=== PATIENT | female | born 1950 | race Caucasian/White ===

== ENCOUNTER 2017-02-11 22:59 | Emergency (ER) | payer OTHER ==
[~2017-02-11] VITALS: Ht 154.9 cm; Wt 90.7 kg
--- NOTE | 2017-02-12 | Emergency Room Report ---
History of Present Illness General Chief Complaint: Wound Recheck/Suture Removal Source: Patient Present Illness HPI 67YOF walk-in with "The RN mechanical maintenance supervisor Jarred on 4th floor told me to go to the ER to get my legs checked before I can see my son again." Patient states son is [place] 4th floor [place] [facility] [place] Patient endorses wounds to back of thighs for 1.5 years and "chronic venous stasis ulcers" of bilateral lower legs. Was admitted at [facility] recently per patient and had IV and PO Abx. Not on Abx currently No history of DM Denies fever/chills Allergies: Coded Allergies: No Known Allergies (Unverified , 02/11/17) Patient History Past Medical History: other - Chronic venous stasis ulcers Past Surgical History: none Pertinent Family History: none Social History: Denies: smoking, alcohol use, drug use Last Menstrual Period: N/A Now: No Immunizations: UTD Reviewed Nursing Documentation: PMH: Agreed, PSxH: Agreed Nursing Documentation-PMH Hx Hypertension: Yes Review of Systems All Other Systems: negative except mentioned in HPI Physical Exam Vital Signs Date Time Temp Pulse Resp B/P (MAP) Pulse Ox O2 Delivery O2 Flow Rate FiO2 02/11/17 23:13 98.2 69 16 146/69 99 Room Air Sp02 EP Interpretation: reviewed, normal General Appearance: normal inspection, well appearing, no apparent distress, alert, GCS 15, non-toxic, obese, other - Wheelchair bound, unkempt, dirty Head: normocephalic, atraumatic Eyes: bilateral eye PERRL, bilateral eye EOMI ENT: normal ENT inspection, hearing grossly normal, normal voice Neck: normal inspection, full range of motion, supple, no bony tend Respiratory: normal inspection, lungs clear, normal breath sounds, no respiratory distress, no retraction, no wheezing Cardiovascular #1: regular rate, rhythm, no edema Gastrointestinal: normal inspection, normal bowel sounds, non tender, soft, no guarding, no hernia Genitourinary: no CVA tenderness Musculoskeletal: normal inspection, back normal, normal range of motion, Aneta' s Sign negative Neurologic: normal inspection, alert, oriented x3, responsive, leather carver III-XII nml as tested, motor strength/tone normal, speech normal Psychiatric: normal inspection, judgement/insight normal, mood/affect normal Skin: other - Bilateral posterior thighs: large areas of abrasions. No cellulitis. No palpable warmth. No pus drainage. Bilateral lower extremities wrapped with GAURI wraps and kerlex - unwrapped to reveal 3 areas of skin breakdown - 2 on left anteiror and medial lower left leg and 1 area of skin breakdown on right lower leg. Again, no sign of infection. No blisters. No pus. No warmth Medical Decision Making Diagnostic Impression: Primary Impression: Encounter for wound re-check Additional Impressions: Skin breakdown Abrasions of multiple sites Chronic venous stasis dermatitis of both lower extremities ER Course Wounds unwrapped, cleaned, redressed VSS> Afebrile. No sign of infection No decubitus ulcers Encouraged more mobility - patient states she stands up out of chair with support - to prevent worsening skin breakdown DC home Last Vital Signs Date Time Temp Pulse Resp B/P (MAP) Pulse Ox O2 Delivery O2 Flow Rate FiO2 02/11/17 23:13 98.2 69 16 146/69 99 Room Air Referrals: NON PHYSICIAN (PCP) JARED PETE M.D. Feb 12, 2017 00:00
[2017-02-12 00:02] VITALS: BP 146/69
[2017-02-12 00:35] VITALS: BP 146/69
== END 2017-02-12 00:30 | disposition home or self-care (01) ==
LOC: EMR 23:32
DX: I83.029 Varicose veins of left lower extremity with ulcer of unspecified site (principal); I83.019 Varicose veins of right lower extremity with ulcer of unspecified site; I87.2 Venous insufficiency (chronic) (peripheral); S70.312A Abrasion, left thigh, initial encounter; S70.311A Abrasion, right thigh, initial encounter; X58.XXXA Exposure to other specified factors, initial encounter; Y92.89 Other specified places as the place of occurrence of the external cause; I10 Essential (primary) hypertension
CPT/HCPCS: 99281

== ENCOUNTER 2017-02-12 23:24 | Emergency (ER) | payer OTHER ==
[~2017-02-12] VITALS: Ht 152.4 cm; Wt 90.7 kg
--- NOTE | 2017-02-13 00:17 | Emergency Room Report ---
History of Present Illness General Chief Complaint: Wound Recheck/Suture Removal Source: Patient, Family Member Present Illness HPI Is a 67-year-old female who is wheelchair-bound. She has a history of venous stasis ulcer. She was here yesterday for wound check in her legs. She has some bleeding ulcer that was cleaned and wrapped. Her son is admitted here for seizure. She came down to the waiting room and was sitting there for several hours charging her phone. She then checked in saying that she has some bleeding in her thighs. No nausea no vomiting. Denies any other complaint. Onset today. Allergies: Coded Allergies: No Known Allergies (Unverified , 02/11/17) Patient History Past Medical History: see triage record, old chart reviewed Past Surgical History: other Pertinent Family History: none Social History: Denies: smoking Now: No Immunizations: other Reviewed Nursing Documentation: PMH: Agreed, PSxH: Agreed Nursing Documentation-PMH Hx Hypertension: Yes Review of Systems Eye: Denies: eye pain, blurred vision ENT: Denies: ear pain, nose congestion, throat swelling Respiratory: Denies: cough, shortness of breath Cardiovascular: Denies: chest pain, palpitations Gastrointestinal: Denies: abdominal pain, diarrhea, nausea, vomiting Musculoskeletal: Denies: back pain, joint pain Skin: Denies: rash Neurological: Denies: headache, numbness Endocrine: Denies: increased thirst, increased urine Hematologic/Lymphatic: Denies: easy bruising All Other Systems: negative except mentioned in HPI Physical Exam Vital Signs Date Time Temp Pulse Resp B/P (MAP) Pulse Ox O2 Delivery O2 Flow Rate FiO2 02/13/17 00:03 97.0 73 16 133/56 96 Room Air vitals normal Sp02 EP Interpretation: reviewed, normal General Appearance: well appearing, no apparent distress, alert, obese Head: normocephalic, atraumatic Eyes: bilateral eye PERRL, bilateral eye EOMI ENT: hearing grossly normal, normal pharynx Neck: full range of motion, supple, no meningismus Respiratory: chest non-tender, lungs clear, normal breath sounds Cardiovascular #1: regular rate, rhythm, no murmur Gastrointestinal: normal bowel sounds, non tender, no mass, no organomegaly, no bruit, non-distended Musculoskeletal: back normal, other - Bilateral mid thighs with pressure ulcers. No active bleeding. No abscess. Psychiatric: mood/affect normal Skin: warm/dry Medical Decision Making Diagnostic Impression: Primary Impression: Pressure ulcer of upper thigh Qualified Codes: L89.202 - Pressure ulcer of unspecified hip, stage 2 ER Course Patient with pressure ulcers of her thighs. This is from friction a sitting on her we'll chair constantly. She can't transfer [id number] and bear weight. Advised her to increase mobility. No evidence of infection. Wound was dressed and patient will be discharged home. Last Vital Signs Date Time Temp Pulse Resp B/P (MAP) Pulse Ox O2 Delivery O2 Flow Rate FiO2 02/13/17 00:03 97.0 73 16 133/56 96 Room Air Status: improved Disposition: HOME, SELF-CARE Condition: Stable Referrals: [facility]ERR[facility] (PCP) Additional Instructions: Followup with your DrRusty in 7 days. Tried to get out of the wheelchair more frequently. Keep wound clean. Return if worse. JORDAN JARA M.D. Feb 13, 2017 00:17
[2017-02-13 00:30] VITALS: BP 133/56
[2017-02-13 00:49] VITALS: BP 133/56
== END 2017-02-13 00:49 | disposition home or self-care (01) ==
LOC: EMR 23:49
DX: L89.892 Pressure ulcer of other site, stage 2 (principal); I87.8 Other specified disorders of veins
CPT/HCPCS: 99282

== ENCOUNTER 2017-02-16 12:07 | Inpatient (IN) | payer OTHER ==
[~2017-02-16] VITALS: Ht 162.6 cm; Wt 64.9 kg
[2017-02-16 12:30] VITALS: BP 155/69
[2017-02-16] MEDS ORDERED: Vancomycin 1 GM in NS 275 ML IV ONE (15:00)
[2017-02-16] MEDS ORDERED: Norco 5mg/325mg tab ORAL ONE (15:00)
[2017-02-16 16:11] LABS: BASOPHILS % (AUTO) 1.5 % (0.0-2.0); EOSINOPHILS % (AUTO) 6.2 % (0.0-3.0); LYMPHOCYTES % (AUTO) 21.2 % (20.0-45.0); MEAN CORPUSCULAR HEMOGLOBIN 26.9 PG (27.0-31.0); MEAN CORPUSCULAR HGB CONC 30.3 G/DL (32.0-36.0); MEAN CORPUSCULAR VOLUME 89 FL (80-99); MONOCYTES % (AUTO) 6.1 % (1.0-10.0); PLATELET COUNT 591 K/UL (150-450); RED BLOOD COUNT 4.04 M/UL (4.20-5.40); RED CELL DISTRIBUTION WIDTH 18.6 % (11.6-14.8); WHITE BLOOD COUNT 9.5 K/UL (4.8-10.8)
[2017-02-16 16:40] LABS: ALANINE AMINOTRANSFERASE 12 U/L (12-78); ALBUMIN/GLOBULIN RATIO 0.8 (1.0-2.7); ANION GAP 11 mmol/L (5-15); ASPARTATE AMINO TRANSFERASE 23 U/L (15-37); CALCIUM 9.9 MG/DL (8.5-10.1); CARBON DIOXIDE 25 MMOL/L (21-32); CHLORIDE 99 MMOL/L (98-107); CREATININE 1.5 MG/DL (0.55-1.30); GLOMERULAR FILTRATION RATE 34.9 mL/min (>60); POTASSIUM 4.5 MMOL/L (3.5-5.1); SODIUM 135 MMOL/L (136-145); TOTAL PROTEIN 8.7 G/DL (6.4-8.2)
[2017-02-16] MEDS ORDERED: Vancomycin 1gm inj IVPB ONE (16:41)
--- NOTE | 2017-02-16 16:41 | Emergency Room Report ---
History of Present Illness General Chief Complaint: General Complaint Source: Patient, EMS Present Illness HPI This patient is well-known to [facility]. She has a history of chronic venous stasis ulcers of her posterior thighs and lower extremities. She is non-ambulatory and is always in a wheelchair which is why she has developed ulcers on her posterior thighs. She has been seen at [facility]. She's also been seen here twice in the past 2 weeks for the same symptoms. The wounds are oozing and have a palpable liver. She is also in ongoing pain. She states that she was seen at [facility] and was admitted there for some time. She states that she is staying in hotel room is because she and her lost their apartment. She has been unable to arrange home health wound care secondary to her living situation. She states her symptoms are intolerable. She has no other complaints. Allergies: Coded Allergies: No Known Allergies (Unverified , 02/11/17) Patient History Past Medical History: other - Hypothyroid, non-ambulatory, venous stasis ulcers. Social History: Denies: smoking, alcohol use, drug use Reviewed Nursing Documentation: PMH: Agreed, PSxH: Agreed Nursing Documentation-PMH Hx Hypertension: Yes Review of Systems All Other Systems: negative except mentioned in HPI Physical Exam Vital Signs Date Time Temp Pulse Resp B/P (MAP) Pulse Ox O2 Delivery O2 Flow Rate FiO2 02/16/17 12:00 98.1 80 16 155/69 98 Room Air Sp02 EP Interpretation: reviewed, normal General Appearance: no apparent distress, alert, GCS 15, non-toxic Head: normocephalic, atraumatic Eyes: bilateral eye normal inspection, bilateral eye PERRL ENT: hearing grossly normal, normal pharynx, no angioedema, normal voice Neck: full range of motion, supple/symm/no masses Respiratory: chest non-tender, lungs clear, normal breath sounds, speaking full sentences Cardiovascular #1: regular rate, rhythm, no edema Gastrointestinal: normal bowel sounds, non tender, soft, non-distended, no guarding, no rebound Rectal: deferred Musculoskeletal: back normal, other - Large decubitus ulcers bilateral posterior thighs with surrounding erythema. BLE venous stasis w/ ulcerations. Neurologic: alert, oriented x3, responsive, motor strength/tone normal, sensory intact, speech normal Psychiatric: judgement/insight normal, memory normal, mood/affect normal, no suicidal/homicidal ideation Skin: well hydrated, other - See MSK exam Medical Decision Making Diagnostic Impression: Primary Impression: Cellulitis Additional Impressions: Decubitus ulcers Venous stasis ulcer ER Course This patient has ongoing decubitus ulcer aren't her bilateral posterior thighs. There is a foul odor and a large amount of purulent discharge to the area. There is surrounding erythema. This is concerning for cellulitis. Patient was given IV vancomycin. The patient has major social challenges. She is living in a hotel and is unable to get the wound care that she needs. She is not getting appropriate care and is gravely disabled. She'll be admitted for further assessment of her wound and treatment of her cellulitis. She will likely need to be placed into a [facility] facility. Laboratory Tests Test 02/16/17 15:40 White Blood Count 9.5 K/UL (4.8-10.8) Red Blood Count 4.04 M/UL (4.20-5.40) L Hemoglobin 10.9 G/DL (12.0-16.0) L Hematocrit 35.8 % (37.0-47.0) L Mean Corpuscular Volume 89 FL (80-99) Mean Corpuscular Hemoglobin 26.9 PG (27.0-31.0) L Mean Corpuscular Hemoglobin Concent 30.3 G/DL (32.0-36.0) L Red Cell Distribution Width 18.6 % (11.6-14.8) H Platelet Count 591 K/UL (150-450) H Mean Platelet Volume 5.0 FL (6.5-10.1) L Neutrophils (%) (Auto) 65.0 % (45.0-75.0) Lymphocytes (%) (Auto) 21.2 % (20.0-45.0) Monocytes (%) (Auto) 6.1 % (1.0-10.0) Eosinophils (%) (Auto) 6.2 % (0.0-3.0) H Basophils (%) (Auto) 1.5 % (0.0-2.0) Sodium Level Pending Potassium Level Pending Chloride Level Pending Carbon Dioxide Level Pending Blood Urea Nitrogen Pending Creatinine Pending Estimate Glomerular Filtration Rate Pending Glucose Level Pending Lactic Acid Level Pending Calcium Level Pending Total Bilirubin Pending Aspartate Amino Transferase (AST) Pending Alanine Aminotransferase (ALT) Pending Alkaline Phosphatase Pending Total Creatine Kinase Pending Total Protein Pending Albumin Pending Globulin Pending See EMR for labs Last Vital Signs Date Time Temp Pulse Resp B/P (MAP) Pulse Ox O2 Delivery O2 Flow Rate FiO2 02/16/17 12:30 98.1 16 155/69 98 Room Air 02/16/17 12:00 80 Disposition: ADMITTED INPATIENT Condition: Stable Scripts Trimethoprim/Sulfamethoxazole (Bactrim Ds Tablet) 1 Each Tablet 1 EA ORAL DAILY for 5 Days, TAB Prov: MY,ISMA 02/22/17 Ciprofloxacin* (CIPROFLOXACIN*) 250 Mg Tablet 250 MG ORAL EVERY 12 HOURS for 5 Days, TAB Prov: ISMA PEPE 02/22/17 Amlodipine Besylate (Norvasc) 5 Mg Tablet 5 MG ORAL BID for 30 Days, TAB Prov: ISMA PEPE 02/22/17 Referrals: [facility],REFERRING (PCP) TINA LAGUNA D.O. Feb 16, 2017 16:41
[2017-02-16] MEDS ORDERED: Miralax 17gm pkt ORAL PRN (16:45)
[2017-02-16] MEDS ORDERED: Nitroglycerin Subl 0.4mg tab SL PRN (16:45)
[2017-02-16] MEDS ORDERED: Albuterol/Ipratropium 3ml neb HHN PRN (16:45)
[2017-02-16 16:55] LABS: APPEARANCE,URINE CLEAR; KETONES,URINE NEGATIVE (NEGATIVE); LEUKOCYTE ESTERASE ,URINE 3+ (NEGATIVE); NITRITE,URINE NEGATIVE (NEGATIVE); PH,URINE 7 (4.5-8.0); PROTEIN,URINE NEGATIVE (NEGATIVE); UROBILINOGEN,URINE NORMAL MG/DL (0.0-1.0)
[2017-02-16 17:33] LABS: AMORPHOUS SEDIMENT,UR FEW /LPF; BACTERIA,URINE MANY /HPF; RBC,URINE 15-20 /HPF (0 - 2); SQUAMOUS EPITHELIAL CELL,UR MODERATE /LPF (NONE/OCC)
[2017-02-16] MEDS ORDERED: SYNTHROID25 MCG ORAL (17:42)
[2017-02-16] MEDS ORDERED: NEURONTIN100 MG ORAL (17:42)
[2017-02-16 18:07] VITALS: BP 158/63
[2017-02-16 19:30] VITALS: BP 164/69
[2017-02-16] MEDS: Cefepime HCl 2 GM in NS 110 ML IV SCH (21:10)
[2017-02-16] MEDS: Heparin 5000 units/ml inj SUBQ SCH (21:12)
--- NOTE | 2017-02-16 22:47 | Consultation ---
Consult Note Consult Note ID CONSULT: Von# [id number] Assessment/Plan ASSESSMENT: 67 y/o female with: // Possible UTI - UCx pending // Chronic nonhealing bilateral posterior thigh ulcers ( >3yrs ) // Chronic nonhealing BLE venous stasis ulcers // Afebrile without leukocytosis // Renal insufficiency ?acute vs chronic // Thrombocytosis // Obesity // Homelessness // Wheelchair bound // NKDA // Full Code PLAN: - continue empiric IV vancomycin, cefepime d# 1 - check wound cultures - f/u blood, urine cultures - f/u doppler - monitor CBC, temperatures - monitor BMP - wound care - may need placement Thanks! Will follow ALFREDO CORONADO Feb 16, 2017 22:47
--- NOTE | 2017-02-16 22:52 | History and Physical ---
History of Present Illness General Date patient seen: Feb 17, 2017 Reason for Hospitalization: General Complaint Present Illness HPI 67 year old female with hx of chronic venous stasis ulcers of her posterior thighs and lower extremities. She states that she is staying in hotel room is because she and her lost their apartment. She has been unable to arrange home health wound care secondary to her living situation. She states her symptoms are intolerable. She is admitted for nonhealing wound and cellulitis. Allergies: Coded Allergies: No Known Allergies (Unverified , 02/11/17) Medication History Scheduled Gabapentin* (Neurontin*), Unknown Dose ORAL THREE TIMES A DAY, (Reported) Levothyroxine Sodium* (Synthroid*), Unknown Dose ORAL DAILY, (Reported) Patient History Healthcare decision maker Resuscitation status Full Code Advanced Directive on File Past Medical/Surgical History Past Medical/Surgical History: (1) Decubitus ulcers (2) Venous stasis ulcer Review of Systems All Other Systems: negative except mentioned in HPI Physical Exam General Appearance: WD/WN Lines, tubes and drains: peripheral, central line HEENT: normocephalic, atraumatic Respiratory/Chest: chest wall non-tender, lungs clear Breasts: no masses Abdomen: non tender Skin Exam: palled, rash, other - chronic ulcer in posterior tigh and venous stsasis ulcers Neurologic: variety saw operator II-XII grossly normal, no motor/sensory deficits Last 24 Hour Vital Signs Date Time Temp Pulse Resp B/P (MAP) Pulse Ox O2 Delivery O2 Flow Rate FiO2 02/16/17 18:35 98.1 60 11 158/63 99 Room Air 02/16/17 18:07 98.1 60 11 158/63 99 Room Air 02/16/17 12:30 98.1 16 155/69 98 Room Air 02/16/17 12:00 98.1 80 16 155/69 98 Room Air Intake and Output 02/16/17 02/17/17 19:00 07:00 Intake Total 0 ml Balance 0 ml Intake Oral 0 ml # Voids 1 Laboratory Tests Test 02/16/17 15:40 02/16/17 16:24 White Blood Count 9.5 K/UL (4.8-10.8) Red Blood Count 4.04 M/UL (4.20-5.40) L Hemoglobin 10.9 G/DL (12.0-16.0) L Hematocrit 35.8 % (37.0-47.0) L Mean Corpuscular Volume 89 FL (80-99) Mean Corpuscular Hemoglobin 26.9 PG (27.0-31.0) L Mean Corpuscular Hemoglobin Concent 30.3 G/DL (32.0-36.0) L Red Cell Distribution Width 18.6 % (11.6-14.8) H Platelet Count 591 K/UL (150-450) H Mean Platelet Volume 5.0 FL (6.5-10.1) L Neutrophils (%) (Auto) 65.0 % (45.0-75.0) Lymphocytes (%) (Auto) 21.2 % (20.0-45.0) Monocytes (%) (Auto) 6.1 % (1.0-10.0) Eosinophils (%) (Auto) 6.2 % (0.0-3.0) H Basophils (%) (Auto) 1.5 % (0.0-2.0) Sodium Level 135 MMOL/L (136-145) L Potassium Level 4.5 MMOL/L (3.5-5.1) Chloride Level 99 MMOL/L (98-107) Carbon Dioxide Level 25 MMOL/L (21-32) Anion Gap 11 mmol/L (5-15) Blood Urea Nitrogen 22 mg/dL (7-18) H Creatinine 1.5 MG/DL (0.55-1.30) H Estimat Glomerular Filtration Rate 34.9 mL/min (>60) Glucose Level 98 MG/DL (74-106) Lactic Acid Level 0.90 mmol/L (0.66-2.22) Calcium Level 9.9 MG/DL (8.5-10.1) Total Bilirubin 0.4 MG/DL (0.2-1.0) Aspartate Amino Transf (AST/SGOT) 23 U/L (15-37) Alanine Aminotransferase (ALT/SGPT) 12 U/L (12-78) Alkaline Phosphatase 112 U/L (46-116) Total Creatine Kinase 232 U/L (26-308) Total Protein 8.7 G/DL (6.4-8.2) H Albumin 3.9 G/DL (3.4-5.0) Globulin 4.8 g/dL Albumin/Globulin Ratio 0.8 (1.0-2.7) L Urine Color Pale yellow Urine Appearance Clear Urine pH 7 (4.5-8.0) Urine Specific Curtis 1.005 (1.005-1.035) Urine Protein Negative (NEGATIVE) Urine Glucose (UA) Negative (NEGATIVE) Urine Ketones Negative (NEGATIVE) Urine Occult Blood 4+ (NEGATIVE) H Urine Nitrite Negative (NEGATIVE) Urine Bilirubin Negative (NEGATIVE) Urine Urobilinogen Normal MG/DL (0.0-1.0) Urine Leukocyte Esterase 3+ (NEGATIVE) H Urine RBC 15-20 /HPF (0 - 2) H Urine WBC 10-15 /HPF (0 - 2) H Urine Squamous Epithelial Cells Moderate /LPF (NONE/OCC) H Urine Amorphous Sediment Few /LPF (NONE) H Urine Bacteria Many /HPF (NONE) H Height (Feet): 5 Height (Inches): 4.00 Weight (Pounds): 143 Medications Current Medications Medications (Trade) Dose Ordered Sig/Luz Route PRN Reason Start Time Stop Time Status Last Admin Dose Admin Acetaminophen (Tylenol) 650 mg Q4H PRN ORAL fever 02/16/17 16:45 03/18/17 16:44 Albuterol/ Ipratropium (DuoNeb 0.5-3(2.5)mg/3ml) 3 ml Q4H PRN HHN Shortness of Breath 02/16/17 16:45 02/21/17 16:44 Cefepime HCl 2 gm/ Sodium Chloride 110 ml @ 220 mls/hr DAILY@2000 IV 02/16/17 20:00 02/23/17 19:59 02/16/17 21:10 Dextrose (Dextrose 50%) STAT PRN IV Hypoglycemia 02/16/17 16:45 03/18/17 16:44 Heparin Sodium (Porcine) (Heparin 5000 units/ml) 5,000 units EVERY 12 HOURS SUBQ 02/16/17 21:00 03/18/17 20:59 02/16/17 21:12 Morphine Sulfate (Morphine Sulfate) 2 mg Q4H PRN IVP Moderate Pain (Pain Scale 4-6) 02/16/17 16:45 02/23/17 16:44 Nitroglycerin (Ntg) 0.4 mg Every 5 Minutes PRN SL Prn Chest Pain 02/16/17 16:45 03/18/17 16:44 Ondansetron HCl (Zofran) 4 mg Q6H PRN IVP Nausea & Vomiting 02/16/17 16:45 03/18/17 16:44 Polyethylene Glycol (Miralax) 17 gm DAILYPRN PRN ORAL Constipation 02/16/17 16:45 03/18/17 16:44 Temazepam (Restoril) 15 mg HSPRN PRN ORAL Insomnia 02/16/17 16:45 02/23/17 16:44 Vancomycin HCl (Vanco rx to dose) 1 ea DAILY PRN MISC PER RX PROTOCOL 02/16/17 18:00 03/18/17 17:59 Vancomycin/Sodium Chloride 250 ml @ 166.667 mls/hr Q24H IVPB 02/17/17 17:00 02/22/17 16:59 Assessment/Plan Problem List: (1) Cellulitis ICD Codes: L03.90 - Cellulitis, unspecified SNOMED: 506752113 (2) Decubitus ulcers ICD Codes: L89.90 - Pressure ulcer of unspecified site, unspecified stage SNOMED: 172893446 (3) Venous stasis ulcer ICD Codes: I83.009 - Varicose veins of unspecified lower extremity with ulcer of unspecified site; L97.909 - Non-pressure chronic ulcer of unspecified part of unspecified lower leg with unspecified severity SNOMED: 831809961, [id number], 16269004, [id number] Assessment/Plan wound care iv ab x check [email or web address]. ISMA PEPE Feb 16, 2017 22:52
[2017-02-17] VITALS: BP 162/73
[2017-02-17] MEDS ORDERED: Vancomycin 1 GM in D5W 275 ML IV SCH (00:30)
[2017-02-17 04:00] VITALS: BP 160/76
--- NOTE | 2017-02-17 07:00 | Consultation ---
DATE OF CONSULTATION: 02/16/2017 INFECTIOUS DISEASE CONSULTATION CONSULTING PHYSICIAN: Jared Garcia M.D. REQUESTING PHYSICIAN: Sergey Kilgore M.D. REASON FOR CONSULTATION: Chronic nonhealing ulcer. HISTORY OF PRESENT ILLNESS: This is a 67-year-old homeless, wheelchair-bound female with a history of chronic nonhealing bilateral lower extremity venous stasis ulcers and chronic nonhealing posterior thigh ulcers, admitted on 02/16/2017 with worsening. Posterior thigh ulcers have been present for more than three years after initial trauma. The patient is afebrile without leukocytosis and has evidence of acute renal insufficiency and urinalysis suggesting probable UTI. Blood and urine cultures are pending and the patient has been started on empiric IV vancomycin and cefepime. Infectious Disease now consulted to assist in management. PAST MEDICAL HISTORY: 1. Chronic nonhealing bilateral venous stasis ulcers. 2. Chronic nonhealing bilateral posterior thigh ulcers after initial trauma. 3. Hypothyroidism. MEDICATIONS: 1. Vancomycin. 2. Cefepime. ALLERGIES: No known drug allergies. SOCIAL HISTORY: The patient is homeless and wheelchair bound. FAMILY HISTORY: Reviewed and noncontributory. REVIEW OF SYSTEMS: As per history of present illness. Ten systems reviewed, all pertinent positives and negatives noted. PHYSICAL EXAMINATION: VITAL SIGNS: Maximum temperature 98.1 degrees, blood pressure 158/63, heart rate 60, respiratory rate 11, and saturating 99% on room air. GENERAL: No apparent distress, nontoxic appearing. HEENT: Poor dentition. CARDIOVASCULAR: Regular rate and rhythm. No murmurs. PULMONARY: Clear to auscultation bilaterally. ABDOMEN: Bowel sounds present. Soft, nondistended, and nontender. EXTREMITIES: Bilateral lower extremity edema. SKIN: Bilateral posterior thigh and bilateral ankle ulcers documented elsewhere. NEUROLOGICAL: Alert and oriented x3. Nonfocal. LABORATORY DATA: White blood cell count 9.5, hemoglobin 12.9, and platelets 591,000. Sodium 135, potassium 4.5, chloride 99, bicarbonate 25, BUN 22, and creatinine 1.5. Liver function tests within normal limits. Lactic acid 0.9. Urinalysis with pyuria and bacteriuria. MICROBIOLOGY: 1. 02/16/2017 blood culture pending. 2. 02/16/2017 urine culture pending. IMAGIN02/16/2017 bilateral lower extremity Doppler ultrasound pending. ASSESSMENT: 1. Possible urinary tract infection. Urine culture is pending. 2. Chronic nonhealing bilateral posterior thigh ulcers. 3. Chronic nonhealing bilateral lower extremity venous stasis ulcers. 4. Afebrile without leukocytosis. 5. Renal insufficiency, question acute versus chronic. 6. Thrombocytosis. 7. Obesity. 8. Homelessness. 9. Wheelchair bound. 10. No known drug allergies. 11. Full Code. PLAN: 1. Continue empiric IV vancomycin and cefepime day #1. 2. Check wound cultures. 3. Follow up blood and urine cultures. 4. Follow up Doppler ultrasound. 5. Monitor CBC and temperatures. 6. Monitor BMP. 7. Wound care. 8. May need placement. Thank you. We will follow. Jared Garcia M.D. DR: Ruth JOB#: [id number] CC: Sergey Kilgore M.D.; Fax#: [phone] Fabio Ryan M.D; FAX#: [phone]
[2017-02-17 07:53] LABS: PROTHROMBIN TIME 10.2 SEC (9.30-11.50)
[2017-02-17 07:54] LABS: MEAN CORPUSCULAR HEMOGLOBIN 27.8 PG (27.0-31.0); MEAN CORPUSCULAR HGB CONC 31.2 G/DL (32.0-36.0); MEAN CORPUSCULAR VOLUME 89 FL (80-99); MEAN PLATELET VOLUME 4.9 FL (6.5-10.1); PLATELET COUNT 487 K/UL (150-450); RED BLOOD COUNT 3.41 M/UL (4.20-5.40); RED CELL DISTRIBUTION WIDTH 18.9 % (11.6-14.8); WHITE BLOOD COUNT 7.5 K/UL (4.8-10.8)
[2017-02-17 07:58] LABS: ALANINE AMINOTRANSFERASE 12 U/L (12-78); ALBUMIN/GLOBULIN RATIO 0.7 (1.0-2.7); ANION GAP 9 mmol/L (5-15); ASPARTATE AMINO TRANSFERASE 20 U/L (15-37); CALCIUM 9.3 MG/DL (8.5-10.1); CARBON DIOXIDE 25 MMOL/L (21-32); CHLORIDE 104 MMOL/L (98-107); CREATININE 1.4 MG/DL (0.55-1.30); GLOMERULAR FILTRATION RATE 37.8 mL/min (>60); POTASSIUM 4.1 MMOL/L (3.5-5.1); SODIUM 138 MMOL/L (136-145); TOTAL PROTEIN 7.4 G/DL (6.4-8.2)
[2017-02-17 08:19] LABS: LACTATE DEHYDROGENASE 198 U/L (81-234)
[2017-02-17 08:43] VITALS: BP 153/57
[2017-02-17 08:48] LABS: IRON 21 ug/dL (50-175); TOTAL IRON BINDING CAPACITY 276 ug/dL (250-450)
[2017-02-17 09:02] LABS: FOLIC ACID 4.6 NG/ML (3.1-17.5)
[2017-02-17 09:38] LABS: ANISOCYTOSIS 1+; BAND NEUTROPHILS % (MANUAL) 0 % (0-8); BASOPHILS % (MANUAL) 0 % (0-2); EOSINOPHILS % (MANUAL) 2 % (0-3); HYPOCHROMASIA 1+; LYMPHOCYTES % (MANUAL) 17 % (20-45); NEUTROPHILS % (MANUAL) 79 % (45-75); PLATELET ESTIMATE ADEQUATE; PLATELET MORPHOLOGY NORMAL; TOTAL CELLS COUNTED 100
[2017-02-17] MEDS: Heparin 5000 units/ml inj SUBQ SCH ×2 (09:41→20:28)
[2017-02-17 09:50] LABS: ERYTHROCYTE SEDIMENTATION RATE 109 MM/HR (0-30); PATH BLOOD SMEAR/OMC SENT TO PATHOLOGIST
[2017-02-17 10:23] LABS: RETICULOCYTE COUNT 1.3 % (0.0-2.0)
[2017-02-17] MEDS: Morphine Sulfate 2mg/ml Inj IVP PRN ×2 (10:48→16:23)
[2017-02-17 12:00] VITALS: BP 146/67
[2017-02-17 16:00] VITALS: BP 143/55
[2017-02-17] MEDS: Vancomycin 750mg/NS 250ml IVPB SCH (16:31)
[2017-02-17] MEDS: Cefepime HCl 2 GM in NS 110 ML IV SCH (20:24)
--- NOTE | 2017-02-17 21:03 | Infectious Diseases Prog Note ---
Assessment/Plan Assessment/Plan ASSESSMENT: 67 y/o female with: // Possible UTI - UCx pending // Chronic nonhealing bilateral posterior thigh ulcers ( >3yrs ) - WCx pending // Chronic nonhealing BLE venous stasis ulcers - WCx pending // Afebrile without leukocytosis // Renal insufficiency ?acute vs chronic // Thrombocytosis // Obesity // Homelessness // Wheelchair bound // NKDA // Full Code PLAN: - continue empiric IV vancomycin, cefepime d# 2 - f/u cultures - f/u doppler - monitor CBC, temperatures - monitor BMP - wound care - may need placement Subjective Allergies: Coded Allergies: No Known Allergies (Unverified , 02/11/17) Subjective remains afebrile no new complaint Objective Vital Signs Last 24 Hour Vital Signs Date Time Temp Pulse Resp B/P (MAP) Pulse Ox O2 Delivery O2 Flow Rate FiO2 02/17/17 16:00 97.2 67 18 143/55 92 Room Air 02/17/17 12:00 97.5 69 18 146/67 97 Room Air 02/17/17 10:05 99 Room Air 21 02/17/17 08:43 97.7 63 19 153/57 97 Room Air 02/17/17 04:00 97.9 68 18 160/76 96 Room Air 02/17/17 00:00 97.7 67 18 162/73 97 Room Air Height (Feet): 5 Height (Inches): 4.00 Weight (Pounds): 143 General Appearance: no acute distress Respiratory/Chest: no respiratory distress Cardiovascular: normal rate, regular rhythm Abdomen: normal bowel sounds, soft, non tender, non distended Skin: ulcers Microbiology Date/Time Source Procedure Growth Status 02/16/17 16:24 Urine,Clean Catch Urine Culture - Preliminary Resulted Laboratory Tests Test 02/17/17 05:00 White Blood Count 7.5 K/UL (4.8-10.8) Red Blood Count 3.41 M/UL (4.20-5.40) L Hemoglobin 9.5 G/DL (12.0-16.0) L Hematocrit 30.4 % (37.0-47.0) L Mean Corpuscular Volume 89 FL (80-99) Mean Corpuscular Hemoglobin 27.8 PG (27.0-31.0) Mean Corpuscular Hemoglobin Concent 31.2 G/DL (32.0-36.0) L Red Cell Distribution Width 18.9 % (11.6-14.8) H Platelet Count 487 K/UL (150-450) H Mean Platelet Volume 4.9 FL (6.5-10.1) L Neutrophils (%) (Auto) % (45.0-75.0) Lymphocytes (%) (Auto) % (20.0-45.0) Monocytes (%) (Auto) % (1.0-10.0) Eosinophils (%) (Auto) % (0.0-3.0) Basophils (%) (Auto) % (0.0-2.0) Differential Total Cells Counted 100 Neutrophils % (Manual) 79 % (45-75) H Lymphocytes % (Manual) 17 % (20-45) L Monocytes % (Manual) 2 % (1-10) Eosinophils % (Manual) 2 % (0-3) Basophils % (Manual) 0 % (0-2) Band Neutrophils 0 % (0-8) Platelet Estimate Adequate Platelet Morphology Normal Hypochromasia 1+ Anisocytosis 1+ Erythrocyte Sedimentation Rate 109 MM/HR (0-30) H Reticulocyte Count 1.3 % (0.0-2.0) Prothrombin Time 10.2 SEC (9.30-11.50) Prothromb Time International Ratio 1.0 (0.9-1.1) Activated Partial Thromboplast Time 29 SEC (23-33) Sodium Level 138 MMOL/L (136-145) Potassium Level 4.1 MMOL/L (3.5-5.1) Chloride Level 104 MMOL/L (98-107) Carbon Dioxide Level 25 MMOL/L (21-32) Anion Gap 9 mmol/L (5-15) Blood Urea Nitrogen 19 mg/dL (7-18) H Creatinine 1.4 MG/DL (0.55-1.30) H Estimat Glomerular Filtration Rate 37.8 mL/min (>60) Glucose Level 112 MG/DL (74-106) H Calcium Level 9.3 MG/DL (8.5-10.1) Iron Level 21 ug/dL (50-175) L Total Iron Binding Capacity 276 ug/dL (250-450) Percent Iron Saturation 8 % (15-50) L Unsaturated Iron Binding 255 ug/dL (112-346) Total Bilirubin 0.3 MG/DL (0.2-1.0) Aspartate Amino Transf (AST/SGOT) 20 U/L (15-37) Alanine Aminotransferase (ALT/SGPT) 12 U/L (12-78) Alkaline Phosphatase 85 U/L (46-116) Lactate Dehydrogenase 198 U/L (81-234) Total Protein 7.4 G/DL (6.4-8.2) Albumin 3.0 G/DL (3.4-5.0) L Globulin 4.4 g/dL Albumin/Globulin Ratio 0.7 (1.0-2.7) L Vitamin B12 Level 335 PG/ML (193-986) Folate 4.6 NG/ML (3.1-17.5) Current Medications Medications (Trade) Dose Ordered Sig/Luz Route PRN Reason Start Time Stop Time Status Last Admin Dose Admin Acetaminophen (Tylenol) 650 mg Q4H PRN ORAL fever 02/16/17 16:45 03/18/17 16:44 Albuterol/ Ipratropium (DuoNeb 0.5-3(2.5)mg/3ml) 3 ml Q4H PRN HHN Shortness of Breath 02/16/17 16:45 02/21/17 16:44 Cefepime HCl 2 gm/ Sodium Chloride 110 ml @ 220 mls/hr DAILY@1999 IV 02/16/17 20:00 02/23/17 19:59 02/17/17 20:24 Dextrose (Dextrose 50%) STAT PRN IV Hypoglycemia 02/16/17 16:45 03/18/17 16:44 Heparin Sodium (Porcine) (Heparin 5000 units/ml) 5,000 units EVERY 12 HOURS SUBQ 02/16/17 21:00 03/18/17 20:59 02/17/17 20:28 Morphine Sulfate (Morphine Sulfate) 2 mg Q4H PRN IVP Moderate Pain (Pain Scale 4-6) 02/16/17 16:45 02/23/17 16:44 02/17/17 16:23 Nitroglycerin (Ntg) 0.4 mg Every 5 Minutes PRN SL Prn Chest Pain 02/16/17 16:45 03/18/17 16:44 Ondansetron HCl (Zofran) 4 mg Q6H PRN IVP Nausea & Vomiting 02/16/17 16:45 03/18/17 16:44 Polyethylene Glycol (Miralax) 17 gm DAILYPRN PRN ORAL Constipation 02/16/17 16:45 03/18/17 16:44 Temazepam (Restoril) 15 mg HSPRN PRN ORAL Insomnia 02/16/17 16:45 02/23/17 16:44 Vancomycin HCl (Vanco rx to dose) 1 ea DAILY PRN MISC PER RX PROTOCOL 02/16/17 18:00 03/18/17 17:59 Vancomycin/Sodium Chloride 250 ml @ 166.667 mls/hr Q24H IVPB 02/17/17 17:00 02/22/17 16:59 02/17/17 16:31 ALFREDO CORONADO Feb 17, 2017 21:03
--- NOTE | 2017-02-17 22:03 | Pulmonology Progress Note ---
Assessment/Plan Problems: (1) Cellulitis (2) Decubitus ulcers (3) Venous stasis ulcer (4) ATN (acute tubular necrosis) Assessment/Plan continue the same iv bx wound care watch renal parameters Subjective ROS Limited/Unobtainable: No Constitutional: Reports: no symptoms HEENT: Repors: no symptoms Respiratory: Reports: no symptoms Allergies: Coded Allergies: No Known Allergies (Unverified , 02/11/17) Objective Last 24 Hour Vital Signs Date Time Temp Pulse Resp B/P (MAP) Pulse Ox O2 Delivery O2 Flow Rate FiO2 02/17/17 19:55 92 21 02/17/17 19:55 67 18 Room Air 21 02/17/17 16:00 97.2 67 18 143/55 92 Room Air 02/17/17 12:00 97.5 69 18 146/67 97 Room Air 02/17/17 10:05 99 Room Air 21 02/17/17 08:43 97.7 63 19 153/57 97 Room Air 02/17/17 04:00 97.9 68 18 160/76 96 Room Air 02/17/17 00:00 97.7 67 18 162/73 97 Room Air Intake and Output 02/17/17 02/18/17 19:00 07:00 Intake Total 480 ml Balance 480 ml Intake Oral 480 ml # Voids 3 General Appearance: WD/WN HEENT: normocephalic, atraumatic Respiratory/Chest: chest wall non-tender, lungs clear Breasts: no masses Cardiovascular: normal peripheral pulses Abdomen: normal bowel sounds, soft, non tender Genitourinary: normal external genitalia Extremities: no cyanosis Skin: no lesions, ulcers Microbiology Date/Time Source Procedure Growth Status 02/16/17 16:24 Urine,Clean Catch Urine Culture - Preliminary Resulted Laboratory Tests 02/17/17 05:00: White Blood Count 7.5, Red Blood Count 3.41L, Hemoglobin 9.5L, Hematocrit 30.4L , Mean Corpuscular Volume 89, Mean Corpuscular Hemoglobin 27.8, Mean Corpuscular Hemoglobin Concent 31.2L, Red Cell Distribution Width 18.9H, Platelet Count 487H, Mean Platelet Volume 4.9L, Neutrophils (%) (Auto) , Lymphocytes (%) (Auto) , Monocytes (%) (Auto) , Eosinophils (%) (Auto) , Basophils (%) (Auto) , Differential Total Cells Counted 100, Neutrophils % ( Manual) 79H, Lymphocytes % (Manual) 17L, Monocytes % (Manual) 2, Eosinophils % ( Manual) 2, Basophils % (Manual) 0, Band Neutrophils 0, Platelet Estimate Adequate, Platelet Morphology Normal, Hypochromasia 1+, Anisocytosis 1+, Erythrocyte Sedimentation Rate 109H, Reticulocyte Count 1.3, Prothrombin Time 10.2, Prothromb Time International Ratio 1.0, Activated Partial Thromboplast Time 29, Sodium Level 138, Potassium Level 4.1, Chloride Level 104, Carbon Dioxide Level 25, Anion Gap 9, Blood Urea Nitrogen 19H, Creatinine 1.4H, Estimat Glomerular Filtration Rate 37.8, Glucose Level 112H, Calcium Level 9.3, Iron Level 21L, Total Iron Binding Capacity 276, Percent Iron Saturation 8L, Unsaturated Iron Binding 255, Total Bilirubin 0.3, Aspartate Amino Transf (AST/ SGOT) 20, Alanine Aminotransferase (ALT/SGPT) 12, Alkaline Phosphatase 85, Lactate Dehydrogenase 198, Total Protein 7.4, Albumin 3.0L, Globulin 4.4, Albumin/Globulin Ratio 0.7L, Vitamin B12 Level 335, Folate 4.6 Current Medications Medications (Trade) Dose Ordered Sig/Luz Route PRN Reason Start Time Stop Time Status Last Admin Dose Admin Acetaminophen (Tylenol) 650 mg Q4H PRN ORAL fever 02/16/17 16:45 03/18/17 16:44 Albuterol/ Ipratropium (DuoNeb 0.5-3(2.5)mg/3ml) 3 ml Q4H PRN HHN Shortness of Breath 02/16/17 16:45 02/21/17 16:44 Cefepime HCl 2 gm/ Sodium Chloride 110 ml @ 220 mls/hr DAILY@1999 IV 02/16/17 20:00 02/23/17 19:59 02/17/17 20:24 Dextrose (Dextrose 50%) STAT PRN IV Hypoglycemia 02/16/17 16:45 03/18/17 16:44 Heparin Sodium (Porcine) (Heparin 5000 units/ml) 5,000 units EVERY 12 HOURS SUBQ 02/16/17 21:00 03/18/17 20:59 02/17/17 20:28 Morphine Sulfate (Morphine Sulfate) 2 mg Q4H PRN IVP Moderate Pain (Pain Scale 4-6) 02/16/17 16:45 02/23/17 16:44 02/17/17 16:23 Nitroglycerin (Ntg) 0.4 mg Every 5 Minutes PRN SL Prn Chest Pain 02/16/17 16:45 03/18/17 16:44 Ondansetron HCl (Zofran) 4 mg Q6H PRN IVP Nausea & Vomiting 02/16/17 16:45 03/18/17 16:44 Polyethylene Glycol (Miralax) 17 gm DAILYPRN PRN ORAL Constipation 02/16/17 16:45 03/18/17 16:44 Temazepam (Restoril) 15 mg HSPRN PRN ORAL Insomnia 02/16/17 16:45 02/23/17 16:44 Vancomycin HCl (Vanco rx to dose) 1 ea DAILY PRN MISC PER RX PROTOCOL 02/16/17 18:00 03/18/17 17:59 Vancomycin/Sodium Chloride 250 ml @ 166.667 mls/hr Q24H IVPB 02/17/17 17:00 02/22/17 16:59 02/17/17 16:31 ISMA PEPE Feb 17, 2017 22:03
[2017-02-17 23:39] VITALS: BP 146/67
[2017-02-18 04:05] VITALS: BP 140/55
[2017-02-18 08:00] VITALS: BP 156/84
[2017-02-18 08:02] LABS: ANION GAP 8 mmol/L (5-15); CALCIUM 9.2 MG/DL (8.5-10.1); CARBON DIOXIDE 27 MMOL/L (21-32); CHLORIDE 103 MMOL/L (98-107); CREATININE 1.7 MG/DL (0.55-1.30); FERRITIN 56 NG/ML (8-388); GLOMERULAR FILTRATION RATE 30.2 mL/min (>60); POTASSIUM 4.5 MMOL/L (3.5-5.1); SODIUM 138 MMOL/L (136-145)
[2017-02-18] MEDS: Heparin 5000 units/ml inj SUBQ SCH ×2 (08:28→21:41)
--- NOTE | 2017-02-18 09:20 | Pulmonology Progress Note ---
Assessment/Plan Assessment/Plan ASSESSMENT UTI Bilateral posterior thigh chronic nonhealing ulcers Venous stasis ulcers, bilateral, chronic, nonhealing ARF on CKD Obesity homeless anemia w/chair bound PLAN OF CARE MS floor Abx fup with cx urine cx + GNB 2 dif species, blood cx preliminary negative , wound cx + Staph aureus ID follows Venous Duplex BLE wound care nurse eval wound care as per wound nurse recommendations Renal US monitor renal parameters, lytes, avoid nephrotoxics nephro eval check random vanco level Pain management DVT prophylaxis bowel regimen SS eval for placement PT/OT eval Anemia w/up noted, monitor counts, transfuse prn case discussed and evaluated by supervising physician Subjective Allergies: Coded Allergies: No Known Allergies (Unverified , 02/11/17) Subjective afebrile, no leukocytosis on abx seen and evaluated by ID specialist and wound care nurse creat worse-1.7 Objective Last 24 Hour Vital Signs Date Time Temp Pulse Resp B/P (MAP) Pulse Ox O2 Delivery O2 Flow Rate FiO2 02/18/17 08:00 97.0 59 18 156/84 94 Room Air 02/18/17 04:05 97.2 55 20 140/55 91 Room Air 02/17/17 23:39 96.6 67 20 146/67 98 Room Air 02/17/17 19:55 92 21 02/17/17 19:55 67 18 Room Air 21 02/17/17 16:00 97.2 67 18 143/55 92 Room Air 02/17/17 12:00 97.5 69 18 146/67 97 Room Air 02/17/17 10:05 99 Room Air 21 General Appearance: no acute distress, other - awake, alert, female w /chair bound HEENT: normocephalic, atraumatic, anicteric, mucous membranes moist, PERRL Respiratory/Chest: chest wall non-tender, normal breath sounds Cardiovascular: normal rate, regular rhythm, no JVD Abdomen: normal bowel sounds, soft, non tender - obese Extremities: no edema Skin: other - chronic venous stasis ulcers and psoterior thigh ulcers Neurologic/Psychiatric: abnormal gait - w/c bound , alert, responsive Musculoskeletal: atrophy - BLE Microbiology Date/Time Source Procedure Growth Status 02/16/17 15:45 Blood Blood Culture - Preliminary NO GROWTH AFTER 24 HOURS Resulted 02/16/17 15:40 Blood Blood Culture - Preliminary NO GROWTH AFTER 24 HOURS Resulted 02/16/17 16:24 Urine,Clean Catch Urine Culture - Preliminary Gram Negative Bacillus 1 Gram Negative Bacillus 2 Resulted Laboratory Tests 02/18/17 05:55: Sodium Level 138, Potassium Level 4.5, Chloride Level 103, Carbon Dioxide Level 27, Anion Gap 8, Blood Urea Nitrogen 22H, Creatinine 1.7H, Estimat Glomerular Filtration Rate 30.2, Glucose Level 84, Calcium Level 9.2, Ferritin 56 Current Medications Medications (Trade) Dose Ordered Sig/Luz Route PRN Reason Start Time Stop Time Status Last Admin Dose Admin Acetaminophen (Tylenol) 650 mg Q4H PRN ORAL fever 02/16/17 16:45 03/18/17 16:44 Albuterol/ Ipratropium (DuoNeb 0.5-3(2.5)mg/3ml) 3 ml Q4H PRN HHN Shortness of Breath 02/16/17 16:45 02/21/17 16:44 Cefepime HCl 2 gm/ Sodium Chloride 110 ml @ 220 mls/hr DAILY@2000 IV 02/16/17 20:00 02/23/17 19:59 02/17/17 20:24 Dextrose (Dextrose 50%) STAT PRN IV Hypoglycemia 02/16/17 16:45 03/18/17 16:44 Heparin Sodium (Porcine) (Heparin 5000 units/ml) 5,000 units EVERY 12 HOURS SUBQ 02/16/17 21:00 03/18/17 20:59 02/18/17 08:28 Morphine Sulfate (Morphine Sulfate) 2 mg Q4H PRN IVP Moderate Pain (Pain Scale 4-6) 02/16/17 16:45 02/23/17 16:44 02/17/17 16:23 Nitroglycerin (Ntg) 0.4 mg Every 5 Minutes PRN SL Prn Chest Pain 02/16/17 16:45 03/18/17 16:44 Ondansetron HCl (Zofran) 4 mg Q6H PRN IVP Nausea & Vomiting 02/16/17 16:45 03/18/17 16:44 Polyethylene Glycol (Miralax) 17 gm DAILYPRN PRN ORAL Constipation 02/16/17 16:45 03/18/17 16:44 Temazepam (Restoril) 15 mg HSPRN PRN ORAL Insomnia 02/16/17 16:45 02/23/17 16:44 Vancomycin HCl (Vanco rx to dose) 1 ea DAILY PRN MISC PER RX PROTOCOL 02/16/17 18:00 03/18/17 17:59 Vancomycin/Sodium Chloride 250 ml @ 166.667 mls/hr Q24H IVPB 02/17/17 17:00 02/22/17 16:59 02/17/17 16:31 Michael (Camila Johnson NP Feb 18, 2017 09:20
[2017-02-18 09:48] LABS: OTHERS PATHOLOGIST COMMENT
[2017-02-18 12:00] VITALS: BP 159/73
--- NOTE | 2017-02-18 12:41 | Infectious Diseases Prog Note ---
Assessment/Plan Assessment/Plan ASSESSMENT: 67 y/o female with: // Possible UTI - UCx :GNR x 2 // Chronic nonhealing bilateral posterior thigh ulcers ( >3yrs ) - WCx :Staph A ( Ethel. :P ) // Chronic nonhealing BLE venous stasis ulcers - WCx pending // Afebrile without leukocytosis // Renal insufficiency ?acute vs chronic // Thrombocytosis // Obesity // Homelessness // Wheelchair bound // NKDA // Full Code PLAN: - continue empiric IV vancomycin, cefepime d# 3 - f/u cultures - f/u doppler - monitor CBC, temperatures - monitor BMP - wound care - may need placement Subjective Constitutional: Denies: no symptoms, fever, chills, fatigue, anorexia, drenching sweats, other Allergies: Coded Allergies: No Known Allergies (Unverified , 02/11/17) Objective Vital Signs Last 24 Hour Vital Signs Date Time Temp Pulse Resp B/P (MAP) Pulse Ox O2 Delivery O2 Flow Rate FiO2 02/18/17 10:32 68 18 Room Air 21 02/18/17 08:00 97.0 59 18 156/84 94 Room Air 02/18/17 04:05 97.2 55 20 140/55 91 Room Air 02/17/17 23:39 96.6 67 20 146/67 98 Room Air 02/17/17 19:55 92 21 02/17/17 19:55 67 18 Room Air 21 02/17/17 16:00 97.2 67 18 143/55 92 Room Air Height (Feet): 5 Height (Inches): 4.00 Weight (Pounds): 143 HEENT: anicteric Respiratory/Chest: no respiratory distress Cardiovascular: regular rhythm Abdomen: non distended Microbiology Date/Time Source Procedure Growth Status 02/16/17 15:45 Blood Blood Culture - Preliminary NO GROWTH AFTER 24 HOURS Resulted 02/16/17 15:40 Blood Blood Culture - Preliminary NO GROWTH AFTER 24 HOURS Resulted 02/16/17 16:24 Urine,Clean Catch Urine Culture - Preliminary Gram Negative Bacillus 1 Gram Negative Bacillus 2 Resulted 02/17/17 10:08 Thigh Right Gram Stain Pending Resulted 02/17/17 10:08 Wound Culture - Preliminary Staphylococcus Aureus Resulted 02/17/17 10:08 Thigh Left Gram Stain Pending Resulted 02/17/17 10:08 Wound Culture - Preliminary Staphylococcus Aureus Resulted 02/17/17 10:08 Ankle Right Gram Stain Pending Resulted 02/17/17 10:08 Ankle Right Wound Culture - Preliminary Resulted Laboratory Tests Test 02/18/17 05:55 Sodium Level 138 MMOL/L (136-145) Potassium Level 4.5 MMOL/L (3.5-5.1) Chloride Level 103 MMOL/L (98-107) Carbon Dioxide Level 27 MMOL/L (21-32) Anion Gap 8 mmol/L (5-15) Blood Urea Nitrogen 22 mg/dL (7-18) H Creatinine 1.7 MG/DL (0.55-1.30) H Estimat Glomerular Filtration Rate 30.2 mL/min (>60) Glucose Level 84 MG/DL (74-106) Calcium Level 9.2 MG/DL (8.5-10.1) Ferritin 56 NG/ML (8-388) Current Medications Medications (Trade) Dose Ordered Sig/Luz Route PRN Reason Start Time Stop Time Status Last Admin Dose Admin Acetaminophen (Tylenol) 650 mg Q4H PRN ORAL fever 02/16/17 16:45 03/18/17 16:44 Albuterol/ Ipratropium (DuoNeb 0.5-3(2.5)mg/3ml) 3 ml Q4H PRN HHN Shortness of Breath 02/16/17 16:45 02/21/17 16:44 Cefepime HCl 2 gm/ Sodium Chloride 110 ml @ 220 mls/hr DAILY@1999 IV 02/16/17 20:00 02/23/17 19:59 02/17/17 20:24 Dextrose (Dextrose 50%) STAT PRN IV Hypoglycemia 02/16/17 16:45 03/18/17 16:44 Heparin Sodium (Porcine) (Heparin 5000 units/ml) 5,000 units EVERY 12 HOURS SUBQ 02/16/17 21:00 03/18/17 20:59 02/18/17 08:28 Morphine Sulfate (Morphine Sulfate) 2 mg Q4H PRN IVP Moderate Pain (Pain Scale 4-6) 02/16/17 16:45 02/23/17 16:44 02/17/17 16:23 Nitroglycerin (Ntg) 0.4 mg Every 5 Minutes PRN SL Prn Chest Pain 02/16/17 16:45 03/18/17 16:44 Ondansetron HCl (Zofran) 4 mg Q6H PRN IVP Nausea & Vomiting 02/16/17 16:45 03/18/17 16:44 Polyethylene Glycol (Miralax) 17 gm DAILYPRN PRN ORAL Constipation 02/16/17 16:45 03/18/17 16:44 Temazepam (Restoril) 15 mg HSPRN PRN ORAL Insomnia 02/16/17 16:45 02/23/17 16:44 Vancomycin HCl (Vanco rx to dose) 1 ea DAILY PRN MISC PER RX PROTOCOL 02/16/17 18:00 03/18/17 17:59 Vancomycin/Sodium Chloride 250 ml @ 166.667 mls/hr Q24H IVPB 02/17/17 17:00 02/22/17 16:59 02/17/17 16:31 PELON FELIX M.D. Feb 18, 2017 12:41
--- NOTE | 2017-02-18 12:48 | Wound Care Consultation ---
Wound Assessment Wound Assessment #1: Wound Present on Admission: Yes New Wound: No Status Change of Wound: No Wound Location Body Site Modif: left, upper, posterior Wound Location Body Site: thigh Wound Type: lesion-etiology unknown - scattered Karolina Test: Does not Karolina Wound Thickness: Full Thickness Wound Length: 10.0 Wound Width: 10.0 Wound Depth: 0.3 Percent of Wound [place]/Red: 50 Percent of Wound Bed Yellow/Wh: 50 Wound Drainage Description: Serosanguineous Wound Drainage Amount: Moderate Wound Drainage Odor: None/Absent Tissue Surrounding Wound: Erythemic Wound General Appearance: Reddened, Draining Wound Assessment #2: Wound Number: 2 Wound Present on Admission: Yes New Wound: No Status Change of Wound: No Wound Location Body Site Modif: right, upper, posterior Wound Location Body Site: thigh Wound Type: lesion-etiology unknown Karolina Test: Does not Karolina Wound Thickness: Full Thickness Wound Length: 7.0 Wound Width: 6.0 Wound Depth: 0.3 Percent of Wound [place]/Red: 100 Wound Drainage Description: Serosanguineous Wound Drainage Amount: Moderate Wound Drainage Odor: None/Absent Tissue Surrounding Wound: Erythemic Wound General Appearance: Reddened, Draining Wound Assessment #3: Wound Number: 3 Wound Present on Admission: Yes New Wound: No Status Change of Wound: No Wound Location Body Site Modif: left, right, lower Wound Location Body Site: leg Wound Type: vascular issue w/vascular changes Karolina Test: Does not Karolina Wound Thickness: Full Thickness Percent of Wound [place]/Red: 80 Percent of Wound Bed Yellow/Wh: 20 Wound Drainage Description: Serosanguineous Wound Drainage Amount: Moderate Wound Drainage Odor: None/Absent Tissue Surrounding Wound: Erythemic Wound General Appearance: Reddened, Draining Wound Assessment #4: Wound Number: 4 Wound Present on Admission: Yes New Wound: No Status Change of Wound: No Wound Location Body Site Modif: mid Wound Location Body Site: other - sacrococcgeal that extended to left and right buttock Wound Type: pressure ulcer Karolina Test: Does not Karolina Pressure Ulcer Stage: Unstageable Wound Thickness: Full Thickness Wound Length: 10.0 Wound Width: 3.0 Wound Depth: utd Percent of Wound Bed Yellow/Wh: 100 Wound Drainage Description: Serosanguineous Wound Drainage Amount: Moderate Wound Drainage Odor: None/Absent Tissue Surrounding Wound: Macerated Wound General Appearance: Draining, Necrotic Wound Comment #1 Left upper posterior thigh scattered full thickness open wound, etiology unknown #2 Right upper posterior thigh open full thickness open wound, etiology unknown #3 Left and right lower legs with scattered full thickness open venous stasis ulcer #4 Sacrococcygeal unstageable pressure ulcer Recommendation -Left upper posterior thigh scattered full thickness open wound, etiology unknown and Right upper posterior thigh full thickness open wound, etiology unknown Cleanse with saline pat dry apply Xeroform gauze cover with bordered gauze daily and PRN soiled/dislodged -Sacrococcygeal unstageable pressure ulcer Cleanse with saline, pat dry, apply Triad cream on surrounding area, apply Therahoney gel on wound bed cover with bordered gauze daily and PRN soiled/ dislodged -Left and right lower legs with scattered full thickness open venous stasis ulcer, Cleanse with saline, pat dry, apply Xeroform gauze, cover with 4x4 secure with Kerlix and tape daily and PRN soiled/dislodged -Keep clean and dry -Optimize nutrition -Turn and reposition -Low air loss mattress -Offload both heels -Heel protector on both heels -Assess and f/u accordingly for any changes YAMILETH CHARLTON RN Feb 18, 2017 12:48
[2017-02-18 16:00] VITALS: BP 147/71
--- NOTE | 2017-02-18 16:25 | Diagnostic Imaging Report ---
Indication: Abnormal renal function tests Technique: Grayscale and duplex images of the kidneys, retroperitoneum, and bladder were obtained. Comparison:None Findings: Right kidney measures 10.9 cm in length. Left kidney measures 1.7 cm in length. Both kidneys demonstrate normal echogenicity. No hydronephrosis. No focal abnormality. Normal inferior vena cava. Bladder is normal. There is incidental finding of a gallstone within the gallbladder Impression: negative for hydronephrosis or other significant renal pathology Incidental finding of cholelithiasis.
--- NOTE | 2017-02-18 16:42 | Consultation ---
Consult Note Consult Note asked to eval for rising CR 1.4 to 1.7 Assessment/Plan UTI Bilateral posterior thigh chronic nonhealing ulcers Venous stasis ulcers, bilateral, chronic, nonhealing ARF on CKD Obesity homeless anemia w/chair bound Plan; Monitor renal parameters- Add Norvasc for better BP control. Avoid nephrotoxics EFRA BRODY Feb 18, 2017 16:42
[2017-02-18] MEDS: Vancomycin 750mg/NS 250ml IVPB SCH (17:24)
[2017-02-18 20:35] VITALS: BP 159/74
[2017-02-18] MEDS: Cefepime HCl 2 GM in NS 110 ML IV SCH (21:34)
[2017-02-18] MEDS ORDERED: NS 500ML IV ONE (21:47)
[2017-02-18] MEDS ORDERED: Tubing IV Secondary IV ONE (21:47)
[2017-02-19 04:07] VITALS: BP 144/72
[2017-02-19 07:56] LABS: BASOPHILS % (AUTO) 1.4 % (0.0-2.0); EOSINOPHILS % (AUTO) 9.8 % (0.0-3.0); LYMPHOCYTES % (AUTO) 28.5 % (20.0-45.0); MEAN CORPUSCULAR HEMOGLOBIN 27.6 PG (27.0-31.0); MEAN CORPUSCULAR HGB CONC 31.2 G/DL (32.0-36.0); MEAN CORPUSCULAR VOLUME 89 FL (80-99); MONOCYTES % (AUTO) 5.7 % (1.0-10.0); NEUTROPHILS % (AUTO) 54.6 % (45.0-75.0); PLATELET COUNT 496 K/UL (150-450); RED CELL DISTRIBUTION WIDTH 18.4 % (11.6-14.8); WHITE BLOOD COUNT 6.9 K/UL (4.8-10.8)
[2017-02-19 08:00] VITALS: BP 167/59
[2017-02-19 08:23] LABS: ANION GAP 7 mmol/L (5-15); CALCIUM 9.5 MG/DL (8.5-10.1); CARBON DIOXIDE 27 MMOL/L (21-32); CHLORIDE 102 MMOL/L (98-107); CREATININE 1.5 MG/DL (0.55-1.30); FERRITIN 49 NG/ML (8-388); GLOMERULAR FILTRATION RATE 34.9 mL/min (>60); POTASSIUM 4.4 MMOL/L (3.5-5.1); SODIUM 136 MMOL/L (136-145)
[2017-02-19] MEDS: Heparin 5000 units/ml inj SUBQ SCH ×2 (08:24→22:26)
--- NOTE | 2017-02-19 08:31 | Pulmonology Progress Note ---
Assessment/Plan Assessment/Plan ASSESSMENT UTI Bilateral posterior thigh chronic nonhealing ulcers Venous stasis ulcers, bilateral, chronic, nonhealing ARF on CKD HTN urgency Obesity homeless anemia w/chair bound PLAN OF CARE [facility] floor Abx fup with cx urine cx + GNB 2 dif species, blood cx preliminary negative , wound cx + MRSA ID follows Venous Duplex BLE wound care nurse eval wound care as per wound nurse recommendations Renal US no hydro, normal echogenicity bilaterally monitor renal parameters, lytes, avoid nephrotoxics nephro eval appreciated started by nephro on low dose CCB, BP still elevated, will increase dose and add Clonidine prn random vanco level ok Pain management DVT prophylaxis bowel regimen SS eval for placement PT/OT eval Anemia w/up noted, monitor counts, transfuse prn case discussed and evaluated by supervising physician Subjective Allergies: Coded Allergies: No Known Allergies (Unverified , 02/11/17) Subjective afebrile, no leukocytosis on abx seen and evaluated by ID specialist and wound care nurse creat worse-1.7 BP elevated Objective Last 24 Hour Vital Signs Date Time Temp Pulse Resp B/P (MAP) Pulse Ox O2 Delivery O2 Flow Rate FiO2 02/19/17 08:25 59 167/59 02/19/17 04:07 97.8 74 19 144/72 Room Air 02/18/17 20:35 98.6 62 19 159/74 98 Room Air 02/18/17 20:19 Nasal Cannula 2.0 28 02/18/17 20:17 60 18 Nasal Cannula 2.0 28 02/18/17 17:24 61 147/71 02/18/17 16:00 98.1 61 19 147/71 98 Room Air 02/18/17 12:00 97.3 72 19 159/73 97 Room Air 02/18/17 10:32 68 18 Room Air 21 Objective General Appearance: no acute distress, awake, alert, female w/chair bound HEENT: normocephalic, atraumatic, anicteric, mucous membranes moist, PERRL Respiratory/Chest: chest wall non-tender, normal breath sounds Cardiovascular: normal rate, regular rhythm, no JVD Abdomen: normal bowel sounds, soft, non tender - obese Extremities: no edema Skin: other - chronic venous stasis ulcers and posterior thigh ulcers Neurologic/Psychiatric: w/c bound , alert, responsive Musculoskeletal: atrophy BLE Microbiology Date/Time Source Procedure Growth Status 02/16/17 15:45 Blood Blood Culture - Preliminary NO GROWTH AFTER 48 HOURS Resulted 02/16/17 15:40 Blood Blood Culture - Preliminary NO GROWTH AFTER 48 HOURS Resulted 02/16/17 18:16 Nasal Nares MRSA Culture - Final NO METHICILLIN RESISTANT STAPH AUREUS... Complete 02/16/17 16:24 Urine,Clean Catch Urine Culture - Final Proteus Mirabilis Escherichia Coli Complete 02/17/17 10:08 Thigh Right Gram Stain - Final Resulted 02/17/17 10:08 Wound Culture - Preliminary Staphylococcus Aureus Resulted 02/17/17 10:08 Thigh Left Gram Stain - Final Resulted 02/17/17 10:08 Wound Culture - Preliminary Staphylococcus Aureus Resulted 02/17/17 10:08 Ankle Right Gram Stain - Final Resulted 02/17/17 10:08 Ankle Right Wound Culture - Preliminary Resulted 02/16/17 18:16 Rectum VRE Culture - Final NO VANCOMYCIN RESISTANT ENTEROCOCCUS ... Complete Laboratory Tests 02/18/17 15:00: Random Vancomycin Level 8.9 02/19/17 06:15: White Blood Count 6.9, Red Blood Count 3.50L, Hemoglobin 9.7L, Hematocrit 31.0L , Mean Corpuscular Volume 89, Mean Corpuscular Hemoglobin 27.6, Mean Corpuscular Hemoglobin Concent 31.2L, Red Cell Distribution Width 18.4H, Platelet Count 496H, Mean Platelet Volume 5.0L, Neutrophils (%) (Auto) 54.6, Lymphocytes (%) (Auto) 28.5, Monocytes (%) (Auto) 5.7, Eosinophils (%) (Auto) 9.8H, Basophils (%) (Auto) 1.4, Sodium Level 136, Potassium Level 4.4, Chloride Level 102, Carbon Dioxide Level 27, Anion Gap 7, Blood Urea Nitrogen 24H, Creatinine 1.5H, Estimat Glomerular Filtration Rate 34.9, Glucose Level 91, Hemoglobin A1c [Pending], Calcium Level 9.5, Phosphorus Level [Pending], Magnesium Level [Pending], Ferritin 49, Total Bilirubin [Pending], Direct Bilirubin [Pending], Aspartate Amino Transf (AST/SGOT) [Pending], Alanine Aminotransferase (ALT/SGPT) [Pending], Alkaline Phosphatase [Pending], C- Reactive Protein, Quantitative [Pending], Pro-B-Type Natriuretic Peptide [ Pending], Total Protein [Pending], Albumin [Pending] Current Medications Medications (Trade) Dose Ordered Sig/Luz Route PRN Reason Start Time Stop Time Status Last Admin Dose Admin Acetaminophen (Tylenol) 650 mg Q4H PRN ORAL fever 02/16/17 16:45 03/18/17 16:44 Albuterol/ Ipratropium (DuoNeb 0.5-3(2.5)mg/3ml) 3 ml Q4H PRN HHN Shortness of Breath 02/16/17 16:45 02/21/17 16:44 Amlodipine Besylate (Norvasc) 2.5 mg DAILY ORAL 02/18/17 17:30 03/20/17 17:29 02/19/17 08:25 Cefepime HCl 2 gm/ Sodium Chloride 110 ml @ 220 mls/hr DAILY@2000 IV 02/16/17 20:00 02/23/17 19:59 02/18/17 21:34 Dextrose (Dextrose 50%) STAT PRN IV Hypoglycemia 02/16/17 16:45 03/18/17 16:44 Heparin Sodium (Porcine) (Heparin 5000 units/ml) 5,000 units EVERY 12 HOURS SUBQ 02/16/17 21:00 03/18/17 20:59 02/19/17 08:24 Morphine Sulfate (Morphine Sulfate) 2 mg Q4H PRN IVP Moderate Pain (Pain Scale 4-6) 02/16/17 16:45 02/23/17 16:44 02/17/17 16:23 Nitroglycerin (Ntg) 0.4 mg Every 5 Minutes PRN SL Prn Chest Pain 02/16/17 16:45 03/18/17 16:44 Ondansetron HCl (Zofran) 4 mg Q6H PRN IVP Nausea & Vomiting 02/16/17 16:45 03/18/17 16:44 Polyethylene Glycol (Miralax) 17 gm DAILYPRN PRN ORAL Constipation 02/16/17 16:45 03/18/17 16:44 Temazepam (Restoril) 15 mg HSPRN PRN ORAL Insomnia 02/16/17 16:45 02/23/17 16:44 Vancomycin HCl (Vanco rx to dose) 1 ea DAILY PRN MISC PER RX PROTOCOL 02/16/17 18:00 03/18/17 17:59 Vancomycin/Sodium Chloride 250 ml @ 166.667 mls/hr Q24H IVPB 02/17/17 17:00 02/22/17 16:59 02/18/17 17:24 Camila Rodriguez NP ([facility]anchtein) Feb 19, 2017 08:31
[2017-02-19 09:44] LABS: ALANINE AMINOTRANSFERASE 10 U/L (12-78); ASPARTATE AMINO TRANSFERASE 16 U/L (15-37); CRP QUANT 2.4 mg/dL (0.00-0.90); PHOSPHORUS 3.3 MG/DL (2.5-4.9); TOTAL PROTEIN 7.5 G/DL (6.4-8.2)
[2017-02-19] MEDS ORDERED: Albuterol/Ipratropium 3ml neb HHN PRN (11:00)
[2017-02-19 11:09] LABS: BILIRUBIN,DIRECT < 0.1 MG/DL (0.0-0.3)
[2017-02-19 12:42] VITALS: BP 143/56
--- NOTE | 2017-02-19 13:34 | Infectious Diseases Prog Note ---
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 Acute renal failure, CKD Anemia Wheelchair bound P: Continue Vancomycin Change Cefepime to Cipro Subjective ROS Limited/Unobtainable: No Constitutional: Reports: no symptoms Respiratory: Reports: no symptoms Gastrointestinal/Abdominal: Reports: no symptoms Musculoskeletal: Reports: pain, other - in posterior legs Allergies: Coded Allergies: No Known Allergies (Unverified , 02/11/17) Objective Vital Signs Last 24 Hour Vital Signs Date Time Temp Pulse Resp B/P (MAP) Pulse Ox O2 Delivery O2 Flow Rate FiO2 02/19/17 12:42 97.5 60 16 143/56 98 Room Air 02/19/17 08:34 60 20 Room Air 21 02/19/17 08:34 Room Air 21 02/19/17 08:25 59 167/59 02/19/17 08:00 97.7 59 18 167/59 99 Room Air 02/19/17 04:07 97.8 74 19 144/72 Room Air 02/18/17 20:35 98.6 62 19 159/74 98 Room Air 02/18/17 20:19 Nasal Cannula 2.0 28 02/18/17 20:17 60 18 Nasal Cannula 2.0 28 02/18/17 17:24 61 147/71 02/18/17 16:00 98.1 61 19 147/71 98 Room Air Height (Feet): 5 Height (Inches): 4.00 Weight (Pounds): 143 General Appearance: no acute distress HEENT: mucous membranes moist Respiratory/Chest: lungs clear Cardiovascular: normal rate Abdomen: soft, non tender Extremities: no edema Skin: ulcers, other - iin posterior legs Neurologic/Psychiatric: alert, oriented x 3, responsive Microbiology Date/Time Source Procedure Growth Status 02/16/17 15:45 Blood Blood Culture - Preliminary NO GROWTH AFTER 48 HOURS Resulted 02/16/17 15:40 Blood Blood Culture - Preliminary NO GROWTH AFTER 48 HOURS Resulted 02/16/17 18:16 Nasal Nares MRSA Culture - Final NO METHICILLIN RESISTANT STAPH AUREUS... Complete 02/16/17 16:24 Urine,Clean Catch Urine Culture - Final Proteus Mirabilis Escherichia Coli Complete 02/17/17 10:08 Thigh Right Gram Stain - Final Resulted 02/17/17 10:08 Wound Culture - Preliminary Staphylococcus Aureus - Mrsa Diphtheroids Resulted 02/17/17 10:08 Thigh Left Gram Stain - Final Resulted 02/17/17 10:08 Wound Culture - Preliminary Staphylococcus Aureus - Mrsa Diphtheroids Resulted 02/17/17 10:08 Ankle Right Gram Stain - Final Resulted 02/17/17 10:08 Wound Culture - Preliminary Gram Negative Bacillus 1 Staphylococcus Aureus Resulted 02/16/17 18:16 Rectum VRE Culture - Final NO VANCOMYCIN RESISTANT ENTEROCOCCUS ... Complete Laboratory Tests Test 02/18/17 15:00 02/19/17 06:15 Random Vancomycin Level 8.9 ug/mL White Blood Count 6.9 K/UL (4.8-10.8) Red Blood Count 3.50 M/UL (4.20-5.40) L Hemoglobin 9.7 G/DL (12.0-16.0) L Hematocrit 31.0 % (37.0-47.0) L Mean Corpuscular Volume 89 FL (80-99) Mean Corpuscular Hemoglobin 27.6 PG (27.0-31.0) Mean Corpuscular Hemoglobin Concent 31.2 G/DL (32.0-36.0) L Red Cell Distribution Width 18.4 % (11.6-14.8) H Platelet Count 496 K/UL (150-450) H Mean Platelet Volume 5.0 FL (6.5-10.1) L Neutrophils (%) (Auto) 54.6 % (45.0-75.0) Lymphocytes (%) (Auto) 28.5 % (20.0-45.0) Monocytes (%) (Auto) 5.7 % (1.0-10.0) Eosinophils (%) (Auto) 9.8 % (0.0-3.0) H Basophils (%) (Auto) 1.4 % (0.0-2.0) Sodium Level 136 MMOL/L (136-145) Potassium Level 4.4 MMOL/L (3.5-5.1) Chloride Level 102 MMOL/L (98-107) Carbon Dioxide Level 27 MMOL/L (21-32) Anion Gap 7 mmol/L (5-15) Blood Urea Nitrogen 24 mg/dL (7-18) H Creatinine 1.5 MG/DL (0.55-1.30) H Estimat Glomerular Filtration Rate 34.9 mL/min (>60) Glucose Level 91 MG/DL (74-106) Hemoglobin A1c 7.0 % (4.3-6.0) H Calcium Level 9.5 MG/DL (8.5-10.1) Phosphorus Level 3.3 MG/DL (2.5-4.9) Magnesium Level 2.0 MG/DL (1.8-2.4) Ferritin 49 NG/ML (8-388) Total Bilirubin 0.2 MG/DL (0.2-1.0) Direct Bilirubin < 0.1 MG/DL (0.0-0.3) Aspartate Amino Transf (AST/SGOT) 16 U/L (15-37) Alanine Aminotransferase (ALT/SGPT) 10 U/L (12-78) L Alkaline Phosphatase 81 U/L (46-116) C-Reactive Protein, Quantitative 2.4 mg/dL (0.00-0.90) H Pro-B-Type Natriuretic Peptide 604 pg/mL (0-125) H Total Protein 7.5 G/DL (6.4-8.2) Albumin 2.9 G/DL (3.4-5.0) L Current Medications Medications (Trade) Dose Ordered Sig/Luz Route PRN Reason Start Time Stop Time Status Last Admin Dose Admin Acetaminophen (Tylenol) 650 mg Q4H PRN ORAL fever 02/16/17 16:45 03/18/17 16:44 Albuterol/ Ipratropium (DuoNeb 0.5-3(2.5)mg/3ml) 3 ml Q4H PRN HHN Shortness of Breath 02/19/17 11:00 02/24/17 10:59 Amlodipine Besylate (Norvasc) 5 mg DAILY ORAL 02/20/17 09:00 03/22/17 08:59 Cefepime HCl 2 gm/ Sodium Chloride 110 ml @ 220 mls/hr DAILY@1999 IV 02/16/17 20:00 02/23/17 19:59 02/18/17 21:34 Clonidine HCl (Catapres) 0.1 mg Q6H PRN ORAL sbp above 160 02/19/17 10:45 03/21/17 10:44 Dextrose (Dextrose 50%) STAT PRN IV Hypoglycemia 02/16/17 16:45 03/18/17 16:44 Heparin Sodium (Porcine) (Heparin 5000 units/ml) 5,000 units EVERY 12 HOURS SUBQ 02/16/17 21:00 03/18/17 20:59 02/19/17 08:24 Morphine Sulfate (Morphine Sulfate) 2 mg Q4H PRN IVP Moderate Pain (Pain Scale 4-6) 02/16/17 16:45 02/23/17 16:44 02/17/17 16:23 Nitroglycerin (Ntg) 0.4 mg Every 5 Minutes PRN SL Prn Chest Pain 02/16/17 16:45 03/18/17 16:44 Ondansetron HCl (Zofran) 4 mg Q6H PRN IVP Nausea & Vomiting 02/16/17 16:45 03/18/17 16:44 Polyethylene Glycol (Miralax) 17 gm DAILYPRN PRN ORAL Constipation 02/16/17 16:45 03/18/17 16:44 Temazepam (Restoril) 15 mg HSPRN PRN ORAL Insomnia 02/16/17 16:45 02/23/17 16:44 Vancomycin HCl (Vanco rx to dose) 1 ea DAILY PRN MISC PER RX PROTOCOL 02/16/17 18:00 03/18/17 17:59 Vancomycin/Sodium Chloride 250 ml @ 166.667 mls/hr Q24H IVPB 02/17/17 17:00 02/22/17 16:59 02/18/17 17:24 RANI WHATLEY Feb 19, 2017 13:34
--- NOTE | 2017-02-19 13:59 | General Progress Note ---
Assessment/Plan Status: stable - from renal stand Status Narrative Cr down 1.5 Assessment/Plan UTI Bilateral posterior thigh chronic nonhealing ulcers Venous stasis ulcers, bilateral, chronic, nonhealing ARF on CKD Obesity homeless anemia w/chair bound Plan; Monitor renal parameters- Add Norvasc for better BP control. adjust dose Avoid nephrotoxics Iron and B12 and gastric support Subjective ROS Limited/Unobtainable: No Constitutional: Reports: malaise Allergies: Coded Allergies: No Known Allergies (Unverified , 02/11/17) Objective Last 24 Hour Vital Signs Date Time Temp Pulse Resp B/P (MAP) Pulse Ox O2 Delivery O2 Flow Rate FiO2 02/19/17 12:42 97.5 60 16 143/56 98 Room Air 02/19/17 08:34 60 20 Room Air 21 02/19/17 08:34 Room Air 21 02/19/17 08:25 59 167/59 02/19/17 08:00 97.7 59 18 167/59 99 Room Air 02/19/17 04:07 97.8 74 19 144/72 Room Air 02/18/17 20:35 98.6 62 19 159/74 98 Room Air 02/18/17 20:19 Nasal Cannula 2.0 28 02/18/17 20:17 60 18 Nasal Cannula 2.0 28 02/18/17 17:24 61 147/71 02/18/17 16:00 98.1 61 19 147/71 98 Room Air Laboratory Tests 02/18/17 15:00: Random Vancomycin Level 8.9 02/19/17 06:15: White Blood Count 6.9, Red Blood Count 3.50L, Hemoglobin 9.7L, Hematocrit 31.0L , Mean Corpuscular Volume 89, Mean Corpuscular Hemoglobin 27.6, Mean Corpuscular Hemoglobin Concent 31.2L, Red Cell Distribution Width 18.4H, Platelet Count 496H, Mean Platelet Volume 5.0L, Neutrophils (%) (Auto) 54.6, Lymphocytes (%) (Auto) 28.5, Monocytes (%) (Auto) 5.7, Eosinophils (%) (Auto) 9.8H, Basophils (%) (Auto) 1.4, Sodium Level 136, Potassium Level 4.4, Chloride Level 102, Carbon Dioxide Level 27, Anion Gap 7, Blood Urea Nitrogen 24H, Creatinine 1.5H, Estimat Glomerular Filtration Rate 34.9, Glucose Level 91, Hemoglobin A1c 7.0H, Calcium Level 9.5, Phosphorus Level 3.3, Magnesium Level 2.0, Ferritin 49, Total Bilirubin 0.2, Direct Bilirubin < 0.1, Aspartate Amino Transf (AST/SGOT) 16, Alanine Aminotransferase (ALT/SGPT) 10L, Alkaline Phosphatase 81, C-Reactive Protein, Quantitative 2.4H, Pro-B-Type Natriuretic Peptide 604H, Total Protein 7.5, Albumin 2.9L Height (Feet): 5 Height (Inches): 4.00 Weight (Pounds): 143 General Appearance: no apparent distress Objective PE not changed EFRA BRODY Feb 19, 2017 13:59
[2017-02-19] MEDS: Vitamin D 50,000 units cap ORAL SCH (15:48)
[2017-02-19] MEDS: Vitamin B12 1000mcg/ml Inj SUBQ SCH (15:48)
[2017-02-19 16:00] VITALS: BP 139/60
[2017-02-19] MEDS ORDERED: Iron Sucrose 200 MG in NS 110 ML IV ONE (16:00)
[2017-02-19] MEDS: Vancomycin 750mg/NS 250ml IVPB SCH (17:00)
[2017-02-19] MEDS: Vancomycin 1250mg/D5W 250ml 250 ML IVPB SCH (18:36)
[2017-02-19 20:00] VITALS: BP 143/68
[2017-02-20] VITALS: BP 114/61
[2017-02-20 04:00] VITALS: BP 145/62
[2017-02-20 08:12] VITALS: BP 154/71
[2017-02-20 08:20] LABS: BASOPHILS % (AUTO) 1.7 % (0.0-2.0); EOSINOPHILS % (AUTO) 9.1 % (0.0-3.0); LYMPHOCYTES % (AUTO) 26.9 % (20.0-45.0); MEAN CORPUSCULAR HGB CONC 30.7 G/DL (32.0-36.0); MEAN CORPUSCULAR VOLUME 88 FL (80-99); MEAN PLATELET VOLUME 4.9 FL (6.5-10.1); MONOCYTES % (AUTO) 5.1 % (1.0-10.0); NEUTROPHILS % (AUTO) 57.3 % (45.0-75.0); PLATELET COUNT 569 K/UL (150-450); RED BLOOD COUNT 4.01 M/UL (4.20-5.40); RED CELL DISTRIBUTION WIDTH 18.7 % (11.6-14.8); WHITE BLOOD COUNT 6.5 K/UL (4.8-10.8)
--- NOTE | 2017-02-20 08:46 | Pulmonology Progress Note ---
Assessment/Plan Assessment/Plan ASSESSMENT UTI Bilateral posterior thigh chronic nonhealing ulcers Venous stasis ulcers, bilateral, chronic, nonhealing ARF on CKD HTN urgency Obesity homeless anemia w/chair bound PLAN OF CARE [facility] floor Abx fup with cx urine cx + GNB 2 dif species, blood cx preliminary negative , wound cx + MRSA ID follows Venous Duplex BLE wound care nurse eval wound care as per wound nurse recommendations Renal US no hydro, normal echogenicity bilaterally monitor renal parameters, lytes, avoid nephrotoxics creat trending down nephro eval appreciated started by nephro on low dose CCB, BP still elevated, will increase dose and add Clonidine prn random vanco level ok Pain management DVT prophylaxis bowel regimen SS eval for placement PT/OT eval Anemia w/up noted, monitor counts, transfuse prn dc plan, will need ID recommendation re further treatment, will benefit from SNF for wound care and IV abx if insurance allowed case discussed and evaluated by supervising physician Subjective Allergies: Coded Allergies: No Known Allergies (Unverified , 02/11/17) Subjective afebrile, no leukocytosis on abx seen and evaluated by ID specialist and wound care nurse BP better chemistry pending Objective Last 24 Hour Vital Signs Date Time Temp Pulse Resp B/P (MAP) Pulse Ox O2 Delivery O2 Flow Rate FiO2 02/20/17 08:12 97.2 58 18 154/71 94 Room Air 02/20/17 08:09 67 16 Room Air 02/20/17 08:09 Room Air 02/20/17 04:00 97.1 61 18 145/62 96 Room Air 02/20/17 00:00 97.3 61 18 114/61 96 Room Air 02/19/17 20:00 97.5 65 18 143/68 96 Room Air 02/19/17 18:35 60 139/60 02/19/17 16:00 97.2 60 18 139/60 99 Room Air 02/19/17 12:42 97.5 60 16 143/56 98 Room Air Objective General Appearance: no acute distress, awake, alert, female w/chair bound HEENT: normocephalic, atraumatic, anicteric, mucous membranes moist, PERRL Respiratory/Chest: chest wall non-tender, normal breath sounds Cardiovascular: normal rate, regular rhythm, no JVD Abdomen: normal bowel sounds, soft, non tender - obese Extremities: no edema Skin: other - chronic venous stasis ulcers and posterior thigh ulcers Neurologic/Psychiatric: w/c bound , alert, responsive Musculoskeletal: atrophy BLE Microbiology Date/Time Source Procedure Growth Status 02/17/17 10:08 Thigh Right Gram Stain - Final Resulted 02/17/17 10:08 Wound Culture - Preliminary Staphylococcus Aureus - Mrsa Diphtheroids Resulted 02/17/17 10:08 Thigh Left Gram Stain - Final Resulted 02/17/17 10:08 Wound Culture - Preliminary Staphylococcus Aureus - Mrsa Diphtheroids Resulted 02/17/17 10:08 Ankle Right Gram Stain - Final Resulted 02/17/17 10:08 Wound Culture - Preliminary Gram Negative Bacillus 1 Staphylococcus Aureus Resulted Laboratory Tests 02/19/17 16:15: Vancomycin Level Trough 5.1 02/20/17 07:45: White Blood Count 6.5, Red Blood Count 4.01L, Hemoglobin 10.8L, Hematocrit 35.4L , Mean Corpuscular Volume 88, Mean Corpuscular Hemoglobin 27.0, Mean Corpuscular Hemoglobin Concent 30.7L, Red Cell Distribution Width 18.7H, Platelet Count 569H, Mean Platelet Volume 4.9L, Neutrophils (%) (Auto) 57.3, Lymphocytes (%) (Auto) 26.9, Monocytes (%) (Auto) 5.1, Eosinophils (%) (Auto) 9.1H, Basophils (%) (Auto) 1.7, Sodium Level [Pending], Potassium Level [Pending ], Chloride Level [Pending], Carbon Dioxide Level [Pending], Blood Urea Nitrogen [Pending], Creatinine [Pending], Estimat Glomerular Filtration Rate [ Pending], Glucose Level [Pending], Calcium Level [Pending] Current Medications Medications (Trade) Dose Ordered Sig/Luz Route PRN Reason Start Time Stop Time Status Last Admin Dose Admin Acetaminophen (Tylenol) 650 mg Q4H PRN ORAL fever 02/16/17 16:45 03/18/17 16:44 Albuterol/ Ipratropium (DuoNeb 0.5-3(2.5)mg/3ml) 3 ml Q4H PRN HHN Shortness of Breath 02/19/17 11:00 02/24/17 10:59 Amlodipine Besylate (Norvasc) 5 mg BID ORAL 02/19/17 18:00 03/22/17 08:59 02/19/17 18:35 Ciprofloxacin (Cipro 250mg tab) 250 mg EVERY 12 HOURS ORAL 02/19/17 21:00 02/26/17 20:59 02/19/17 22:21 Clonidine HCl (Catapres) 0.1 mg Q6H PRN ORAL sbp above 160 02/19/17 10:45 03/21/17 10:44 Cyanocobalamin (Vitamin B12) 1,000 mcg DAILY SUBQ 02/19/17 16:00 02/21/17 09:01 02/19/17 15:48 Dextrose (Dextrose 50%) STAT PRN IV Hypoglycemia 02/16/17 16:45 03/18/17 16:44 Ergocalciferol (Drisdol) 50,000 intlu QWEEK ORAL 02/19/17 15:00 03/21/17 14:59 02/19/17 15:48 Folic Acid (Folate) 2 mg DAILY ORAL 02/19/17 15:00 03/21/17 14:59 02/19/17 15:47 Heparin Sodium (Porcine) (Heparin 5000 units/ml) 5,000 units EVERY 12 HOURS SUBQ 02/16/17 21:00 03/18/17 20:59 02/19/17 22:26 Lansoprazole (Prevacid) 30 mg DAILY ORAL 02/19/17 15:00 03/21/17 14:59 02/20/17 07:47 Morphine Sulfate (Morphine Sulfate) 2 mg Q4H PRN IVP Moderate Pain (Pain Scale 4-6) 02/16/17 16:45 02/23/17 16:44 02/17/17 16:23 Nitroglycerin (Ntg) 0.4 mg Every 5 Minutes PRN SL Prn Chest Pain 02/16/17 16:45 03/18/17 16:44 Ondansetron HCl (Zofran) 4 mg Q6H PRN IVP Nausea & Vomiting 02/16/17 16:45 03/18/17 16:44 Polyethylene Glycol (Miralax) 17 gm DAILYPRN PRN ORAL Constipation 02/16/17 16:45 03/18/17 16:44 Temazepam (Restoril) 15 mg HSPRN PRN ORAL Insomnia 02/16/17 16:45 02/23/17 16:44 Vancomycin HCl (Vanco rx to dose) 1 ea DAILY PRN MISC PER RX PROTOCOL 02/16/17 18:00 03/18/17 17:59 Vancomycin HCl/ Dextrose 250 ml @ 166.667 mls/hr Q24H IVPB 02/19/17 18:00 02/24/17 17:59 02/19/17 18:36 Michael (Teresa)Camila NP Feb 20, 2017 08:46
[2017-02-20] MEDS: Vitamin B12 1000mcg/ml Inj SUBQ SCH (09:03)
[2017-02-20] MEDS: Heparin 5000 units/ml inj SUBQ SCH ×2 (09:04→21:00)
[2017-02-20 09:13] LABS: ANION GAP 10 mmol/L (5-15); CALCIUM 10.1 MG/DL (8.5-10.1); CARBON DIOXIDE 28 MMOL/L (21-32); CHLORIDE 100 MMOL/L (98-107); CREATININE 1.4 MG/DL (0.55-1.30); GLOMERULAR FILTRATION RATE 37.8 mL/min (>60); POTASSIUM 4.4 MMOL/L (3.5-5.1); SODIUM 138 MMOL/L (136-145)
--- NOTE | 2017-02-20 10:55 | Infectious Diseases Prog Note ---
Assessment/Plan Assessment/Plan A; UTI Cellulitis of legs/ purulent with MRSA MRSA carrier Acute renal failure, CKD Anemia Wheelchair bound P: Continue Vancomycin & Cipro Subjective ROS Limited/Unobtainable: Yes Allergies: Coded Allergies: No Known Allergies (Unverified , 02/11/17) Objective Vital Signs Last 24 Hour Vital Signs Date Time Temp Pulse Resp B/P (MAP) Pulse Ox O2 Delivery O2 Flow Rate FiO2 02/20/17 09:03 58 154/71 02/20/17 08:12 97.2 58 18 154/71 94 Room Air 02/20/17 08:09 67 16 Room Air 21 02/20/17 08:09 Room Air 21 02/20/17 04:00 97.1 61 18 145/62 96 Room Air 02/20/17 00:00 97.3 61 18 114/61 96 Room Air 02/19/17 20:00 97.5 65 18 143/68 96 Room Air 02/19/17 18:35 60 139/60 02/19/17 16:00 97.2 60 18 139/60 99 Room Air 02/19/17 12:42 97.5 60 16 143/56 98 Room Air Height (Feet): 5 Height (Inches): 4.00 Weight (Pounds): 143 General Appearance: no acute distress HEENT: mucous membranes moist Respiratory/Chest: lungs clear Cardiovascular: normal rate Abdomen: soft, non tender Extremities: no edema Skin: ulcers, other - erythema in posterior legs Neurologic/Psychiatric: other - sleeping Laboratory Tests Test 02/19/17 16:15 02/20/17 07:45 Vancomycin Level Trough 5.1 ug/mL (5.0-12.0) White Blood Count 6.5 K/UL (4.8-10.8) Red Blood Count 4.01 M/UL (4.20-5.40) L Hemoglobin 10.8 G/DL (12.0-16.0) L Hematocrit 35.4 % (37.0-47.0) L Mean Corpuscular Volume 88 FL (80-99) Mean Corpuscular Hemoglobin 27.0 PG (27.0-31.0) Mean Corpuscular Hemoglobin Concent 30.7 G/DL (32.0-36.0) L Red Cell Distribution Width 18.7 % (11.6-14.8) H Platelet Count 569 K/UL (150-450) H Mean Platelet Volume 4.9 FL (6.5-10.1) L Neutrophils (%) (Auto) 57.3 % (45.0-75.0) Lymphocytes (%) (Auto) 26.9 % (20.0-45.0) Monocytes (%) (Auto) 5.1 % (1.0-10.0) Eosinophils (%) (Auto) 9.1 % (0.0-3.0) H Basophils (%) (Auto) 1.7 % (0.0-2.0) Sodium Level 138 MMOL/L (136-145) Potassium Level 4.4 MMOL/L (3.5-5.1) Chloride Level 100 MMOL/L (98-107) Carbon Dioxide Level 28 MMOL/L (21-32) Anion Gap 10 mmol/L (5-15) Blood Urea Nitrogen 22 mg/dL (7-18) H Creatinine 1.4 MG/DL (0.55-1.30) H Estimat Glomerular Filtration Rate 37.8 mL/min (>60) Glucose Level 103 MG/DL (74-106) Calcium Level 10.1 MG/DL (8.5-10.1) Current Medications Medications (Trade) Dose Ordered Sig/Luz Route PRN Reason Start Time Stop Time Status Last Admin Dose Admin Acetaminophen (Tylenol) 650 mg Q4H PRN ORAL fever 02/16/17 16:45 03/18/17 16:44 Albuterol/ Ipratropium (DuoNeb 0.5-3(2.5)mg/3ml) 3 ml Q4H PRN HHN Shortness of Breath 02/19/17 11:00 02/24/17 10:59 Amlodipine Besylate (Norvasc) 5 mg BID ORAL 02/19/17 18:00 03/22/17 08:59 02/20/17 09:03 Ciprofloxacin (Cipro 250mg tab) 250 mg EVERY 12 HOURS ORAL 02/19/17 21:00 02/26/17 20:59 02/20/17 09:03 Clonidine HCl (Catapres) 0.1 mg Q6H PRN ORAL sbp above 160 02/19/17 10:45 03/21/17 10:44 Cyanocobalamin (Vitamin B12) 1,000 mcg DAILY SUBQ 10/21/17 16:00 02/21/17 09:01 02/20/17 09:03 Dextrose (Dextrose 50%) STAT PRN IV Hypoglycemia 02/16/17 16:45 03/18/17 16:44 Ergocalciferol (Drisdol) 50,000 intlu QWEEK ORAL 02/19/17 15:00 03/21/17 14:59 02/19/17 15:48 Folic Acid (Folate) 2 mg DAILY ORAL 02/19/17 15:00 03/21/17 14:59 02/20/17 09:03 Heparin Sodium (Porcine) (Heparin 5000 units/ml) 5,000 units EVERY 12 HOURS SUBQ 02/16/17 21:00 03/18/17 20:59 02/20/17 09:04 Lansoprazole (Prevacid) 30 mg DAILY ORAL 02/19/17 15:00 03/21/17 14:59 02/20/17 07:47 Morphine Sulfate (Morphine Sulfate) 2 mg Q4H PRN IVP Moderate Pain (Pain Scale 4-6) 02/16/17 16:45 02/23/17 16:44 02/17/17 16:23 Nitroglycerin (Ntg) 0.4 mg Every 5 Minutes PRN SL Prn Chest Pain 02/16/17 16:45 03/18/17 16:44 Ondansetron HCl (Zofran) 4 mg Q6H PRN IVP Nausea & Vomiting 02/16/17 16:45 03/18/17 16:44 Polyethylene Glycol (Miralax) 17 gm DAILYPRN PRN ORAL Constipation 02/16/17 16:45 03/18/17 16:44 Temazepam (Restoril) 15 mg HSPRN PRN ORAL Insomnia 02/16/17 16:45 02/23/17 16:44 Vancomycin HCl (Vanco rx to dose) 1 ea DAILY PRN MISC PER RX PROTOCOL 02/16/17 18:00 03/18/17 17:59 Vancomycin HCl/ Dextrose 250 ml @ 166.667 mls/hr Q24H IVPB 02/19/17 18:00 02/24/17 17:59 02/19/17 18:36 RANI WHATLEY Feb 20, 2017 10:55
--- NOTE | 2017-02-20 11:22 | General Progress Note ---
Assessment/Plan Status: unchanged Status Narrative Cr lower Assessment/Plan UTI Bilateral posterior thigh chronic nonhealing ulcers Venous stasis ulcers, bilateral, chronic, nonhealing ARF on CKD Obesity homeless anemia w/chair bound Plan; Monitor renal parameters- Add Norvasc for better BP control. adjust dose Avoid nephrotoxics Iron and B12 and gastric support Subjective ROS Limited/Unobtainable: No Constitutional: Reports: malaise Allergies: Coded Allergies: No Known Allergies (Unverified , 02/11/17) Objective Last 24 Hour Vital Signs Date Time Temp Pulse Resp B/P (MAP) Pulse Ox O2 Delivery O2 Flow Rate FiO2 02/20/17 09:03 58 154/71 02/20/17 08:12 97.2 58 18 154/71 94 Room Air 02/20/17 08:09 67 16 Room Air 02/20/17 08:09 Room Air 02/20/17 04:00 97.1 61 18 145/62 96 Room Air 02/20/17 00:00 97.3 61 18 114/61 96 Room Air 02/19/17 20:00 97.5 65 18 143/68 96 Room Air 02/19/17 18:35 60 139/60 02/19/17 16:00 97.2 60 18 139/60 99 Room Air 02/19/17 12:42 97.5 60 16 143/56 98 Room Air Intake and Output 02/20/17 02/21/17 19:00 07:00 Intake Total 240 ml Balance 240 ml Intake Oral 240 ml Laboratory Tests 02/19/17 16:15: Vancomycin Level Trough 5.1 02/20/17 07:45: White Blood Count 6.5, Red Blood Count 4.01L, Hemoglobin 10.8L, Hematocrit 35.4L , Mean Corpuscular Volume 88, Mean Corpuscular Hemoglobin 27.0, Mean Corpuscular Hemoglobin Concent 30.7L, Red Cell Distribution Width 18.7H, Platelet Count 569H, Mean Platelet Volume 4.9L, Neutrophils (%) (Auto) 57.3, Lymphocytes (%) (Auto) 26.9, Monocytes (%) (Auto) 5.1, Eosinophils (%) (Auto) 9.1H, Basophils (%) (Auto) 1.7, Sodium Level 138, Potassium Level 4.4, Chloride Level 100, Carbon Dioxide Level 28, Anion Gap 10, Blood Urea Nitrogen 22H, Creatinine 1.4H, Estimat Glomerular Filtration Rate 37.8, Glucose Level 103, Calcium Level 10.1 Height (Feet): 5 Height (Inches): 4.00 Weight (Pounds): 143 General Appearance: no apparent distress, lethargic Objective PE not changed EFRA BRODY Feb 20, 2017 11:22
[2017-02-20 12:00] VITALS: BP 147/87
[2017-02-20 16:00] VITALS: BP 141/62
[2017-02-20] MEDS: Vancomycin 1250mg/D5W 250ml 250 ML IVPB SCH (18:10)
[2017-02-20 20:30] VITALS: BP 144/63
[2017-02-21 00:25] VITALS: BP 158/71
[2017-02-21 04:20] VITALS: BP 139/64
[2017-02-21 07:50] LABS: BASOPHILS % (AUTO) 1.5 % (0.0-2.0); EOSINOPHILS % (AUTO) 7.8 % (0.0-3.0); LYMPHOCYTES % (AUTO) 27.8 % (20.0-45.0); MEAN CORPUSCULAR HEMOGLOBIN 27.8 PG (27.0-31.0); MEAN CORPUSCULAR HGB CONC 31.6 G/DL (32.0-36.0); MEAN CORPUSCULAR VOLUME 88 FL (80-99); MEAN PLATELET VOLUME 4.6 FL (6.5-10.1); MONOCYTES % (AUTO) 6.6 % (1.0-10.0); NEUTROPHILS % (AUTO) 56.4 % (45.0-75.0); PLATELET COUNT 552 K/UL (150-450); RED BLOOD COUNT 3.75 M/UL (4.20-5.40); RED CELL DISTRIBUTION WIDTH 19.3 % (11.6-14.8); WHITE BLOOD COUNT 8.7 K/UL (4.8-10.8)
[2017-02-21 08:02] LABS: ANION GAP 7 mmol/L (5-15); CALCIUM 9.7 MG/DL (8.5-10.1); CARBON DIOXIDE 26 MMOL/L (21-32); CHLORIDE 100 MMOL/L (98-107); CREATININE 1.4 MG/DL (0.55-1.30); GLOMERULAR FILTRATION RATE 37.8 mL/min (>60); POTASSIUM 4.5 MMOL/L (3.5-5.1); SODIUM 133 MMOL/L (136-145)
[2017-02-21] MEDS: Heparin 5000 units/ml inj SUBQ SCH ×2 (08:52→21:00)
[2017-02-21] MEDS: Vitamin B12 1000mcg/ml Inj SUBQ SCH (08:52)
--- NOTE | 2017-02-21 10:53 | General Progress Note ---
Assessment/Plan Status: stable Status Narrative Cr 1.4 Assessment/Plan UTI Bilateral posterior thigh chronic nonhealing ulcers Venous stasis ulcers, bilateral, chronic, nonhealing ARF on CKD Obesity homeless anemia w/chair bound Plan; Monitor renal parameters- Add Norvasc for better BP control. adjust dose Avoid nephrotoxics Iron and B12 and gastric support Subjective ROS Limited/Unobtainable: No Constitutional: Reports: malaise Allergies: Coded Allergies: No Known Allergies (Unverified , 02/11/17) Objective Last 24 Hour Vital Signs Date Time Temp Pulse Resp B/P (MAP) Pulse Ox O2 Delivery O2 Flow Rate FiO2 02/21/17 08:52 61 139/64 02/21/17 04:20 97.6 61 18 139/64 96 Room Air 02/21/17 00:25 97.1 69 18 158/71 99 Room Air 02/20/17 20:30 97.0 66 18 144/63 98 Room Air 02/20/17 20:15 Room Air 21 02/20/17 20:15 65 16 Room Air 21 02/20/17 18:09 63 141/62 02/20/17 16:00 97.3 63 18 141/62 98 Room Air 02/20/17 12:00 97.9 64 20 147/87 100 Room Air Intake and Output 02/21/17 02/22/17 19:00 07:00 # Bowel Movements 1 Laboratory Tests 02/21/17 04:50: White Blood Count 8.7, Red Blood Count 3.75L, Hemoglobin 10.4L, Hematocrit 33.1L , Mean Corpuscular Volume 88, Mean Corpuscular Hemoglobin 27.8, Mean Corpuscular Hemoglobin Concent 31.6L, Red Cell Distribution Width 19.3H, Platelet Count 552H, Mean Platelet Volume 4.6L, Neutrophils (%) (Auto) 56.4, Lymphocytes (%) (Auto) 27.8, Monocytes (%) (Auto) 6.6, Eosinophils (%) (Auto) 7.8H, Basophils (%) (Auto) 1.5, Sodium Level 133L, Potassium Level 4.5, Chloride Level 100, Carbon Dioxide Level 26, Anion Gap 7, Blood Urea Nitrogen 23H, Creatinine 1.4H, Estimat Glomerular Filtration Rate 37.8, Glucose Level 89 , Calcium Level 9.7 Height (Feet): 5 Height (Inches): 4.00 Weight (Pounds): 143 General Appearance: no apparent distress Objective PE not changed EFRA BRODY Feb 21, 2017 10:53
[2017-02-21 12:00] VITALS: BP 139/59
--- NOTE | 2017-02-21 12:01 | Infectious Diseases Prog Note ---
Assessment/Plan Assessment/Plan Assessment/Plan ASSESSMENT: 67 y/o female with: // Possible UTI - UCx :P. mirabilis, Ecoli (S Cipro) // Chronic nonhealing bilateral posterior thigh ulcers ( >3yrs ) - WCx :MRSA // Chronic nonhealing BLE venous stasis ulcers - WCx MRSA, PsA (Cipro S) // Afebrile without leukocytosis // Renal insufficiency ?acute vs chronic // Thrombocytosis // Obesity // Homelessness // Wheelchair bound // NKDA // Full Code PLAN: -Switch IV vancomycin #10/09 to PO bactrim DS 1 tab daily for cellulitis -Continue Cipro #3 (abx #10/09) for cellulitis and UTI - f/u cultures - monitor CBC, temperatures - monitor BMP - wound care - may need placement Subjective Allergies: Coded Allergies: No Known Allergies (Unverified , 02/11/17) Subjective afebrile no leukocytosis Objective Vital Signs Last 24 Hour Vital Signs Date Time Temp Pulse Resp B/P (MAP) Pulse Ox O2 Delivery O2 Flow Rate FiO2 02/21/17 08:52 61 139/64 02/21/17 04:20 97.6 61 18 139/64 96 Room Air 02/21/17 00:25 97.1 69 18 158/71 99 Room Air 02/20/17 20:30 97.0 66 18 144/63 98 Room Air 02/20/17 20:15 Room Air 21 02/20/17 20:15 65 16 Room Air 21 02/20/17 18:09 63 141/62 02/20/17 16:00 97.3 63 18 141/62 98 Room Air Height (Feet): 5 Height (Inches): 4.00 Weight (Pounds): 143 Objective General Appearance: no acute distress HEENT: mucous membranes moist Respiratory/Chest: lungs clear Cardiovascular: normal rate Abdomen: soft, non tender Extremities: no edema Skin: ulcers, other - erythema in posterior legs Neurologic/Psychiatric: other - sleeping reviewed Laboratory Tests Test 02/21/17 04:50 White Blood Count 8.7 K/UL (4.8-10.8) Red Blood Count 3.75 M/UL (4.20-5.40) L Hemoglobin 10.4 G/DL (12.0-16.0) L Hematocrit 33.1 % (37.0-47.0) L Mean Corpuscular Volume 88 FL (80-99) Mean Corpuscular Hemoglobin 27.8 PG (27.0-31.0) Mean Corpuscular Hemoglobin Concent 31.6 G/DL (32.0-36.0) L Red Cell Distribution Width 19.3 % (11.6-14.8) H Platelet Count 552 K/UL (150-450) H Mean Platelet Volume 4.6 FL (6.5-10.1) L Neutrophils (%) (Auto) 56.4 % (45.0-75.0) Lymphocytes (%) (Auto) 27.8 % (20.0-45.0) Monocytes (%) (Auto) 6.6 % (1.0-10.0) Eosinophils (%) (Auto) 7.8 % (0.0-3.0) H Basophils (%) (Auto) 1.5 % (0.0-2.0) Sodium Level 133 MMOL/L (136-145) L Potassium Level 4.5 MMOL/L (3.5-5.1) Chloride Level 100 MMOL/L (98-107) Carbon Dioxide Level 26 MMOL/L (21-32) Anion Gap 7 mmol/L (5-15) Blood Urea Nitrogen 23 mg/dL (7-18) H Creatinine 1.4 MG/DL (0.55-1.30) H Estimat Glomerular Filtration Rate 37.8 mL/min (>60) Glucose Level 89 MG/DL (74-106) Calcium Level 9.7 MG/DL (8.5-10.1) Current Medications Medications (Trade) Dose Ordered Sig/Luz Route PRN Reason Start Time Stop Time Status Last Admin Dose Admin Acetaminophen (Tylenol) 650 mg Q4H PRN ORAL fever 02/16/17 16:45 03/18/17 16:44 Albuterol/ Ipratropium (DuoNeb 0.5-3(2.5)mg/3ml) 3 ml Q4H PRN HHN Shortness of Breath 02/19/17 11:00 02/24/17 10:59 Amlodipine Besylate (Norvasc) 5 mg BID ORAL 02/19/17 18:00 03/22/17 08:59 02/21/17 08:52 Ciprofloxacin (Cipro 250mg tab) 250 mg EVERY 12 HOURS ORAL 02/19/17 21:00 02/26/17 20:59 02/21/17 08:51 Clonidine HCl (Catapres) 0.1 mg Q6H PRN ORAL sbp above 160 02/19/17 10:45 03/21/17 10:44 Dextrose (Dextrose 50%) STAT PRN IV Hypoglycemia 02/16/17 16:45 03/18/17 16:44 Ergocalciferol (Drisdol) 50,000 intlu QWEEK ORAL 02/19/17 15:00 03/21/17 14:59 02/19/17 15:48 Folic Acid (Folate) 2 mg DAILY ORAL 02/19/17 15:00 03/21/17 14:59 02/21/17 08:51 Heparin Sodium (Porcine) (Heparin 5000 units/ml) 5,000 units EVERY 12 HOURS SUBQ 02/16/17 21:00 03/18/17 20:59 02/21/17 08:52 Lansoprazole (Prevacid) 30 mg DAILY ORAL 02/19/17 15:00 03/21/17 14:59 02/21/17 08:51 Morphine Sulfate (Morphine Sulfate) 2 mg Q4H PRN IVP Moderate Pain (Pain Scale 4-6) 02/16/17 16:45 02/23/17 16:44 02/17/17 16:23 Nitroglycerin (Ntg) 0.4 mg Every 5 Minutes PRN SL Prn Chest Pain 02/16/17 16:45 03/18/17 16:44 Ondansetron HCl (Zofran) 4 mg Q6H PRN IVP Nausea & Vomiting 02/16/17 16:45 03/18/17 16:44 Polyethylene Glycol (Miralax) 17 gm DAILYPRN PRN ORAL Constipation 02/16/17 16:45 03/18/17 16:44 Temazepam (Restoril) 15 mg HSPRN PRN ORAL Insomnia 02/16/17 16:45 02/23/17 16:44 Vancomycin HCl (Vanco rx to dose) 1 ea DAILY PRN MISC PER RX PROTOCOL 02/16/17 18:00 03/18/17 17:59 Vancomycin HCl/ Dextrose 250 ml @ 166.667 mls/hr Q24H IVPB 02/19/17 18:00 02/24/17 17:59 02/20/17 18:10 Es Tian M.D. Feb 21, 2017 12:01
[2017-02-21 16:06] VITALS: BP 111/60
[2017-02-21] MEDS: Bactrim DS (160mg/800mg) tab ORAL SCH (17:14)
[2017-02-21 19:57] VITALS: BP 133/75
--- NOTE | 2017-02-21 22:50 | Pulmonology Progress Note ---
Assessment/Plan Problems: (1) Cellulitis (2) Decubitus ulcers (3) Venous stasis ulcer (4) ATN (acute tubular necrosis) Assessment/Plan continue the same iv bx wound care watch renal parameters placement Subjective ROS Limited/Unobtainable: No Constitutional: Reports: no symptoms HEENT: Repors: no symptoms Allergies: Coded Allergies: No Known Allergies (Unverified , 02/11/17) Objective Last 24 Hour Vital Signs Date Time Temp Pulse Resp B/P (MAP) Pulse Ox O2 Delivery O2 Flow Rate FiO2 02/21/17 19:57 97.7 71 18 133/75 95 Room Air 02/21/17 19:50 Room Air 21 02/21/17 19:50 71 16 Room Air 21 02/21/17 17:15 63 111/60 02/21/17 16:06 96.8 63 20 111/60 98 Room Air 02/21/17 12:00 97.3 67 18 139/59 96 Room Air 02/21/17 08:52 61 139/64 02/21/17 04:20 97.6 61 18 139/64 96 Room Air 02/21/17 00:25 97.1 69 18 158/71 99 Room Air Intake and Output 02/21/17 02/22/17 19:00 07:00 Intake Total 1320 ml Balance 1320 ml Intake Oral 1320 ml # Voids 7 # Bowel Movements 2 1 General Appearance: WD/WN HEENT: normocephalic, atraumatic Respiratory/Chest: chest wall non-tender, lungs clear Cardiovascular: normal peripheral pulses, regular rhythm Abdomen: soft, non tender, no organomegaly Genitourinary: normal external genitalia Skin: no lesions 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 Laboratory Tests 02/21/17 04:50: White Blood Count 8.7, Red Blood Count 3.75L, Hemoglobin 10.4L, Hematocrit 33.1L , Mean Corpuscular Volume 88, Mean Corpuscular Hemoglobin 27.8, Mean Corpuscular Hemoglobin Concent 31.6L, Red Cell Distribution Width 19.3H, Platelet Count 552H, Mean Platelet Volume 4.6L, Neutrophils (%) (Auto) 56.4, Lymphocytes (%) (Auto) 27.8, Monocytes (%) (Auto) 6.6, Eosinophils (%) (Auto) 7.8H, Basophils (%) (Auto) 1.5, Sodium Level 133L, Potassium Level 4.5, Chloride Level 100, Carbon Dioxide Level 26, Anion Gap 7, Blood Urea Nitrogen 23H, Creatinine 1.4H, Estimat Glomerular Filtration Rate 37.8, Glucose Level 89 , Calcium Level 9.7 Current Medications Medications (Trade) Dose Ordered Sig/Luz Route PRN Reason Start Time Stop Time Status Last Admin Dose Admin Acetaminophen (Tylenol) 650 mg Q4H PRN ORAL fever 02/16/17 16:45 03/18/17 16:44 Albuterol/ Ipratropium (DuoNeb 0.5-3(2.5)mg/3ml) 3 ml Q4H PRN HHN Shortness of Breath 02/19/17 11:00 02/24/17 10:59 Amlodipine Besylate (Norvasc) 5 mg BID ORAL 02/19/17 18:00 03/22/17 08:59 02/21/17 17:15 Ciprofloxacin (Cipro 250mg tab) 250 mg EVERY 12 HOURS ORAL 02/19/17 21:00 02/26/17 20:59 02/21/17 21:24 Clonidine HCl (Catapres) 0.1 mg Q6H PRN ORAL sbp above 160 02/19/17 10:45 03/21/17 10:44 Dextrose (Dextrose 50%) STAT PRN IV Hypoglycemia 02/16/17 16:45 03/18/17 16:44 Ergocalciferol (Drisdol) 50,000 intlu QWEEK ORAL 02/19/17 15:00 03/21/17 14:59 02/19/17 15:48 Folic Acid (Folate) 2 mg DAILY ORAL 02/19/17 15:00 03/21/17 14:59 02/21/17 08:51 Heparin Sodium (Porcine) (Heparin 5000 units/ml) 5,000 units EVERY 12 HOURS SUBQ 02/16/17 21:00 03/18/17 20:59 02/21/17 08:52 Lansoprazole (Prevacid) 30 mg DAILY ORAL 02/19/17 15:00 03/21/17 14:59 02/21/17 08:51 Morphine Sulfate (Morphine Sulfate) 2 mg Q4H PRN IVP Moderate Pain (Pain Scale 4-6) 02/16/17 16:45 10/25/17 16:44 02/17/17 16:23 Nitroglycerin (Ntg) 0.4 mg Every 5 Minutes PRN SL Prn Chest Pain 02/16/17 16:45 03/18/17 16:44 Ondansetron HCl (Zofran) 4 mg Q6H PRN IVP Nausea & Vomiting 02/16/17 16:45 03/18/17 16:44 Polyethylene Glycol (Miralax) 17 gm DAILYPRN PRN ORAL Constipation 02/16/17 16:45 03/18/17 16:44 Temazepam (Restoril) 15 mg HSPRN PRN ORAL Insomnia 02/16/17 16:45 02/23/17 16:44 Trimethoprim/ Sulfamethoxazole (Bactrim-DS) 1 ea DAILY ORAL 02/21/17 15:00 02/28/17 14:59 02/21/17 17:14 ISMA PEPE Feb 21, 2017 22:50
[2017-02-22 00:06] VITALS: BP 118/90
[2017-02-22 04:00] VITALS: BP 120/70
[2017-02-22 08:00] VITALS: BP 135/77
[2017-02-22] MEDS: Bactrim DS (160mg/800mg) tab ORAL SCH (09:30)
[2017-02-22] MEDS: Heparin 5000 units/ml inj SUBQ SCH ×2 (09:31→22:46)
--- NOTE | 2017-02-22 10:53 | Infectious Diseases Prog Note ---
Assessment/Plan Assessment/Plan Assessment/Plan ASSESSMENT: 67 y/o female with: // Possible UTI - UCx :P. mirabilis, Ecoli (S Cipro) // Chronic nonhealing bilateral posterior thigh ulcers ( >3yrs ) - WCx :MRSA, with surrounding cellultis // Chronic nonhealing BLE venous stasis ulcers - WCx MRSA, PsA (Cipro S) // Afebrile without leukocytosis // Renal insufficiency ?acute vs chronic // Thrombocytosis // Obesity // Homelessness // Wheelchair bound // NKDA // Full Code PLAN: -Continue PO bactrim DS 1 tab daily abx d#7/ for cellulitis -Continue Cipro #4 (abx #7) for cellulitis and UTI -s/p 6d IV Vancomycin 02/21 -s/p 3d IV Cefepime 02/19 - f/u cultures - monitor CBC, temperatures - monitor BMP - wound care Discussed with RN. Subjective Allergies: Coded Allergies: No Known Allergies (Unverified , 02/11/17) Subjective afebrile no leukocytosis Objective Vital Signs Last 24 Hour Vital Signs Date Time Temp Pulse Resp B/P (MAP) Pulse Ox O2 Delivery O2 Flow Rate FiO2 02/22/17 09:30 58 135/77 02/22/17 08:00 97.4 58 18 135/77 93 Room Air 02/22/17 07:47 75 16 Room Air 02/22/17 04:00 98.0 71 20 120/70 96 Room Air 02/22/17 00:06 97.9 67 20 118/90 94 Room Air 02/21/17 19:57 97.7 71 18 133/75 95 Room Air 02/21/17 19:50 Room Air 21 02/21/17 19:50 71 16 Room Air 21 02/21/17 17:15 63 111/60 02/21/17 16:06 96.8 63 20 111/60 98 Room Air 02/21/17 12:00 97.3 67 18 139/59 96 Room Air Height (Feet): 5 Height (Inches): 4.00 Weight (Pounds): 143 Objective General Appearance: no acute distress HEENT: mucous membranes moist Respiratory/Chest: lungs clear Cardiovascular: normal rate Abdomen: soft, non tender Extremities: no edema Skin: ulcers, other - erythema in posterior legs Neurologic/Psychiatric: other - sleeping reviewed reviewed Current Medications Medications (Trade) Dose Ordered Sig/Luz Route PRN Reason Start Time Stop Time Status Last Admin Dose Admin Acetaminophen (Tylenol) 650 mg Q4H PRN ORAL fever 02/16/17 16:45 03/18/17 16:44 Albuterol/ Ipratropium (DuoNeb 0.5-3(2.5)mg/3ml) 3 ml Q4H PRN HHN Shortness of Breath 02/19/17 11:00 02/24/17 10:59 Amlodipine Besylate (Norvasc) 5 mg BID ORAL 02/19/17 18:00 03/22/17 08:59 02/22/17 09:30 Ciprofloxacin (Cipro 250mg tab) 250 mg EVERY 12 HOURS ORAL 02/19/17 21:00 02/26/17 20:59 02/22/17 09:30 Clonidine HCl (Catapres) 0.1 mg Q6H PRN ORAL sbp above 160 02/19/17 10:45 03/21/17 10:44 Dextrose (Dextrose 50%) STAT PRN IV Hypoglycemia 02/16/17 16:45 03/18/17 16:44 Ergocalciferol (Drisdol) 50,000 intlu QWEEK ORAL 02/19/17 15:00 03/21/17 14:59 02/19/17 15:48 Folic Acid (Folate) 2 mg DAILY ORAL 02/19/17 15:00 03/21/17 14:59 02/22/17 09:39 Heparin Sodium (Porcine) (Heparin 5000 units/ml) 5,000 units EVERY 12 HOURS SUBQ 02/16/17 21:00 03/18/17 20:59 02/22/17 09:31 Lansoprazole (Prevacid) 30 mg DAILY ORAL 02/19/17 15:00 03/21/17 14:59 02/22/17 07:56 Morphine Sulfate (Morphine Sulfate) 2 mg Q4H PRN IVP Moderate Pain (Pain Scale 4-6) 02/16/17 16:45 02/23/17 16:44 02/17/17 16:23 Nitroglycerin (Ntg) 0.4 mg Every 5 Minutes PRN SL Prn Chest Pain 02/16/17 16:45 03/18/17 16:44 Ondansetron HCl (Zofran) 4 mg Q6H PRN IVP Nausea & Vomiting 02/16/17 16:45 03/18/17 16:44 Polyethylene Glycol (Miralax) 17 gm DAILYPRN PRN ORAL Constipation 02/16/17 16:45 03/18/17 16:44 Temazepam (Restoril) 15 mg HSPRN PRN ORAL Insomnia 02/16/17 16:45 02/23/17 16:44 Trimethoprim/ Sulfamethoxazole (Bactrim-DS) 1 ea DAILY ORAL 02/21/17 15:00 02/28/17 14:59 02/22/17 09:30 Es Tian M.D. Feb 22, 2017 10:53
[2017-02-22 12:00] VITALS: BP 134/59
--- NOTE | 2017-02-22 12:26 | General Progress Note ---
Assessment/Plan Status: stable Assessment/Plan UTI Bilateral posterior thigh chronic nonhealing ulcers Venous stasis ulcers, bilateral, chronic, nonhealing ARF on CKD Obesity homeless anemia w/chair bound Plan; Monitor renal parameters- Add Norvasc for better BP control. adjust dose Avoid nephrotoxics Iron and B12 and gastric support DC planning? Subjective ROS Limited/Unobtainable: No Constitutional: Reports: malaise Allergies: Coded Allergies: No Known Allergies (Unverified , 02/11/17) Objective Last 24 Hour Vital Signs Date Time Temp Pulse Resp B/P (MAP) Pulse Ox O2 Delivery O2 Flow Rate FiO2 02/22/17 09:30 58 135/77 02/22/17 08:00 97.4 58 18 135/77 93 Room Air 02/22/17 07:47 75 16 Room Air 21 02/22/17 04:00 98.0 71 20 120/70 96 Room Air 02/22/17 00:06 97.9 67 20 118/90 94 Room Air 02/21/17 19:57 97.7 71 18 133/75 95 Room Air 02/21/17 19:50 Room Air 21 02/21/17 19:50 71 16 Room Air 21 02/21/17 17:15 63 111/60 02/21/17 16:06 96.8 63 20 111/60 98 Room Air Height (Feet): 5 Height (Inches): 4.00 Weight (Pounds): 143 General Appearance: no apparent distress Objective PE not changed EFRA BRODY Feb 22, 2017 12:26
[2017-02-22] MEDS: Norco 5mg/325mg tab ORAL PRN (15:43)
[2017-02-22 16:00] VITALS: BP 115/59
[2017-02-22] MEDS ORDERED: CIPROFLOXACIN250 MG ORAL (16:54)
[2017-02-22] MEDS ORDERED: BACTRIM-DS1 EA ORAL (16:54)
[2017-02-22] MEDS ORDERED: NORVASC5 MG ORAL (16:54)
[2017-02-22 21:15] VITALS: BP 97/37
[2017-02-23] VITALS (7 sets, daily range): BP systolic 114–148; BP diastolic 45–68
[2017-02-23] MEDS: Bactrim DS (160mg/800mg) tab ORAL SCH (08:39)
[2017-02-23] MEDS: Heparin 5000 units/ml inj SUBQ SCH ×2 (08:40→21:25)
--- NOTE | 2017-02-23 11:34 | General Progress Note ---
Assessment/Plan Status: stable Assessment/Plan UTI Bilateral posterior thigh chronic nonhealing ulcers Venous stasis ulcers, bilateral, chronic, nonhealing ARF on CKD Obesity homeless anemia w/chair bound Plan; Monitor renal parameters- Add Norvasc for better BP control. adjust dose Avoid nephrotoxics Iron and B12 and gastric support DC planning? Subjective ROS Limited/Unobtainable: No Constitutional: Reports: malaise Allergies: Coded Allergies: No Known Allergies (Unverified , 02/11/17) Objective Last 24 Hour Vital Signs Date Time Temp Pulse Resp B/P (MAP) Pulse Ox O2 Delivery O2 Flow Rate FiO2 02/23/17 08:41 61 115/52 02/23/17 08:00 97.5 61 18 115/52 95 Room Air 02/23/17 07:12 65 18 Room Air 21 02/23/17 04:00 97.9 62 18 148/68 97 Room Air 02/23/17 00:10 97.7 62 20 114/49 92 Room Air 02/22/17 21:15 97.9 65 20 97/37 93 Room Air 02/22/17 21:08 68 18 Room Air 21 02/22/17 17:38 68 115/59 02/22/17 16:42 96.6 02/22/17 16:00 97.2 68 17 115/59 95 Room Air 02/22/17 12:00 96.6 61 18 134/59 96 Room Air Height (Feet): 5 Height (Inches): 4.00 Weight (Pounds): 143 General Appearance: no apparent distress Objective PE not changed EFRA BRODY Feb 23, 2017 11:34
--- NOTE | 2017-02-23 12:29 | Infectious Diseases Prog Note ---
Assessment/Plan Assessment/Plan Assessment/Plan ASSESSMENT: 67 y/o female with: // Possible UTI - UCx :P. mirabilis, Ecoli (S Cipro) // Chronic nonhealing bilateral posterior thigh ulcers ( >3yrs ) - WCx :MRSA, with surrounding cellultis // Chronic nonhealing BLE venous stasis ulcers - WCx MRSA, PsA (Cipro S) // Afebrile without leukocytosis // Renal insufficiency ?acute vs chronic // Thrombocytosis // Obesity // Homelessness // Wheelchair bound // NKDA // Full Code PLAN: -Continue PO bactrim DS 1 tab daily abx d#12/13 for cellulitis -Continue Cipro #5 (abx #12/13) for cellulitis and UTI -s/p 6d IV Vancomycin 02/21 -s/p 3d IV Cefepime 02/19 - f/u cultures - monitor CBC, temperatures - monitor BMP - wound care Discussed with RN. Subjective Allergies: Coded Allergies: No Known Allergies (Unverified , 02/11/17) Subjective afebrile no leukocytosis Objective Vital Signs Last 24 Hour Vital Signs Date Time Temp Pulse Resp B/P (MAP) Pulse Ox O2 Delivery O2 Flow Rate FiO2 02/23/17 08:41 61 115/52 02/23/17 08:00 97.5 61 18 115/52 95 Room Air 02/23/17 07:12 65 18 Room Air 21 02/23/17 04:00 97.9 62 18 148/68 97 Room Air 02/23/17 00:10 97.7 62 20 114/49 92 Room Air 02/22/17 21:15 97.9 65 20 97/37 93 Room Air 02/22/17 21:08 68 18 Room Air 21 02/22/17 17:38 68 115/59 02/22/17 16:42 96.6 02/22/17 16:00 97.2 68 17 115/59 95 Room Air Height (Feet): 5 Height (Inches): 4.00 Weight (Pounds): 143 Objective General Appearance: no acute distress HEENT: mucous membranes moist Respiratory/Chest: lungs clear Cardiovascular: normal rate Abdomen: soft, non tender Extremities: no edema Skin: ulcers, other - erythema in posterior legs, ulcer on posterior thights Neurologic/Psychiatric: AAO3, no focal deficits reviewed reviewed Current Medications Medications (Trade) Dose Ordered Sig/Luz Route PRN Reason Start Time Stop Time Status Last Admin Dose Admin Acetaminophen (Tylenol) 650 mg Q4H PRN ORAL fever 02/16/17 16:45 03/18/17 16:44 Acetaminophen/ Hydrocodone Bitart ([place] 5/325) 1 tab Q4H PRN ORAL Moderate Pain (Pain Scale 4-6) 02/22/17 11:00 03/01/17 10:59 02/22/17 15:43 Albuterol/ Ipratropium (DuoNeb 0.5-3(2.5)mg/3ml) 3 ml Q4H PRN HHN Shortness of Breath 02/19/17 11:00 02/24/17 10:59 Amlodipine Besylate (Norvasc) 5 mg BID ORAL 02/19/17 18:00 03/22/17 08:59 02/22/17 17:38 Ciprofloxacin (Cipro 250mg tab) 250 mg EVERY 12 HOURS ORAL 02/19/17 21:00 02/26/17 20:59 02/23/17 08:39 Clonidine HCl (Catapres) 0.1 mg Q6H PRN ORAL sbp above 160 02/19/17 10:45 03/21/17 10:44 Dextrose (Dextrose 50%) STAT PRN IV Hypoglycemia 02/16/17 16:45 03/18/17 16:44 Ergocalciferol (Drisdol) 50,000 intlu QWEEK ORAL 02/19/17 15:00 03/21/17 14:59 02/19/17 15:48 Folic Acid (Folate) 2 mg DAILY ORAL 02/19/17 15:00 03/21/17 14:59 02/23/17 08:39 Heparin Sodium (Porcine) (Heparin 5000 units/ml) 5,000 units EVERY 12 HOURS SUBQ 02/16/17 21:00 03/18/17 20:59 02/23/17 08:40 Lansoprazole (Prevacid) 30 mg DAILY ORAL 02/19/17 15:00 03/21/17 14:59 02/23/17 08:39 Morphine Sulfate (Morphine Sulfate) 2 mg Q4H PRN IVP Moderate Pain (Pain Scale 4-6) 02/16/17 16:45 02/23/17 16:44 02/17/17 16:23 Nitroglycerin (Ntg) 0.4 mg Every 5 Minutes PRN SL Prn Chest Pain 02/16/17 16:45 03/18/17 16:44 Ondansetron HCl (Zofran) 4 mg Q6H PRN IVP Nausea & Vomiting 02/16/17 16:45 03/18/17 16:44 Polyethylene Glycol (Miralax) 17 gm DAILYPRN PRN ORAL Constipation 02/16/17 16:45 03/18/17 16:44 Temazepam (Restoril) 15 mg HSPRN PRN ORAL Insomnia 02/16/17 16:45 02/23/17 16:44 Trimethoprim/ Sulfamethoxazole (Bactrim-DS) 1 ea DAILY ORAL 02/21/17 15:00 02/28/17 14:59 02/23/17 08:39 Es Tian M.D. Feb 23, 2017 12:29
--- NOTE | 2017-02-23 18:43 | Pulmonology Progress Note ---
Assessment/Plan Problems: (1) Cellulitis (2) Decubitus ulcers (3) Venous stasis ulcer (4) ATN (acute tubular necrosis) Assessment/Plan continue the same iv bx wound care watch renal parameters placement Subjective Interval Events: late note for 02/22 Allergies: Coded Allergies: No Known Allergies (Unverified , 02/11/17) Objective Last 24 Hour Vital Signs Date Time Temp Pulse Resp B/P (MAP) Pulse Ox O2 Delivery O2 Flow Rate FiO2 02/23/17 16:41 97.7 75 18 128/56 91 Room Air 02/23/17 12:00 97.3 67 21 133/66 92 Room Air 02/23/17 08:41 61 115/52 02/23/17 08:00 97.5 61 18 115/52 95 Room Air 02/23/17 07:12 65 18 Room Air 21 02/23/17 04:00 97.9 62 18 148/68 97 Room Air 02/23/17 00:10 97.7 62 20 114/49 92 Room Air 02/22/17 21:15 97.9 65 20 97/37 93 Room Air 02/22/17 21:08 68 18 Room Air 21 General Appearance: WD/WN HEENT: normocephalic, atraumatic Respiratory/Chest: chest wall non-tender, lungs clear Cardiovascular: normal peripheral pulses Abdomen: normal bowel sounds, soft, non tender Genitourinary: normal external genitalia Neurologic/Psychiatric: cover seamer II-XII grossly normal Current Medications Medications (Trade) Dose Ordered Sig/Luz Route PRN Reason Start Time Stop Time Status Last Admin Dose Admin Acetaminophen (Tylenol) 650 mg Q4H PRN ORAL fever 02/16/17 16:45 03/18/17 16:44 Acetaminophen/ Hydrocodone Bitart ([place] 5/325) 1 tab Q4H PRN ORAL Moderate Pain (Pain Scale 4-6) 02/22/17 11:00 03/01/17 10:59 02/22/17 15:43 Albuterol/ Ipratropium (DuoNeb 0.5-3(2.5)mg/3ml) 3 ml Q4H PRN HHN Shortness of Breath 02/19/17 11:00 02/24/17 10:59 Amlodipine Besylate (Norvasc) 5 mg BID ORAL 02/19/17 18:00 03/22/17 08:59 02/22/17 17:38 Ciprofloxacin (Cipro 250mg tab) 250 mg EVERY 12 HOURS ORAL 02/19/17 21:00 02/26/17 20:59 02/23/17 08:39 Clonidine HCl (Catapres) 0.1 mg Q6H PRN ORAL sbp above 160 02/19/17 10:45 03/21/17 10:44 Dextrose (Dextrose 50%) STAT PRN IV Hypoglycemia 02/16/17 16:45 03/18/17 16:44 Ergocalciferol (Drisdol) 50,000 intlu QWEEK ORAL 02/19/17 15:00 03/21/17 14:59 02/19/17 15:48 Folic Acid (Folate) 2 mg DAILY ORAL 02/19/17 15:00 03/21/17 14:59 02/23/17 08:39 Heparin Sodium (Porcine) (Heparin 5000 units/ml) 5,000 units EVERY 12 HOURS SUBQ 02/16/17 21:00 03/18/17 20:59 02/23/17 08:40 Lansoprazole (Prevacid) 30 mg DAILY ORAL 02/19/17 15:00 03/21/17 14:59 02/23/17 08:39 Nitroglycerin (Ntg) 0.4 mg Every 5 Minutes PRN SL Prn Chest Pain 02/16/17 16:45 03/18/17 16:44 Ondansetron HCl (Zofran) 4 mg Q6H PRN IVP Nausea & Vomiting 02/16/17 16:45 03/18/17 16:44 Polyethylene Glycol (Miralax) 17 gm DAILYPRN PRN ORAL Constipation 02/16/17 16:45 03/18/17 16:44 Trimethoprim/ Sulfamethoxazole (Bactrim-DS) 1 ea DAILY ORAL 02/21/17 15:00 02/28/17 14:59 02/23/17 08:39 ISMA PEPE Feb 23, 2017 18:43
--- NOTE | 2017-02-23 18:46 | Pulmonology Progress Note ---
Assessment/Plan Problems: (1) Cellulitis (2) Decubitus ulcers (3) Venous stasis ulcer (4) ATN (acute tubular necrosis) Assessment/Plan no la s today continue the same iv bx wound care watch renal parameters f/u consultants recommendations placement Subjective ROS Limited/Unobtainable: No Constitutional: Reports: no symptoms HEENT: Repors: no symptoms Respiratory: Reports: no symptoms Allergies: Coded Allergies: No Known Allergies (Unverified , 02/11/17) Objective Last 24 Hour Vital Signs Date Time Temp Pulse Resp B/P (MAP) Pulse Ox O2 Delivery O2 Flow Rate FiO2 02/23/17 18:44 75 128/56 02/23/17 16:41 97.7 75 18 128/56 91 Room Air 02/23/17 12:00 97.3 67 21 133/66 92 Room Air 02/23/17 08:41 61 115/52 02/23/17 08:00 97.5 61 18 115/52 95 Room Air 02/23/17 07:12 65 18 Room Air 21 02/23/17 04:00 97.9 62 18 148/68 97 Room Air 02/23/17 00:10 97.7 62 20 114/49 92 Room Air 02/22/17 21:15 97.9 65 20 97/37 93 Room Air 02/22/17 21:08 68 18 Room Air 21 General Appearance: WD/WN, no acute distress HEENT: normocephalic Respiratory/Chest: lungs clear Cardiovascular: normal peripheral pulses Abdomen: soft, non tender Extremities: no clubbing 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 Current Medications Medications (Trade) Dose Ordered Sig/Luz Route PRN Reason Start Time Stop Time Status Last Admin Dose Admin Acetaminophen (Tylenol) 650 mg Q4H PRN ORAL fever 02/16/17 16:45 03/18/17 16:44 Acetaminophen/ Hydrocodone Bitart ([place] 5/325) 1 tab Q4H PRN ORAL Moderate Pain (Pain Scale 4-6) 02/22/17 11:00 03/01/17 10:59 02/22/17 15:43 Albuterol/ Ipratropium (DuoNeb 0.5-3(2.5)mg/3ml) 3 ml Q4H PRN HHN Shortness of Breath 02/19/17 11:00 02/24/17 10:59 Amlodipine Besylate (Norvasc) 5 mg BID ORAL 02/19/17 18:00 03/22/17 08:59 02/23/17 18:44 Ciprofloxacin (Cipro 250mg tab) 250 mg EVERY 12 HOURS ORAL 02/19/17 21:00 02/26/17 20:59 02/23/17 08:39 Clonidine HCl (Catapres) 0.1 mg Q6H PRN ORAL sbp above 160 02/19/17 10:45 03/21/17 10:44 Dextrose (Dextrose 50%) STAT PRN IV Hypoglycemia 02/16/17 16:45 03/18/17 16:44 Ergocalciferol (Drisdol) 50,000 intlu QWEEK ORAL 02/19/17 15:00 03/21/17 14:59 02/19/17 15:48 Folic Acid (Folate) 2 mg DAILY ORAL 02/19/17 15:00 03/21/17 14:59 02/23/17 08:39 Heparin Sodium (Porcine) (Heparin 5000 units/ml) 5,000 units EVERY 12 HOURS SUBQ 02/16/17 21:00 03/18/17 20:59 02/23/17 08:40 Lansoprazole (Prevacid) 30 mg DAILY ORAL 02/19/17 15:00 03/21/17 14:59 02/23/17 08:39 Nitroglycerin (Ntg) 0.4 mg Every 5 Minutes PRN SL Prn Chest Pain 02/16/17 16:45 03/18/17 16:44 Ondansetron HCl (Zofran) 4 mg Q6H PRN IVP Nausea & Vomiting 02/16/17 16:45 03/18/17 16:44 Polyethylene Glycol (Miralax) 17 gm DAILYPRN PRN ORAL Constipation 02/16/17 16:45 03/18/17 16:44 Trimethoprim/ Sulfamethoxazole (Bactrim-DS) 1 ea DAILY ORAL 02/21/17 15:00 02/28/17 14:59 02/23/17 08:39 ISMA PEPE Feb 23, 2017 18:46
[2017-02-24] VITALS: BP 126/54
[2017-02-24 06:46] LABS: BASOPHILS % (AUTO) 1.9 % (0.0-2.0); EOSINOPHILS % (AUTO) 6.5 % (0.0-3.0); LYMPHOCYTES % (AUTO) 27.8 % (20.0-45.0); MEAN CORPUSCULAR HEMOGLOBIN 28.1 PG (27.0-31.0); MEAN CORPUSCULAR HGB CONC 31.3 G/DL (32.0-36.0); MEAN CORPUSCULAR VOLUME 90 FL (80-99); MEAN PLATELET VOLUME 4.8 FL (6.5-10.1); MONOCYTES % (AUTO) 6.3 % (1.0-10.0); NEUTROPHILS % (AUTO) 57.6 % (45.0-75.0); PLATELET COUNT 474 K/UL (150-450); RED BLOOD COUNT 3.93 M/UL (4.20-5.40); RED CELL DISTRIBUTION WIDTH 19.3 % (11.6-14.8); WHITE BLOOD COUNT 9.3 K/UL (4.8-10.8)
[2017-02-24 08:14] VITALS: BP 156/74
[2017-02-24] MEDS: Bactrim DS (160mg/800mg) tab ORAL SCH (08:40)
[2017-02-24] MEDS: Heparin 5000 units/ml inj SUBQ SCH ×2 (08:41→21:35)
[2017-02-24 11:15] LABS: ALANINE AMINOTRANSFERASE 11 U/L (12-78); ALBUMIN/GLOBULIN RATIO 0.8 (1.0-2.7); ANION GAP 9 mmol/L (5-15); ASPARTATE AMINO TRANSFERASE 19 U/L (15-37); CALCIUM 9.3 MG/DL (8.5-10.1); CARBON DIOXIDE 25 MMOL/L (21-32); CHLORIDE 100 MMOL/L (98-107); CREATININE 1.6 MG/DL (0.55-1.30); GLOMERULAR FILTRATION RATE 32.4 mL/min (>60); MAGNESIUM 2.2 MG/DL (1.8-2.4); PHOSPHORUS 3.3 MG/DL (2.5-4.9); POTASSIUM 4.4 MMOL/L (3.5-5.1); SODIUM 134 MMOL/L (136-145); TOTAL PROTEIN 7.7 G/DL (6.4-8.2)
[2017-02-24 11:52] VITALS: BP 154/60
--- NOTE | 2017-02-24 12:17 | Infectious Diseases Prog Note ---
Assessment/Plan Assessment/Plan Assessment/Plan ASSESSMENT: 67 y/o female with: // Possible UTI - UCx :P. 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 Subjective Allergies: Coded Allergies: No Known Allergies (Unverified , 02/11/17) Subjective afebrile no leukocytosis Objective Vital Signs Last 24 Hour Vital Signs Date Time Temp Pulse Resp B/P (MAP) Pulse Ox O2 Delivery O2 Flow Rate FiO2 02/24/17 11:52 97.2 64 18 154/60 93 Room Air 02/24/17 08:40 56 156/74 02/24/17 08:39 56 18 Room Air 21 02/24/17 08:14 97.5 64 19 156/74 97 Room Air 02/24/17 00:00 97.3 63 18 126/54 92 Room Air 02/23/17 21:04 64 20 Room Air 21 02/23/17 20:00 97.2 64 19 118/54 95 Room Air 02/23/17 18:44 75 128/56 02/23/17 16:41 97.7 75 18 128/56 91 Room Air Height (Feet): 5 Height (Inches): 4.00 Weight (Pounds): 143 Objective General Appearance: no acute distress HEENT: mucous membranes moist Respiratory/Chest: lungs clear Cardiovascular: normal rate Abdomen: soft, non tender Extremities: no edema Skin: ulcers, other - erythema in posterior legs, ulcer on posterior thights Neurologic/Psychiatric: AAO3, no focal deficits Laboratory Tests Test 02/24/17 05:10 White Blood Count 9.3 K/UL (4.8-10.8) Red Blood Count 3.93 M/UL (4.20-5.40) L Hemoglobin 11.1 G/DL (12.0-16.0) L Hematocrit 35.3 % (37.0-47.0) L Mean Corpuscular Volume 90 FL (80-99) Mean Corpuscular Hemoglobin 28.1 PG (27.0-31.0) Mean Corpuscular Hemoglobin Concent 31.3 G/DL (32.0-36.0) L Red Cell Distribution Width 19.3 % (11.6-14.8) H Platelet Count 474 K/UL (150-450) H Mean Platelet Volume 4.8 FL (6.5-10.1) L Neutrophils (%) (Auto) 57.6 % (45.0-75.0) Lymphocytes (%) (Auto) 27.8 % (20.0-45.0) Monocytes (%) (Auto) 6.3 % (1.0-10.0) Eosinophils (%) (Auto) 6.5 % (0.0-3.0) H Basophils (%) (Auto) 1.9 % (0.0-2.0) Sodium Level 134 MMOL/L (136-145) L Potassium Level 4.4 MMOL/L (3.5-5.1) Chloride Level 100 MMOL/L (98-107) Carbon Dioxide Level 25 MMOL/L (21-32) Anion Gap 9 mmol/L (5-15) Blood Urea Nitrogen 22 mg/dL (7-18) H Creatinine 1.6 MG/DL (0.55-1.30) H Estimat Glomerular Filtration Rate 32.4 mL/min (>60) Glucose Level 113 MG/DL (74-106) H Calcium Level 9.3 MG/DL (8.5-10.1) Phosphorus Level 3.3 MG/DL (2.5-4.9) Magnesium Level 2.2 MG/DL (1.8-2.4) Total Bilirubin 0.2 MG/DL (0.2-1.0) Aspartate Amino Transf (AST/SGOT) 19 U/L (15-37) Alanine Aminotransferase (ALT/SGPT) 11 U/L (12-78) L Alkaline Phosphatase 93 U/L (46-116) Total Protein 7.7 G/DL (6.4-8.2) Albumin 3.3 G/DL (3.4-5.0) L Globulin 4.4 g/dL Albumin/Globulin Ratio 0.8 (1.0-2.7) L Current Medications Medications (Trade) Dose Ordered Sig/Luz Route PRN Reason Start Time Stop Time Status Last Admin Dose Admin Acetaminophen (Tylenol) 650 mg Q4H PRN ORAL fever 02/16/17 16:45 03/18/17 16:44 Acetaminophen/ Hydrocodone Bitart ([place] 5/325) 1 tab Q4H PRN ORAL Moderate Pain (Pain Scale 4-6) 02/22/17 11:00 03/01/17 10:59 02/22/17 15:43 Amlodipine Besylate (Norvasc) 5 mg BID ORAL 02/19/17 18:00 03/22/17 08:59 02/24/17 08:40 Ciprofloxacin (Cipro 250mg tab) 250 mg EVERY 12 HOURS ORAL 02/19/17 21:00 02/26/17 20:59 02/24/17 08:40 Clonidine HCl (Catapres) 0.1 mg Q6H PRN ORAL sbp above 160 02/19/17 10:45 03/21/17 10:44 Dextrose (Dextrose 50%) STAT PRN IV Hypoglycemia 02/16/17 16:45 03/18/17 16:44 Ergocalciferol (Drisdol) 50,000 intlu QWEEK ORAL 02/19/17 15:00 03/21/17 14:59 02/19/17 15:48 Folic Acid (Folate) 2 mg DAILY ORAL 02/19/17 15:00 03/21/17 14:59 02/24/17 08:40 Heparin Sodium (Porcine) (Heparin 5000 units/ml) 5,000 units EVERY 12 HOURS SUBQ 02/16/17 21:00 03/18/17 20:59 02/24/17 08:41 Lansoprazole (Prevacid) 30 mg DAILY ORAL 02/19/17 15:00 03/21/17 14:59 02/24/17 08:40 Nitroglycerin (Ntg) 0.4 mg Every 5 Minutes PRN SL Prn Chest Pain 02/16/17 16:45 03/18/17 16:44 Ondansetron HCl (Zofran) 4 mg Q6H PRN IVP Nausea & Vomiting 02/16/17 16:45 03/18/17 16:44 Polyethylene Glycol (Miralax) 17 gm DAILYPRN PRN ORAL Constipation 02/16/17 16:45 03/18/17 16:44 Trimethoprim/ Sulfamethoxazole (Bactrim-DS) 1 ea DAILY ORAL 02/21/17 15:00 02/28/17 14:59 02/24/17 08:40 Es Tian M.D. Feb 24, 2017 12:17
--- NOTE | 2017-02-24 12:34 | General Progress Note ---
Assessment/Plan Status Narrative r sabino 1.6- On Bactrim Assessment/Plan UTI Bilateral posterior thigh chronic nonhealing ulcers Venous stasis ulcers, bilateral, chronic, nonhealing ARF on CKD Obesity homeless anemia w/chair bound Plan; one liter saline Monitor renal parameters- Add Norvasc for better BP control. adjust dose Avoid nephrotoxics Iron and B12 and gastric support DC planning? Subjective ROS Limited/Unobtainable: No Constitutional: Reports: malaise Allergies: Coded Allergies: No Known Allergies (Unverified , 02/11/17) Objective Last 24 Hour Vital Signs Date Time Temp Pulse Resp B/P (MAP) Pulse Ox O2 Delivery O2 Flow Rate FiO2 02/24/17 11:52 97.2 64 18 154/60 93 Room Air 02/24/17 08:40 56 156/74 02/24/17 08:39 56 18 Room Air 21 02/24/17 08:14 97.5 64 19 156/74 97 Room Air 02/24/17 00:00 97.3 63 18 126/54 92 Room Air 02/23/17 21:04 64 20 Room Air 21 02/23/17 20:00 97.2 64 19 118/54 95 Room Air 02/23/17 18:44 75 128/56 02/23/17 16:41 97.7 75 18 128/56 91 Room Air Laboratory Tests 02/24/17 05:10: White Blood Count 9.3, Red Blood Count 3.93L, Hemoglobin 11.1L, Hematocrit 35.3L , Mean Corpuscular Volume 90, Mean Corpuscular Hemoglobin 28.1, Mean Corpuscular Hemoglobin Concent 31.3L, Red Cell Distribution Width 19.3H, Platelet Count 474H, Mean Platelet Volume 4.8L, Neutrophils (%) (Auto) 57.6, Lymphocytes (%) (Auto) 27.8, Monocytes (%) (Auto) 6.3, Eosinophils (%) (Auto) 6.5H, Basophils (%) (Auto) 1.9, Sodium Level 134L, Potassium Level 4.4, Chloride Level 100, Carbon Dioxide Level 25, Anion Gap 9, Blood Urea Nitrogen 22H, Creatinine 1.6H, Estimat Glomerular Filtration Rate 32.4, Glucose Level 113H, Calcium Level 9.3, Phosphorus Level 3.3, Magnesium Level 2.2, Total Bilirubin 0.2, Aspartate Amino Transf (AST/SGOT) 19, Alanine Aminotransferase ( ALT/SGPT) 11L, Alkaline Phosphatase 93, Total Protein 7.7, Albumin 3.3L, Globulin 4.4, Albumin/Globulin Ratio 0.8L Height (Feet): 5 Height (Inches): 4.00 Weight (Pounds): 143 General Appearance: no apparent distress Objective PE not changed EFRA BRODY Feb 24, 2017 12:34
[2017-02-24 16:00] VITALS: BP 120/49
[2017-02-24] MEDS: Norco 5mg/325mg tab ORAL PRN (18:12)
--- NOTE | 2017-02-24 19:16 | Pulmonology Progress Note ---
Assessment/Plan Problems: (1) Cellulitis (2) Decubitus ulcers (3) Venous stasis ulcer (4) ATN (acute tubular necrosis) Assessment/Plan continue the same iv bx wound care watch renal parameters f/u consultants recommendations placement Subjective ROS Limited/Unobtainable: No Constitutional: Reports: no symptoms HEENT: Repors: no symptoms Respiratory: Reports: no symptoms Allergies: Coded Allergies: No Known Allergies (Unverified , 02/11/17) Objective Last 24 Hour Vital Signs Date Time Temp Pulse Resp B/P (MAP) Pulse Ox O2 Delivery O2 Flow Rate FiO2 02/24/17 18:00 58 120/49 02/24/17 16:00 97.5 58 17 120/49 Room Air 02/24/17 11:52 97.2 64 18 154/60 93 Room Air 02/24/17 08:40 56 156/74 02/24/17 08:39 56 18 Room Air 21 02/24/17 08:14 97.5 64 19 156/74 97 Room Air 02/24/17 00:00 97.3 63 18 126/54 92 Room Air 02/23/17 21:04 64 20 Room Air 21 02/23/17 20:00 97.2 64 19 118/54 95 Room Air General Appearance: WD/WN HEENT: normocephalic, atraumatic Respiratory/Chest: chest wall non-tender, lungs clear Breasts: no masses Cardiovascular: normal peripheral pulses Abdomen: normal bowel sounds, soft, non tender Genitourinary: normal external genitalia Extremities: no clubbing 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 Laboratory Tests 02/24/17 05:10: White Blood Count 9.3, Red Blood Count 3.93L, Hemoglobin 11.1L, Hematocrit 35.3L , Mean Corpuscular Volume 90, Mean Corpuscular Hemoglobin 28.1, Mean Corpuscular Hemoglobin Concent 31.3L, Red Cell Distribution Width 19.3H, Platelet Count 474H, Mean Platelet Volume 4.8L, Neutrophils (%) (Auto) 57.6, Lymphocytes (%) (Auto) 27.8, Monocytes (%) (Auto) 6.3, Eosinophils (%) (Auto) 6.5H, Basophils (%) (Auto) 1.9, Sodium Level 134L, Potassium Level 4.4, Chloride Level 100, Carbon Dioxide Level 25, Anion Gap 9, Blood Urea Nitrogen 22H, Creatinine 1.6H, Estimat Glomerular Filtration Rate 32.4, Glucose Level 113H, Calcium Level 9.3, Phosphorus Level 3.3, Magnesium Level 2.2, Total Bilirubin 0.2, Aspartate Amino Transf (AST/SGOT) 19, Alanine Aminotransferase ( ALT/SGPT) 11L, Alkaline Phosphatase 93, Total Protein 7.7, Albumin 3.3L, Globulin 4.4, Albumin/Globulin Ratio 0.8L Current Medications Medications (Trade) Dose Ordered Sig/Luz Route PRN Reason Start Time Stop Time Status Last Admin Dose Admin Acetaminophen (Tylenol) 650 mg Q4H PRN ORAL fever 02/16/17 16:45 03/18/17 16:44 Acetaminophen/ Hydrocodone Bitart ([place] 5/325) 1 tab Q4H PRN ORAL Moderate Pain (Pain Scale 4-6) 02/22/17 11:00 03/01/17 10:59 02/24/17 18:12 Amlodipine Besylate (Norvasc) 5 mg BID ORAL 02/19/17 18:00 03/22/17 08:59 02/24/17 08:40 Ciprofloxacin (Cipro 250mg tab) 250 mg EVERY 12 HOURS ORAL 02/19/17 21:00 02/26/17 20:59 02/24/17 08:40 Clonidine HCl (Catapres) 0.1 mg Q6H PRN ORAL sbp above 160 02/19/17 10:45 03/21/17 10:44 Dextrose (Dextrose 50%) STAT PRN IV Hypoglycemia 02/16/17 16:45 03/18/17 16:44 Ergocalciferol (Drisdol) 50,000 intlu QWEEK ORAL 02/19/17 15:00 03/21/17 14:59 02/19/17 15:48 Folic Acid (Folate) 2 mg DAILY ORAL 02/19/17 15:00 03/21/17 14:59 02/24/17 08:40 Heparin Sodium (Porcine) (Heparin 5000 units/ml) 5,000 units EVERY 12 HOURS SUBQ 02/16/17 21:00 03/18/17 20:59 02/24/17 08:41 Lansoprazole (Prevacid) 30 mg DAILY ORAL 02/19/17 15:00 03/21/17 14:59 02/24/17 08:40 Nitroglycerin (Ntg) 0.4 mg Every 5 Minutes PRN SL Prn Chest Pain 02/16/17 16:45 03/18/17 16:44 Ondansetron HCl (Zofran) 4 mg Q6H PRN IVP Nausea & Vomiting 02/16/17 16:45 03/18/17 16:44 Polyethylene Glycol (Miralax) 17 gm DAILYPRN PRN ORAL Constipation 02/16/17 16:45 03/18/17 16:44 Sodium Chloride 1,000 ml @ 100 mls/hr Q10H IV 02/24/17 12:45 02/24/17 22:44 02/24/17 15:09 Trimethoprim/ Sulfamethoxazole (Bactrim-DS) 1 ea DAILY ORAL 02/21/17 15:00 02/28/17 14:59 02/24/17 08:40 ISMA PEPE Feb 24, 2017 19:16
[2017-02-24 20:18] VITALS: BP 148/60
[2017-02-25 00:27] VITALS: BP 135/63
[2017-02-25 04:00] VITALS: BP 137/62
[2017-02-25 07:45] LABS: BASOPHILS % (AUTO) 1.7 % (0.0-2.0); LYMPHOCYTES % (AUTO) 27.3 % (20.0-45.0); MEAN CORPUSCULAR HEMOGLOBIN 28.1 PG (27.0-31.0); MEAN CORPUSCULAR HGB CONC 31.5 G/DL (32.0-36.0); MEAN CORPUSCULAR VOLUME 89 FL (80-99); MEAN PLATELET VOLUME 4.6 FL (6.5-10.1); MONOCYTES % (AUTO) 5.8 % (1.0-10.0); NEUTROPHILS % (AUTO) 57.3 % (45.0-75.0); PLATELET COUNT 491 K/UL (150-450); RED BLOOD COUNT 3.67 M/UL (4.20-5.40); RED CELL DISTRIBUTION WIDTH 19.3 % (11.6-14.8); WHITE BLOOD COUNT 9.1 K/UL (4.8-10.8)
[2017-02-25 08:00] VITALS: BP 145/65
[2017-02-25 08:02] LABS: ALANINE AMINOTRANSFERASE 13 U/L (12-78); ALBUMIN/GLOBULIN RATIO 0.7 (1.0-2.7); ANION GAP 7 mmol/L (5-15); ASPARTATE AMINO TRANSFERASE 22 U/L (15-37); CALCIUM 9.3 MG/DL (8.5-10.1); CARBON DIOXIDE 27 MMOL/L (21-32); CHLORIDE 101 MMOL/L (98-107); CREATININE 1.8 MG/DL (0.55-1.30); GLOMERULAR FILTRATION RATE 28.3 mL/min (>60); MAGNESIUM 2.2 MG/DL (1.8-2.4); PHOSPHORUS 3.7 MG/DL (2.5-4.9); POTASSIUM 4.8 MMOL/L (3.5-5.1); SODIUM 135 MMOL/L (136-145); TOTAL PROTEIN 7.6 G/DL (6.4-8.2); URIC ACID 4.7 MG/DL (2.6-7.2)
--- NOTE | 2017-02-25 09:33 | Pulmonology Progress Note ---
Assessment/Plan Assessment/Plan ASSESSMENT UTI Bilateral posterior thigh chronic nonhealing ulcers Venous stasis ulcers, bilateral, chronic, nonhealing ARF on CKD HTN urgency Obesity homeless anemia w/chair bound PLAN OF CARE MS floor Abx, changed to po ID follows Venous Duplex BLE wound care as per wound nurse recommendations Renal US no hydro, normal echogenicity bilaterally monitor renal parameters, lytes, avoid nephrotoxics creat at the same range nephro follows continue CCB, and Clonidine prn random vanco level was ok Pain management DVT prophylaxis bowel regimen SS eval for placement PT/OT eval Anemia w/up noted, monitor counts, transfuse prn dc plan, will benefit from SNF for wound care if insurance allowed case discussed and evaluated by supervising physician Subjective Allergies: Coded Allergies: No Known Allergies (Unverified , 02/11/17) Subjective afebrile, no leukocytosis on abx awaiting for placement Objective Last 24 Hour Vital Signs Date Time Temp Pulse Resp B/P (MAP) Pulse Ox O2 Delivery O2 Flow Rate FiO2 02/25/17 08:34 57 18 Room Air 21 02/25/17 08:00 97.9 60 18 145/65 98 Room Air 02/25/17 04:00 97.0 68 20 137/62 100 Room Air 02/25/17 00:27 97.5 62 17 135/63 92 Room Air 02/24/17 21:25 69 18 Room Air 21 02/24/17 20:18 97.3 58 19 148/60 94 Room Air 02/24/17 18:00 58 120/49 02/24/17 16:00 97.5 58 17 120/49 Room Air 02/24/17 11:52 97.2 64 18 154/60 93 Room Air Objective General Appearance: no acute distress, awake, alert, female w/chair bound HEENT: normocephalic, atraumatic, anicteric, mucous membranes moist, PERRL Respiratory/Chest: chest wall non-tender, normal breath sounds Cardiovascular: normal rate, regular rhythm, no JVD Abdomen: normal bowel sounds, soft, non tender - obese Extremities: no edema Skin: other - chronic venous stasis ulcers and posterior thigh ulcers Neurologic/Psychiatric: w/c bound , alert, responsive Musculoskeletal: atrophy BLE Laboratory Tests 02/25/17 06:00: White Blood Count 9.1, Red Blood Count 3.67L, Hemoglobin 10.3L, Hematocrit 32.7L , Mean Corpuscular Volume 89, Mean Corpuscular Hemoglobin 28.1, Mean Corpuscular Hemoglobin Concent 31.5L, Red Cell Distribution Width 19.3H, Platelet Count 491H, Mean Platelet Volume 4.6L, Neutrophils (%) (Auto) 57.3, Lymphocytes (%) (Auto) 27.3, Monocytes (%) (Auto) 5.8, Eosinophils (%) (Auto) 8.0H, Basophils (%) (Auto) 1.7, Sodium Level 135L, Potassium Level 4.8, Chloride Level 101, Carbon Dioxide Level 27, Anion Gap 7, Blood Urea Nitrogen 24H, Creatinine 1.8H, Estimat Glomerular Filtration Rate 28.3, Glucose Level 80 , Uric Acid 4.7, Calcium Level 9.3, Phosphorus Level 3.7, Magnesium Level 2.2, Total Bilirubin 0.2, Aspartate Amino Transf (AST/SGOT) 22, Alanine Aminotransferase (ALT/SGPT) 13, Alkaline Phosphatase 92, Total Protein 7.6, Albumin 3.2L, Globulin 4.4, Albumin/Globulin Ratio 0.7L Current Medications Medications (Trade) Dose Ordered Sig/Luz Route PRN Reason Start Time Stop Time Status Last Admin Dose Admin Acetaminophen (Tylenol) 650 mg Q4H PRN ORAL fever 02/16/17 16:45 03/18/17 16:44 Acetaminophen/ Hydrocodone Bitart ([place] 5/325) 1 tab Q4H PRN ORAL Moderate Pain (Pain Scale 4-6) 02/22/17 11:00 03/01/17 10:59 02/24/17 18:12 Amlodipine Besylate (Norvasc) 5 mg BID ORAL 02/19/17 18:00 03/22/17 08:59 02/24/17 08:40 Ciprofloxacin (Cipro 250mg tab) 250 mg EVERY 12 HOURS ORAL 02/19/17 21:00 02/26/17 20:59 02/24/17 21:34 Clonidine HCl (Catapres) 0.1 mg Q6H PRN ORAL sbp above 160 02/19/17 10:45 03/21/17 10:44 Dextrose (Dextrose 50%) STAT PRN IV Hypoglycemia 02/16/17 16:45 03/18/17 16:44 Ergocalciferol (Drisdol) 50,000 intlu QWEEK ORAL 02/19/17 15:00 03/21/17 14:59 02/19/17 15:48 Folic Acid (Folate) 2 mg DAILY ORAL 02/19/17 15:00 03/21/17 14:59 02/24/17 08:40 Heparin Sodium (Porcine) (Heparin 5000 units/ml) 5,000 units EVERY 12 HOURS SUBQ 02/16/17 21:00 03/18/17 20:59 02/24/17 21:35 Lansoprazole (Prevacid) 30 mg DAILY ORAL 02/19/17 15:00 03/21/17 14:59 02/24/17 08:40 Nitroglycerin (Ntg) 0.4 mg Every 5 Minutes PRN SL Prn Chest Pain 02/16/17 16:45 03/18/17 16:44 Ondansetron HCl (Zofran) 4 mg Q6H PRN IVP Nausea & Vomiting 02/16/17 16:45 03/18/17 16:44 Polyethylene Glycol (Miralax) 17 gm DAILYPRN PRN ORAL Constipation 02/16/17 16:45 03/18/17 16:44 Trimethoprim/ Sulfamethoxazole (Bactrim-DS) 1 ea DAILY ORAL 02/21/17 15:00 02/28/17 14:59 02/24/17 08:40 Michael EllisCamila lovelace NP Feb 25, 2017 09:33
[2017-02-25] MEDS: Bactrim DS (160mg/800mg) tab ORAL SCH (09:37)
[2017-02-25] MEDS: Heparin 5000 units/ml inj SUBQ SCH ×2 (09:45→21:00)
--- NOTE | 2017-02-25 09:49 | Infectious Diseases Prog Note ---
Assessment/Plan Assessment/Plan Assessment/Plan ASSESSMENT: 67 y/o female with: // Possible UTI - UCx :P. mirabilis, Ecoli (S Cipro) // Chronic nonhealing bilateral posterior thigh ulcers ( >3yrs ) - WCx :MRSA, with surrounding cellultis // Chronic nonhealing BLE venous stasis ulcers - WCx MRSA, PsA (Cipro S) // Afebrile without leukocytosis // Renal insufficiency ?acute vs chronic- worsening // Thrombocytosis // Obesity // Homelessness // Wheelchair bound // NKDA // Full Code PLAN: -Switch PO bactrim DS abx d#02/12 to Clindamycin 300mg tid (given increase Cr) for cellulitis -Continue Cipro (renally dosed) abx #02/12 for cellulitis and UTI -s/p 6d IV Vancomycin 02/21 -s/p 3d IV Cefepime 02/19 - monitor CBC, temperatures - monitor BMP - wound care Discussed with RN and Dr Kilgore Subjective Allergies: Coded Allergies: No Known Allergies (Unverified , 02/11/17) Subjective afebrile no leukocytosis worsenign Cr Objective Vital Signs Last 24 Hour Vital Signs Date Time Temp Pulse Resp B/P (MAP) Pulse Ox O2 Delivery O2 Flow Rate FiO2 02/25/17 08:34 57 18 Room Air 02/25/17 08:00 97.9 60 18 145/65 98 Room Air 02/25/17 04:00 97.0 68 20 137/62 100 Room Air 02/25/17 00:27 97.5 62 17 135/63 92 Room Air 02/24/17 21:25 69 18 Room Air 21 02/24/17 20:18 97.3 58 19 148/60 94 Room Air 02/24/17 18:00 58 120/49 02/24/17 16:00 97.5 58 17 120/49 Room Air 02/24/17 11:52 97.2 64 18 154/60 93 Room Air Height (Feet): 5 Height (Inches): 4.00 Weight (Pounds): 143 Objective General Appearance: no acute distress HEENT: mucous membranes moist Respiratory/Chest: lungs clear Cardiovascular: normal rate Abdomen: soft, non tender Extremities: no edema Skin: ulcers, other - erythema in posterior legs, ulcer on posterior thights Neurologic/Psychiatric: AAO3, no focal deficits reviewed Laboratory Tests Test 02/25/17 06:00 White Blood Count 9.1 K/UL (4.8-10.8) Red Blood Count 3.67 M/UL (4.20-5.40) L Hemoglobin 10.3 G/DL (12.0-16.0) L Hematocrit 32.7 % (37.0-47.0) L Mean Corpuscular Volume 89 FL (80-99) Mean Corpuscular Hemoglobin 28.1 PG (27.0-31.0) Mean Corpuscular Hemoglobin Concent 31.5 G/DL (32.0-36.0) L Red Cell Distribution Width 19.3 % (11.6-14.8) H Platelet Count 491 K/UL (150-450) H Mean Platelet Volume 4.6 FL (6.5-10.1) L Neutrophils (%) (Auto) 57.3 % (45.0-75.0) Lymphocytes (%) (Auto) 27.3 % (20.0-45.0) Monocytes (%) (Auto) 5.8 % (1.0-10.0) Eosinophils (%) (Auto) 8.0 % (0.0-3.0) H Basophils (%) (Auto) 1.7 % (0.0-2.0) Sodium Level 135 MMOL/L (136-145) L Potassium Level 4.8 MMOL/L (3.5-5.1) Chloride Level 101 MMOL/L (98-107) Carbon Dioxide Level 27 MMOL/L (21-32) Anion Gap 7 mmol/L (5-15) Blood Urea Nitrogen 24 mg/dL (7-18) H Creatinine 1.8 MG/DL (0.55-1.30) H Estimat Glomerular Filtration Rate 28.3 mL/min (>60) Glucose Level 80 MG/DL (74-106) Uric Acid 4.7 MG/DL (2.6-7.2) Calcium Level 9.3 MG/DL (8.5-10.1) Phosphorus Level 3.7 MG/DL (2.5-4.9) Magnesium Level 2.2 MG/DL (1.8-2.4) Total Bilirubin 0.2 MG/DL (0.2-1.0) Aspartate Amino Transf (AST/SGOT) 22 U/L (15-37) Alanine Aminotransferase (ALT/SGPT) 13 U/L (12-78) Alkaline Phosphatase 92 U/L (46-116) Total Protein 7.6 G/DL (6.4-8.2) Albumin 3.2 G/DL (3.4-5.0) L Globulin 4.4 g/dL Albumin/Globulin Ratio 0.7 (1.0-2.7) L Current Medications Medications (Trade) Dose Ordered Sig/Luz Route PRN Reason Start Time Stop Time Status Last Admin Dose Admin Acetaminophen (Tylenol) 650 mg Q4H PRN ORAL fever 02/16/17 16:45 03/18/17 16:44 Acetaminophen/ Hydrocodone Bitart ([place] 5/325) 1 tab Q4H PRN ORAL Moderate Pain (Pain Scale 4-6) 02/22/17 11:00 03/01/17 10:59 02/24/17 18:12 Amlodipine Besylate (Norvasc) 5 mg BID ORAL 02/19/17 18:00 03/22/17 08:59 02/24/17 08:40 Ciprofloxacin (Cipro 250mg tab) 250 mg EVERY 12 HOURS ORAL 02/19/17 21:00 02/26/17 20:59 02/24/17 21:34 Clonidine HCl (Catapres) 0.1 mg Q6H PRN ORAL sbp above 160 02/19/17 10:45 03/21/17 10:44 Dextrose (Dextrose 50%) STAT PRN IV Hypoglycemia 02/16/17 16:45 03/18/17 16:44 Ergocalciferol (Drisdol) 50,000 intlu QWEEK ORAL 02/19/17 15:00 03/21/17 14:59 02/19/17 15:48 Folic Acid (Folate) 2 mg DAILY ORAL 02/19/17 15:00 03/21/17 14:59 02/24/17 08:40 Heparin Sodium (Porcine) (Heparin 5000 units/ml) 5,000 units EVERY 12 HOURS SUBQ 02/16/17 21:00 03/18/17 20:59 02/24/17 21:35 Lansoprazole (Prevacid) 30 mg DAILY ORAL 02/19/17 15:00 03/21/17 14:59 02/24/17 08:40 Nitroglycerin (Ntg) 0.4 mg Every 5 Minutes PRN SL Prn Chest Pain 02/16/17 16:45 03/18/17 16:44 Ondansetron HCl (Zofran) 4 mg Q6H PRN IVP Nausea & Vomiting 02/16/17 16:45 03/18/17 16:44 Polyethylene Glycol (Miralax) 17 gm DAILYPRN PRN ORAL Constipation 02/16/17 16:45 03/18/17 16:44 Trimethoprim/ Sulfamethoxazole (Bactrim-DS) 1 ea DAILY ORAL 02/21/17 15:00 02/28/17 14:59 02/24/17 08:40 Es Tian M.D. Feb 25, 2017 09:49
--- NOTE | 2017-02-25 11:14 | General Progress Note ---
Assessment/Plan Status: unchanged Status Narrative Cr rising Assessment/Plan UTI Bilateral posterior thigh chronic nonhealing ulcers Venous stasis ulcers, bilateral, chronic, nonhealing ARF on CKD Obesity homeless anemia w/chair bound Plan; one liter saline again Consider DC Bactrim and Cipro per ID??? ( Cr rising) Monitor renal parameters- Add Norvasc for better BP control. adjust dose Avoid nephrotoxics Iron and B12 and gastric support DC planning? Subjective ROS Limited/Unobtainable: No Constitutional: Reports: malaise Allergies: Coded Allergies: No Known Allergies (Unverified , 02/11/17) Objective Last 24 Hour Vital Signs Date Time Temp Pulse Resp B/P (MAP) Pulse Ox O2 Delivery O2 Flow Rate FiO2 02/25/17 09:37 57 145/65 02/25/17 08:34 57 18 Room Air 21 02/25/17 08:00 97.9 60 18 145/65 98 Room Air 02/25/17 04:00 97.0 68 20 137/62 100 Room Air 02/25/17 00:27 97.5 62 17 135/63 92 Room Air 02/24/17 21:25 69 18 Room Air 21 02/24/17 20:18 97.3 58 19 148/60 94 Room Air 02/24/17 18:00 58 120/49 02/24/17 16:00 97.5 58 17 120/49 Room Air 02/24/17 11:52 97.2 64 18 154/60 93 Room Air Intake and Output 02/25/17 02/26/17 19:00 07:00 # Bowel Movements 1 Laboratory Tests 02/25/17 06:00: White Blood Count 9.1, Red Blood Count 3.67L, Hemoglobin 10.3L, Hematocrit 32.7L , Mean Corpuscular Volume 89, Mean Corpuscular Hemoglobin 28.1, Mean Corpuscular Hemoglobin Concent 31.5L, Red Cell Distribution Width 19.3H, Platelet Count 491H, Mean Platelet Volume 4.6L, Neutrophils (%) (Auto) 57.3, Lymphocytes (%) (Auto) 27.3, Monocytes (%) (Auto) 5.8, Eosinophils (%) (Auto) 8.0H, Basophils (%) (Auto) 1.7, Sodium Level 135L, Potassium Level 4.8, Chloride Level 101, Carbon Dioxide Level 27, Anion Gap 7, Blood Urea Nitrogen 24H, Creatinine 1.8H, Estimat Glomerular Filtration Rate 28.3, Glucose Level 80 , Uric Acid 4.7, Calcium Level 9.3, Phosphorus Level 3.7, Magnesium Level 2.2, Total Bilirubin 0.2, Aspartate Amino Transf (AST/SGOT) 22, Alanine Aminotransferase (ALT/SGPT) 13, Alkaline Phosphatase 92, Total Protein 7.6, Albumin 3.2L, Globulin 4.4, Albumin/Globulin Ratio 0.7L Height (Feet): 5 Height (Inches): 4.00 Weight (Pounds): 143 General Appearance: no apparent distress Objective PE not changed EFRA BRODY Feb 25, 2017 11:14
[2017-02-25 12:00] VITALS: BP 157/55
[2017-02-25] MEDS: Norco 5mg/325mg tab ORAL PRN (15:27)
[2017-02-25 20:00] VITALS: BP 123/50
[2017-02-26 04:00] VITALS: BP 133/54
[2017-02-26] MEDS: Clindamycin 150mg cap ORAL SCH ×3 (06:00→20:44)
[2017-02-26] MEDS: Levothyroxine 25mcg tab ORAL SCH (06:01)
[2017-02-26 08:00] VITALS: BP 152/85
--- NOTE | 2017-02-26 10:13 | Infectious Diseases Prog Note ---
Assessment/Plan Assessment/Plan Assessment/Plan ASSESSMENT: 67 y/o female with: // Possible UTI - UCx :P. 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 bactrim related- bactrim d /c'ed 02/25 // Thrombocytosis // Obesity // Homelessness // Wheelchair bound // NKDA // Full Code PLAN: -Continue Clindamycin 300mg tid abx d#03/15 for cellulitis -Continue Cipro (renally dosed) abx #03/15 for cellulitis and UTI -s/p 4d Bactrim 02/25 -s/p 6d IV Vancomycin 02/21 -s/p 3d IV Cefepime 02/19 - monitor CBC, temperatures - monitor BMP; trend creatinine - wound care Discussed with RN, Subjective Allergies: Coded Allergies: No Known Allergies (Unverified , 02/11/17) Subjective afebrile no labs today so far Objective Vital Signs Last 24 Hour Vital Signs Date Time Temp Pulse Resp B/P (MAP) Pulse Ox O2 Delivery O2 Flow Rate FiO2 02/26/17 08:03 57 16 Room Air 21 02/26/17 08:00 98.1 67 19 152/85 93 Room Air 02/26/17 04:00 97.5 55 21 133/54 97 Room Air 02/25/17 20:00 97.5 55 20 123/50 93 Room Air 02/25/17 19:29 54 18 Room Air 21 02/25/17 18:24 60 157/55 02/25/17 16:26 97.7 02/25/17 12:00 97.7 60 18 157/55 96 Room Air Height (Feet): 5 Height (Inches): 4.00 Weight (Pounds): 143 Objective General Appearance: no acute distress HEENT: mucous membranes moist Respiratory/Chest: lungs clear Cardiovascular: normal rate Abdomen: soft, non tender Extremities: no edema Skin: ulcers, other - erythema in posterior legs, ulcer on posterior thights Neurologic/Psychiatric: AAO3, no focal deficits reviewed reviewed Current Medications Medications (Trade) Dose Ordered Sig/Luz Route PRN Reason Start Time Stop Time Status Last Admin Dose Admin Acetaminophen (Tylenol) 650 mg Q4H PRN ORAL fever 02/16/17 16:45 03/18/17 16:44 Acetaminophen/ Hydrocodone Bitart ([place] 5/325) 1 tab Q4H PRN ORAL Moderate Pain (Pain Scale 4-6) 02/22/17 11:00 03/01/17 10:59 02/25/17 15:27 Amlodipine Besylate (Norvasc) 5 mg BID ORAL 02/19/17 18:00 03/22/17 08:59 02/25/17 18:24 Ciprofloxacin (Cipro 250mg tab) 250 mg EVERY 12 HOURS ORAL 02/19/17 21:00 02/26/17 20:59 02/25/17 22:25 Clindamycin HCl (Cleocin) 300 mg Q8HR ORAL 02/26/17 06:00 03/05/17 05:59 02/26/17 06:00 Clonidine HCl (Catapres) 0.1 mg Q6H PRN ORAL sbp above 160 02/19/17 10:45 03/21/17 10:44 Dextrose (Dextrose 50%) STAT PRN IV Hypoglycemia 02/16/17 16:45 03/18/17 16:44 Ergocalciferol (Drisdol) 50,000 intlu QWEEK ORAL 02/19/17 15:00 03/21/17 14:59 02/19/17 15:48 Folic Acid (Folate) 2 mg DAILY ORAL 02/19/17 15:00 03/21/17 14:59 02/25/17 09:37 Heparin Sodium (Porcine) (Heparin 5000 units/ml) 5,000 units EVERY 12 HOURS SUBQ 02/16/17 21:00 03/18/17 20:59 02/25/17 09:45 Lansoprazole (Prevacid) 30 mg DAILY ORAL 02/19/17 15:00 03/21/17 14:59 02/25/17 09:37 Levothyroxine Sodium (Synthroid) 25 mcg ACBREAKFAST ORAL 02/26/17 06:30 03/28/17 06:29 02/26/17 06:01 Nitroglycerin (Ntg) 0.4 mg Every 5 Minutes PRN SL Prn Chest Pain 02/16/17 16:45 03/18/17 16:44 Ondansetron HCl (Zofran) 4 mg Q6H PRN IVP Nausea & Vomiting 02/16/17 16:45 03/18/17 16:44 Polyethylene Glycol (Miralax) 17 gm DAILYPRN PRN ORAL Constipation 02/16/17 16:45 03/18/17 16:44 Es Tian M.D. Feb 26, 2017 10:13
[2017-02-26] MEDS: Heparin 5000 units/ml inj SUBQ SCH ×2 (10:19→20:49)
--- NOTE | 2017-02-26 11:58 | General Progress Note ---
Assessment/Plan Status: unchanged Status Narrative no labs today- Assessment/Plan UTI Bilateral posterior thigh chronic nonhealing ulcers Venous stasis ulcers, bilateral, chronic, nonhealing ARF on CKD Obesity homeless anemia w/chair bound Plan; IV 75 h check labs in am- Consider DC Bactrim and Cipro per ID??? ( Cr rising) Monitor renal parameters- Add Norvasc for better BP control. adjust dose Avoid nephrotoxics Iron and B12 and gastric support DC planning? Subjective ROS Limited/Unobtainable: No Constitutional: Reports: malaise, weakness Allergies: Coded Allergies: No Known Allergies (Unverified , 02/11/17) Objective Last 24 Hour Vital Signs Date Time Temp Pulse Resp B/P (MAP) Pulse Ox O2 Delivery O2 Flow Rate FiO2 02/26/17 09:00 57 152/85 02/26/17 08:03 57 16 Room Air 21 02/26/17 08:00 98.1 67 19 152/85 93 Room Air 02/26/17 04:00 97.5 55 21 133/54 97 Room Air 02/25/17 20:00 97.5 55 20 123/50 93 Room Air 02/25/17 19:29 54 18 Room Air 21 02/25/17 18:24 60 157/55 02/25/17 16:26 97.7 02/25/17 12:00 97.7 60 18 157/55 96 Room Air Intake and Output 02/26/17 02/27/17 19:00 07:00 # Bowel Movements 1 Height (Feet): 5 Height (Inches): 4.00 Weight (Pounds): 143 General Appearance: no apparent distress Objective PE not changed EFRA BRODY Feb 26, 2017 11:58
[2017-02-26 12:00] VITALS: BP 141/59
[2017-02-26] MEDS: Norco 5mg/325mg tab ORAL PRN (12:50)
--- NOTE | 2017-02-26 13:17 | Pulmonology Progress Note ---
Assessment/Plan Problems: (1) Cellulitis (2) Decubitus ulcers (3) Venous stasis ulcer (4) ATN (acute tubular necrosis) Assessment/Plan pt is noncomplianst continue the same wound care watch renal parameters f/u consultants recommendations placement Subjective ROS Limited/Unobtainable: No Constitutional: Reports: no symptoms HEENT: Repors: no symptoms Respiratory: Reports: no symptoms Allergies: Coded Allergies: No Known Allergies (Unverified , 02/11/17) Objective Last 24 Hour Vital Signs Date Time Temp Pulse Resp B/P (MAP) Pulse Ox O2 Delivery O2 Flow Rate FiO2 02/26/17 12:00 97.9 62 18 141/59 93 Room Air 02/26/17 09:00 57 152/85 02/26/17 08:03 57 16 Room Air 21 02/26/17 08:00 98.1 67 19 152/85 93 Room Air 02/26/17 04:00 97.5 55 21 133/54 97 Room Air 02/25/17 20:00 97.5 55 20 123/50 93 Room Air 02/25/17 19:29 54 18 Room Air 21 02/25/17 18:24 60 157/55 02/25/17 16:26 97.7 Intake and Output 02/26/17 02/27/17 19:00 07:00 # Bowel Movements 1 General Appearance: WD/WN HEENT: normocephalic, atraumatic Respiratory/Chest: chest wall non-tender, lungs clear Breasts: no masses Cardiovascular: normal peripheral pulses Abdomen: normal bowel sounds, soft, non tender Genitourinary: normal external genitalia Skin: no rash Current Medications Medications (Trade) Dose Ordered Sig/Luz Route PRN Reason Start Time Stop Time Status Last Admin Dose Admin Acetaminophen (Tylenol) 650 mg Q4H PRN ORAL fever 02/16/17 16:45 03/18/17 16:44 Acetaminophen/ Hydrocodone Bitart ([place] 5/325) 1 tab Q4H PRN ORAL Moderate Pain (Pain Scale 4-6) 02/22/17 11:00 03/01/17 10:59 02/26/17 12:50 Amlodipine Besylate (Norvasc) 5 mg BID ORAL 02/19/17 18:00 03/22/17 08:59 02/25/17 18:24 Ciprofloxacin (Cipro 250mg tab) 250 mg EVERY 12 HOURS ORAL 02/19/17 21:00 02/26/17 20:59 02/26/17 10:12 Clindamycin HCl (Cleocin) 300 mg Q8HR ORAL 02/26/17 06:00 03/05/17 05:59 02/26/17 06:00 Clonidine HCl (Catapres) 0.1 mg Q6H PRN ORAL sbp above 160 02/19/17 10:45 03/21/17 10:44 Dextrose (Dextrose 50%) STAT PRN IV Hypoglycemia 02/16/17 16:45 03/18/17 16:44 Dextrose/Sodium Chloride 1,000 ml @ 75 mls/hr [id number] IV 02/26/17 12:00 03/28/17 11:59 Ergocalciferol (Drisdol) 50,000 intlu QWEEK ORAL 02/19/17 15:00 03/21/17 14:59 02/19/17 15:48 Folic Acid (Folate) 2 mg DAILY ORAL 02/19/17 15:00 03/21/17 14:59 02/26/17 10:13 Heparin Sodium (Porcine) (Heparin 5000 units/ml) 5,000 units EVERY 12 HOURS SUBQ 02/16/17 21:00 03/18/17 20:59 02/26/17 10:19 Lansoprazole (Prevacid) 30 mg DAILY ORAL 02/19/17 15:00 03/21/17 14:59 02/26/17 10:13 Levothyroxine Sodium (Synthroid) 25 mcg ACBREAKFAST ORAL 02/26/17 06:30 03/28/17 06:29 02/26/17 06:01 Nitroglycerin (Ntg) 0.4 mg Every 5 Minutes PRN SL Prn Chest Pain 02/16/17 16:45 03/18/17 16:44 Ondansetron HCl (Zofran) 4 mg Q6H PRN IVP Nausea & Vomiting 02/16/17 16:45 03/18/17 16:44 Polyethylene Glycol (Miralax) 17 gm DAILYPRN PRN ORAL Constipation 02/16/17 16:45 03/18/17 16:44 ISMA PEPE Feb 26, 2017 13:17
[2017-02-26] MEDS: D5NS 1,000 ML IV SCH (13:32)
[2017-02-26] MEDS: Vitamin D 50,000 units cap ORAL SCH (15:47)
[2017-02-26 16:00] VITALS: BP 113/77
[2017-02-26 20:00] VITALS: BP 123/55
[2017-02-27] VITALS: BP 123/51
[2017-02-27] MEDS: D5NS 1,000 ML IV SCH ×2 (00:55→14:40)
[2017-02-27 04:00] VITALS: BP 123/64
[2017-02-27] MEDS: Levothyroxine 25mcg tab ORAL SCH (06:09)
[2017-02-27] MEDS: Clindamycin 150mg cap ORAL SCH ×3 (06:09→21:16)
[2017-02-27 08:36] VITALS: BP 130/65
[2017-02-27] MEDS: Heparin 5000 units/ml inj SUBQ SCH ×2 (08:56→21:18)
[2017-02-27] MEDS ORDERED: D5NS 1000ml IV ONE (09:37)
--- NOTE | 2017-02-27 11:48 | General Progress Note ---
Assessment/Plan Status: unchanged Assessment/Plan UTI Bilateral posterior thigh chronic nonhealing ulcers Venous stasis ulcers, bilateral, chronic, nonhealing ARF on CKD Obesity homeless anemia w/chair bound obesity Plan; refused Blood aork add seroquesl IV 75 h check labs in am- Consider DC Bactrim and Cipro per ID??? ( Cr rising) Monitor renal parameters- Add Norvasc for better BP control. adjust dose Avoid nephrotoxics Iron and B12 and gastric support DC planning? Subjective ROS Limited/Unobtainable: No Allergies: Coded Allergies: No Known Allergies (Unverified , 02/11/17) Objective Last 24 Hour Vital Signs Date Time Temp Pulse Resp B/P (MAP) Pulse Ox O2 Delivery O2 Flow Rate FiO2 02/27/17 08:49 62 130/65 02/27/17 08:36 98.4 62 20 130/65 99 Room Air 02/27/17 04:00 97.7 59 18 123/64 97 Room Air 02/27/17 00:00 97.7 60 18 123/51 96 Room Air 02/26/17 20:00 98.4 61 20 123/55 93 Room Air 02/26/17 18:01 62 113/77 02/26/17 16:00 97.7 62 18 113/77 94 Room Air 02/26/17 12:00 97.9 62 18 141/59 93 Room Air Intake and Output 02/27/17 02/28/17 19:00 07:00 # Bowel Movements 1 Height (Feet): 5 Height (Inches): 4.00 Weight (Pounds): 143 General Appearance: no apparent distress Objective PE not changed EFRA BRODY Feb 27, 2017 11:48
[2017-02-27 11:56] VITALS: BP 126/66
[2017-02-27] MEDS ORDERED: Haloperidol 5mg/ml Inj IM PRN (12:00)
[2017-02-27 20:00] VITALS: BP 143/63
--- NOTE | 2017-02-27 22:22 | Pulmonology Progress Note ---
Assessment/Plan Problems: (1) Cellulitis (2) Decubitus ulcers (3) Venous stasis ulcer (4) ATN (acute tubular necrosis) Assessment/Plan continue the same iv bx wound care watch renal parameters f/u consultants recommendations placement Subjective ROS Limited/Unobtainable: No Constitutional: Reports: no symptoms HEENT: Repors: no symptoms Allergies: Coded Allergies: No Known Allergies (Unverified , 02/11/17) Objective Last 24 Hour Vital Signs Date Time Temp Pulse Resp B/P (MAP) Pulse Ox O2 Delivery O2 Flow Rate FiO2 02/27/17 20:00 97.7 67 20 143/63 96 Room Air 02/27/17 18:25 65 126/66 02/27/17 11:56 98.2 65 20 126/66 99 Room Air 02/27/17 08:49 62 130/65 02/27/17 08:36 98.4 62 20 130/65 99 Room Air 02/27/17 04:00 97.7 59 18 123/64 97 Room Air 02/27/17 00:00 97.7 60 18 123/51 96 Room Air Intake and Output 02/27/17 02/28/17 19:00 07:00 Intake Total 650 ml Balance 650 ml Intake Oral 650 ml # Voids 3 # Bowel Movements 1 General Appearance: WD/WN HEENT: normocephalic, anicteric Cardiovascular: normal peripheral pulses, no JVD Abdomen: normal bowel sounds, soft, non tender Genitourinary: normal external genitalia Extremities: no cyanosis Skin: no lesions 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 Current Medications Medications (Trade) Dose Ordered Sig/Luz Route PRN Reason Start Time Stop Time Status Last Admin Dose Admin Acetaminophen (Tylenol) 650 mg Q4H PRN ORAL fever 02/16/17 16:45 03/18/17 16:44 Acetaminophen/ Hydrocodone Bitart ([place] 5/325) 1 tab Q4H PRN ORAL Moderate Pain (Pain Scale 4-6) 02/22/17 11:00 03/01/17 10:59 02/26/17 12:50 Amlodipine Besylate (Norvasc) 5 mg BID ORAL 02/19/17 18:00 03/22/17 08:59 02/27/17 18:25 Ciprofloxacin (Cipro 250mg tab) 250 mg EVERY 12 HOURS ORAL 02/27/17 21:00 03/06/17 20:59 02/27/17 21:20 Clindamycin HCl (Cleocin) 300 mg Q8HR ORAL 02/26/17 06:00 03/05/17 05:59 02/27/17 21:16 Clonidine HCl (Catapres) 0.1 mg Q6H PRN ORAL sbp above 160 02/19/17 10:45 03/21/17 10:44 Dextrose (Dextrose 50%) STAT PRN IV Hypoglycemia 02/16/17 16:45 03/18/17 16:44 Dextrose/Sodium Chloride 1,000 ml @ 75 mls/hr [id number] IV 02/26/17 12:00 03/28/17 11:59 02/27/17 00:55 Ergocalciferol (Drisdol) 50,000 intlu QWEEK ORAL 02/19/17 15:00 03/21/17 14:59 02/26/17 15:47 Folic Acid (Folate) 2 mg DAILY ORAL 02/19/17 15:00 03/21/17 14:59 02/27/17 08:49 Haloperidol Lactate (Haldol) 5 mg Q6H PRN IM AGITATION 02/27/17 12:00 03/29/17 11:59 Heparin Sodium (Porcine) (Heparin 5000 units/ml) 5,000 units EVERY 12 HOURS SUBQ 02/16/17 21:00 03/18/17 20:59 02/27/17 21:18 Levothyroxine Sodium (Synthroid) 25 mcg ACBREAKFAST ORAL 02/26/17 06:30 03/28/17 06:29 02/27/17 06:09 Nitroglycerin (Ntg) 0.4 mg Every 5 Minutes PRN SL Prn Chest Pain 02/16/17 16:45 03/18/17 16:44 Ondansetron HCl (Zofran) 4 mg Q6H PRN IVP Nausea & Vomiting 02/16/17 16:45 03/18/17 16:44 Pantoprazole (Protonix) 40 mg DAILY ORAL 02/28/17 09:00 03/30/17 08:59 Polyethylene Glycol (Miralax) 17 gm DAILYPRN PRN ORAL Constipation 02/16/17 16:45 03/18/17 16:44 Quetiapine Fumarate (SEROquel) 25 mg Q12HR ORAL 02/27/17 12:00 03/29/17 11:59 ISMA PEPE Feb 27, 2017 22:22
[2017-02-28] VITALS: BP 145/71
[2017-02-28] MEDS: D5NS 1,000 ML IV SCH ×2 (04:00→17:22)
[2017-02-28 04:04] VITALS: BP 120/54
[2017-02-28] MEDS: Levothyroxine 25mcg tab ORAL SCH (06:41)
[2017-02-28] MEDS: Clindamycin 150mg cap ORAL SCH ×3 (06:41→21:16)
[2017-02-28 08:00] VITALS: BP 143/72
[2017-02-28 08:29] LABS: BASOPHILS % (AUTO) 1.5 % (0.0-2.0); EOSINOPHILS % (AUTO) 10.2 % (0.0-3.0); LYMPHOCYTES % (AUTO) 29.6 % (20.0-45.0); MEAN CORPUSCULAR HEMOGLOBIN 28.9 PG (27.0-31.0); MEAN CORPUSCULAR VOLUME 90 FL (80-99); MEAN PLATELET VOLUME 4.6 FL (6.5-10.1); MONOCYTES % (AUTO) 4.5 % (1.0-10.0); NEUTROPHILS % (AUTO) 54.2 % (45.0-75.0); PLATELET COUNT 450 K/UL (150-450); RED BLOOD COUNT 3.77 M/UL (4.20-5.40); RED CELL DISTRIBUTION WIDTH 20.4 % (11.6-14.8); WHITE BLOOD COUNT 8.9 K/UL (4.8-10.8)
[2017-02-28 08:41] LABS: ALANINE AMINOTRANSFERASE 21 U/L (12-78); ALBUMIN/GLOBULIN RATIO 0.7 (1.0-2.7); ANION GAP 8 mmol/L (5-15); ASPARTATE AMINO TRANSFERASE 34 U/L (15-37); CALCIUM 9.3 MG/DL (8.5-10.1); CARBON DIOXIDE 25 MMOL/L (21-32); CHLORIDE 102 MMOL/L (98-107); CREATININE 1.4 MG/DL (0.55-1.30); CRP QUANT 0.8 mg/dL (0.00-0.90); GLOMERULAR FILTRATION RATE 37.8 mL/min (>60); PHOSPHORUS 3.3 MG/DL (2.5-4.9); POTASSIUM 4.4 MMOL/L (3.5-5.1); SODIUM 135 MMOL/L (136-145); TOTAL PROTEIN 8.1 G/DL (6.4-8.2)
[2017-02-28 09:43] LABS: ERYTHROCYTE SEDIMENTATION RATE 54 MM/HR (0-30)
[2017-02-28] MEDS: Heparin 5000 units/ml inj SUBQ SCH ×2 (10:54→21:18)
[2017-02-28 12:00] VITALS: BP 138/61
--- NOTE | 2017-02-28 12:12 | Wound Nurse Progress Note ---
Wound RN Progress Note Wound Consult #1 Left upper posterior thigh scattered full thickness open wound, etiology unknown- no further deterioration,continue current wound care as ordered. #2 Right upper posterior thigh open full thickness open wound, etiology unknown- no further deterioration, continue current wound care as ordered. #3 Left and right lower legs with scattered full thickness open venous stasis ulcer- unable to assess patient refused,explained risks and benefit for assessment pt stated"dont take it off". #4 Sacrococcygeal unstageable pressure ulcer- no further deterioration, continue wound care as ordered. continue wound care as recommended. Recommendation -Left upper posterior thigh scattered full thickness open wound, etiology unknown and Right upper posterior thigh full thickness open wound, etiology unknown Cleanse with saline pat dry apply Xeroform gauze cover with bordered gauze daily and PRN soiled/dislodged -Sacrococcygeal unstageable pressure ulcer Cleanse with saline, pat dry, apply Triad cream on surrounding area, apply Therahoney gel on wound bed cover with bordered gauze daily and PRN soiled/ dislodged -Left and right lower legs with scattered full thickness open venous stasis ulcer, Cleanse with saline, pat dry, apply Xeroform gauze, cover with 4x4 secure with Kerlix and tape daily and PRN soiled/dislodged -Keep clean and dry -Optimize nutrition -Turn and reposition -Low air loss mattress -Offload both heels -Heel protector on both heels -Assess and f/u accordingly for any changes ROBERT GARCIA Feb 28, 2017 12:12
--- NOTE | 2017-02-28 12:29 | Infectious Diseases Prog Note ---
Assessment/Plan Assessment/Plan Assessment/Plan ASSESSMENT: 67 y/o female with: // Possible UTI - UCx :P. 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 bactrim related- bactrim d /c'ed 02/25- improving // Thrombocytosis // Obesity // Homelessness // Wheelchair bound // NKDA // Full Code PLAN: -Continue Clindamycin 300mg tid abx d# for cellulitis -Continue Cipro (renally dosed) abx # for cellulitis and UTI -s/p 4d Bactrim 02/25 -s/p 6d IV Vancomycin 02/21 -s/p 3d IV Cefepime 02/19 - monitor CBC, temperatures - monitor BMP; trend creatinine - wound care Discussed with RN, Subjective Allergies: Coded Allergies: No Known Allergies (Unverified , 02/11/17) Subjective afebrile Cr improving no leukocytosis Objective Vital Signs Last 24 Hour Vital Signs Date Time Temp Pulse Resp B/P (MAP) Pulse Ox O2 Delivery O2 Flow Rate FiO2 02/28/17 10:49 60 143/72 02/28/17 08:00 98.1 60 17 143/72 95 Room Air 02/28/17 04:04 98.1 61 18 120/54 97 Room Air 02/28/17 00:00 97.3 63 18 145/71 97 Room Air 02/27/17 20:00 97.7 67 20 143/63 96 Room Air 02/27/17 18:25 65 126/66 Height (Feet): 5 Height (Inches): 4.00 Weight (Pounds): 143 Objective General Appearance: no acute distress HEENT: mucous membranes moist Respiratory/Chest: lungs clear Cardiovascular: normal rate Abdomen: soft, non tender Extremities: no edema Skin: ulcers, other - erythema in posterior legs, ulcer on posterior thights Neurologic/Psychiatric: AAO3, no focal deficits reviewed Laboratory Tests Test 02/28/17 06:45 White Blood Count 8.9 K/UL (4.8-10.8) Red Blood Count 3.77 M/UL (4.20-5.40) L Hemoglobin 10.9 G/DL (12.0-16.0) L Hematocrit 34.0 % (37.0-47.0) L Mean Corpuscular Volume 90 FL (80-99) Mean Corpuscular Hemoglobin 28.9 PG (27.0-31.0) Mean Corpuscular Hemoglobin Concent 32.0 G/DL (32.0-36.0) Red Cell Distribution Width 20.4 % (11.6-14.8) H Platelet Count 450 K/UL (150-450) Mean Platelet Volume 4.6 FL (6.5-10.1) L Neutrophils (%) (Auto) 54.2 % (45.0-75.0) Lymphocytes (%) (Auto) 29.6 % (20.0-45.0) Monocytes (%) (Auto) 4.5 % (1.0-10.0) Eosinophils (%) (Auto) 10.2 % (0.0-3.0) H Basophils (%) (Auto) 1.5 % (0.0-2.0) Erythrocyte Sedimentation Rate 54 MM/HR (0-30) H Sodium Level 135 MMOL/L (136-145) L Potassium Level 4.4 MMOL/L (3.5-5.1) Chloride Level 102 MMOL/L (98-107) Carbon Dioxide Level 25 MMOL/L (21-32) Anion Gap 8 mmol/L (5-15) Blood Urea Nitrogen 17 mg/dL (7-18) Creatinine 1.4 MG/DL (0.55-1.30) H Estimat Glomerular Filtration Rate 37.8 mL/min (>60) Glucose Level 91 MG/DL (74-106) Calcium Level 9.3 MG/DL (8.5-10.1) Phosphorus Level 3.3 MG/DL (2.5-4.9) Magnesium Level 2.0 MG/DL (1.8-2.4) Total Bilirubin 0.1 MG/DL (0.2-1.0) L Aspartate Amino Transf (AST/SGOT) 34 U/L (15-37) Alanine Aminotransferase (ALT/SGPT) 21 U/L (12-78) Alkaline Phosphatase 95 U/L (46-116) C-Reactive Protein, Quantitative 0.8 mg/dL (0.00-0.90) Total Protein 8.1 G/DL (6.4-8.2) Albumin 3.3 G/DL (3.4-5.0) L Globulin 4.8 g/dL Albumin/Globulin Ratio 0.7 (1.0-2.7) L Current Medications Medications (Trade) Dose Ordered Sig/Luz Route PRN Reason Start Time Stop Time Status Last Admin Dose Admin Acetaminophen (Tylenol) 650 mg Q4H PRN ORAL fever 02/16/17 16:45 03/18/17 16:44 Acetaminophen/ Hydrocodone Bitart ([place] 5/325) 1 tab Q4H PRN ORAL Moderate Pain (Pain Scale 4-6) 02/22/17 11:00 03/01/17 10:59 02/26/17 12:50 Amlodipine Besylate (Norvasc) 5 mg BID ORAL 02/19/17 18:00 03/22/17 08:59 02/28/17 10:49 Ciprofloxacin (Cipro 250mg tab) 250 mg EVERY 12 HOURS ORAL 02/27/17 21:00 03/06/17 20:59 02/28/17 10:49 Clindamycin HCl (Cleocin) 300 mg Q8HR ORAL 02/26/17 06:00 03/05/17 05:59 02/28/17 06:41 Clonidine HCl (Catapres) 0.1 mg Q6H PRN ORAL sbp above 160 02/19/17 10:45 03/21/17 10:44 Dextrose (Dextrose 50%) STAT PRN IV Hypoglycemia 02/16/17 16:45 03/18/17 16:44 Dextrose/Sodium Chloride 1,000 ml @ 75 mls/hr [id number] IV 02/26/17 12:00 03/28/17 11:59 02/27/17 00:55 Ergocalciferol (Drisdol) 50,000 intlu QWEEK ORAL 02/19/17 15:00 03/21/17 14:59 02/26/17 15:47 Folic Acid (Folate) 2 mg DAILY ORAL 02/19/17 15:00 03/21/17 14:59 02/28/17 10:49 Haloperidol Lactate (Haldol) 5 mg Q6H PRN IM AGITATION 02/27/17 12:00 03/29/17 11:59 Heparin Sodium (Porcine) (Heparin 5000 units/ml) 5,000 units EVERY 12 HOURS SUBQ 02/16/17 21:00 03/18/17 20:59 02/28/17 10:54 Levothyroxine Sodium (Synthroid) 25 mcg ACBREAKFAST ORAL 02/26/17 06:30 03/28/17 06:29 02/28/17 06:41 Nitroglycerin (Ntg) 0.4 mg Every 5 Minutes PRN SL Prn Chest Pain 02/16/17 16:45 03/18/17 16:44 Ondansetron HCl (Zofran) 4 mg Q6H PRN IVP Nausea & Vomiting 02/16/17 16:45 03/18/17 16:44 Pantoprazole (Protonix) 40 mg DAILY ORAL 02/28/17 09:00 03/30/17 08:59 02/28/17 10:49 Polyethylene Glycol (Miralax) 17 gm DAILYPRN PRN ORAL Constipation 02/16/17 16:45 03/18/17 16:44 Quetiapine Fumarate (SEROquel) 25 mg Q12HR ORAL 02/27/17 12:00 03/29/17 11:59 Es Tian M.D. Feb 28, 2017 12:29
--- NOTE | 2017-02-28 15:20 | General Progress Note ---
Assessment/Plan Status: unchanged Status Narrative Cr down 1.4- refuses meds- Assessment/Plan UTI Bilateral posterior thigh chronic nonhealing ulcers Venous stasis ulcers, bilateral, chronic, nonhealing ARF on CKD Obesity homeless anemia w/chair bound obesity Plan; refused Blood add seroquesl IV 75 h check labs in am- Consider DC Bactrim and Cipro per ID??? ( Cr rising) Monitor renal parameters- Add Norvasc for better BP control. adjust dose Avoid nephrotoxics Iron and B12 and gastric support DC planning? Subjective ROS Limited/Unobtainable: No Constitutional: Reports: malaise Allergies: Coded Allergies: No Known Allergies (Unverified , 02/11/17) Objective Last 24 Hour Vital Signs Date Time Temp Pulse Resp B/P (MAP) Pulse Ox O2 Delivery O2 Flow Rate FiO2 02/28/17 12:00 97.7 60 18 138/61 98 Room Air 02/28/17 10:49 60 143/72 02/28/17 08:00 98.1 60 17 143/72 95 Room Air 02/28/17 04:04 98.1 61 18 120/54 97 Room Air 02/28/17 00:00 97.3 63 18 145/71 97 Room Air 02/27/17 20:00 97.7 67 20 143/63 96 Room Air 02/27/17 18:25 65 126/66 Laboratory Tests 02/28/17 06:45: White Blood Count 8.9, Red Blood Count 3.77L, Hemoglobin 10.9L, Hematocrit 34.0L , Mean Corpuscular Volume 90, Mean Corpuscular Hemoglobin 28.9, Mean Corpuscular Hemoglobin Concent 32.0, Red Cell Distribution Width 20.4H, Platelet Count 450, Mean Platelet Volume 4.6L, Neutrophils (%) (Auto) 54.2, Lymphocytes (%) (Auto) 29.6, Monocytes (%) (Auto) 4.5, Eosinophils (%) (Auto) 10.2H, Basophils (%) (Auto) 1.5, Erythrocyte Sedimentation Rate 54H, Sodium Level 135L, Potassium Level 4.4, Chloride Level 102, Carbon Dioxide Level 25, Anion Gap 8, Blood Urea Nitrogen 17, Creatinine 1.4H, Estimat Glomerular Filtration Rate 37.8, Glucose Level 91, Calcium Level 9.3, Phosphorus Level 3.3 , Magnesium Level 2.0, Total Bilirubin 0.1L, Aspartate Amino Transf (AST/SGOT) 34, Alanine Aminotransferase (ALT/SGPT) 21, Alkaline Phosphatase 95, C-Reactive Protein, Quantitative 0.8, Total Protein 8.1, Albumin 3.3L, Globulin 4.8, Albumin/Globulin Ratio 0.7L Height (Feet): 5 Height (Inches): 4.00 Weight (Pounds): 143 General Appearance: no apparent distress, agitated Respiratory/Chest: decreased breath sounds Abdomen: soft Objective PE not changed EFRA BRODY Feb 28, 2017 15:20
[2017-02-28 16:06] VITALS: BP 137/57
[2017-02-28] MEDS: Norco 5mg/325mg tab ORAL PRN (16:48)
[2017-02-28 19:38] VITALS: BP 133/58
--- NOTE | 2017-02-28 22:25 | Pulmonology Progress Note ---
Assessment/Plan Problems: (1) Cellulitis (2) Decubitus ulcers (3) Venous stasis ulcer (4) ATN (acute tubular necrosis) Assessment/Plan pt is noncomplianst continue the same wound care watch renal parameters f/u consultants recommendations placement Subjective ROS Limited/Unobtainable: No Allergies: Coded Allergies: No Known Allergies (Unverified , 02/11/17) Objective Last 24 Hour Vital Signs Date Time Temp Pulse Resp B/P (MAP) Pulse Ox O2 Delivery O2 Flow Rate FiO2 02/28/17 19:38 97.7 61 20 133/58 94 Room Air 02/28/17 17:23 97.0 02/28/17 17:23 60 137/57 02/28/17 16:06 97.0 60 18 137/57 96 Room Air 02/28/17 12:00 97.7 60 18 138/61 98 Room Air 02/28/17 10:49 60 143/72 02/28/17 08:00 98.1 60 17 143/72 95 Room Air 02/28/17 04:04 98.1 61 18 120/54 97 Room Air 02/28/17 00:00 97.3 63 18 145/71 97 Room Air Intake and Output 02/28/17 03/01/17 19:00 07:00 Intake Total 600 ml Balance 600 ml Intake Oral 600 ml # Voids 3 # Bowel Movements 2 Objective General Appearance: WD/WN HEENT: normocephalic, atraumatic Respiratory/Chest: chest wall non-tender, lungs clear Breasts: no masses Cardiovascular: normal peripheral pulses Abdomen: normal bowel sounds, soft, non tender Genitourinary: normal external genitalia Laboratory Tests 02/28/17 06:45: White Blood Count 8.9, Red Blood Count 3.77L, Hemoglobin 10.9L, Hematocrit 34.0L , Mean Corpuscular Volume 90, Mean Corpuscular Hemoglobin 28.9, Mean Corpuscular Hemoglobin Concent 32.0, Red Cell Distribution Width 20.4H, Platelet Count 450, Mean Platelet Volume 4.6L, Neutrophils (%) (Auto) 54.2, Lymphocytes (%) (Auto) 29.6, Monocytes (%) (Auto) 4.5, Eosinophils (%) (Auto) 10.2H, Basophils (%) (Auto) 1.5, Erythrocyte Sedimentation Rate 54H, Sodium Level 135L, Potassium Level 4.4, Chloride Level 102, Carbon Dioxide Level 25, Anion Gap 8, Blood Urea Nitrogen 17, Creatinine 1.4H, Estimat Glomerular Filtration Rate 37.8, Glucose Level 91, Calcium Level 9.3, Phosphorus Level 3.3 , Magnesium Level 2.0, Total Bilirubin 0.1L, Aspartate Amino Transf (AST/SGOT) 34, Alanine Aminotransferase (ALT/SGPT) 21, Alkaline Phosphatase 95, C-Reactive Protein, Quantitative 0.8, Total Protein 8.1, Albumin 3.3L, Globulin 4.8, Albumin/Globulin Ratio 0.7L Current Medications Medications (Trade) Dose Ordered Sig/Luz Route PRN Reason Start Time Stop Time Status Last Admin Dose Admin Acetaminophen (Tylenol) 650 mg Q4H PRN ORAL fever 02/16/17 16:45 03/18/17 16:44 Acetaminophen/ Hydrocodone Bitart ([place] 5/325) 1 tab Q4H PRN ORAL Moderate Pain (Pain Scale 4-6) 02/22/17 11:00 03/01/17 10:59 02/28/17 16:48 Amlodipine Besylate (Norvasc) 5 mg BID ORAL 02/19/17 18:00 03/22/17 08:59 02/28/17 17:23 Ciprofloxacin (Cipro 250mg tab) 250 mg EVERY 12 HOURS ORAL 02/27/17 21:00 03/06/17 20:59 02/28/17 21:16 Clindamycin HCl (Cleocin) 300 mg Q8HR ORAL 02/26/17 06:00 03/05/17 05:59 02/28/17 21:16 Clonidine HCl (Catapres) 0.1 mg Q6H PRN ORAL sbp above 160 02/19/17 10:45 03/21/17 10:44 Dextrose (Dextrose 50%) STAT PRN IV Hypoglycemia 02/16/17 16:45 03/18/17 16:44 Dextrose/Sodium Chloride 1,000 ml @ 75 mls/hr [id number] IV 02/26/17 12:00 03/28/17 11:59 02/28/17 17:22 Ergocalciferol (Drisdol) 50,000 intlu QWEEK ORAL 02/19/17 15:00 03/21/17 14:59 02/26/17 15:47 Folic Acid (Folate) 2 mg DAILY ORAL 02/19/17 15:00 03/21/17 14:59 02/28/17 10:49 Haloperidol Lactate (Haldol) 5 mg Q6H PRN IM AGITATION 02/27/17 12:00 03/29/17 11:59 Heparin Sodium (Porcine) (Heparin 5000 units/ml) 5,000 units EVERY 12 HOURS SUBQ 02/16/17 21:00 03/18/17 20:59 02/28/17 21:18 Levothyroxine Sodium (Synthroid) 25 mcg ACBREAKFAST ORAL 02/26/17 06:30 03/28/17 06:29 02/28/17 06:41 Nitroglycerin (Ntg) 0.4 mg Every 5 Minutes PRN SL Prn Chest Pain 02/16/17 16:45 03/18/17 16:44 Ondansetron HCl (Zofran) 4 mg Q6H PRN IVP Nausea & Vomiting 02/16/17 16:45 03/18/17 16:44 Pantoprazole (Protonix) 40 mg DAILY ORAL 02/28/17 09:00 03/30/17 08:59 02/28/17 10:49 Polyethylene Glycol (Miralax) 17 gm DAILYPRN PRN ORAL Constipation 02/16/17 16:45 03/18/17 16:44 Quetiapine Fumarate (SEROquel) 25 mg Q12HR ORAL 02/27/17 12:00 03/29/17 11:59 ISMA PEPE Feb 28, 2017 22:25
[2017-03-01] VITALS: BP 139/67
[2017-03-01] MEDS: Clindamycin 150mg cap ORAL SCH ×3 (06:04→21:51)
[2017-03-01] MEDS: Levothyroxine 25mcg tab ORAL SCH (06:04)
[2017-03-01] MEDS: D5NS 1,000 ML IV SCH (06:04)
[2017-03-01 08:57] VITALS: BP 137/60
[2017-03-01] MEDS: Heparin 5000 units/ml inj SUBQ SCH ×2 (08:59→20:51)
[2017-03-01 12:18] VITALS: BP 132/60
[2017-03-01] MEDS ORDERED: Norco 5mg/325mg tab ORAL PRN (12:20)
--- NOTE | 2017-03-01 13:35 | Infectious Diseases Prog Note ---
Assessment/Plan Assessment/Plan ASSESSMENT: 67 y/o female with: // Possible UTI - UCx :P. 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 bactrim related- bactrim d /c'ed 02/25- improving // Thrombocytosis // Obesity // Homelessness // Wheelchair bound // NKDA // Full Code PLAN: -Continue Clindamycin 300mg tid abx d#1 08/13 for cellulitis will DC in AM -Continue Cipro (renally dosed) abx # for cellulitis and UTI will DC in AM -s/p 4d Bactrim 02/25 -s/p 6d IV Vancomycin 02/21 -s/p 3d IV Cefepime 02/19 - monitor CBC, temperatures - monitor BMP; trend creatinine - wound care Subjective Constitutional: Denies: no symptoms, fever, chills, fatigue, anorexia, drenching sweats, other Allergies: Coded Allergies: No Known Allergies (Unverified , 02/11/17) Objective Vital Signs Last 24 Hour Vital Signs Date Time Temp Pulse Resp B/P (MAP) Pulse Ox O2 Delivery O2 Flow Rate FiO2 03/01/17 12:18 97.6 60 18 132/60 99 Room Air 03/01/17 09:00 57 137/60 03/01/17 08:57 97.7 57 18 137/60 99 Room Air 03/01/17 00:00 97.7 60 20 139/67 94 Room Air 02/28/17 19:38 97.7 61 20 133/58 94 Room Air 02/28/17 17:23 97.0 02/28/17 17:23 60 137/57 02/28/17 16:06 97.0 60 18 137/57 96 Room Air Height (Feet): 5 Height (Inches): 4.00 Weight (Pounds): 143 HEENT: anicteric Respiratory/Chest: normal breath sounds Cardiovascular: normal peripheral pulses Abdomen: no organomegaly Current Medications Medications (Trade) Dose Ordered Sig/Luz Route PRN Reason Start Time Stop Time Status Last Admin Dose Admin Acetaminophen (Tylenol) 650 mg Q4H PRN ORAL fever 02/16/17 16:45 03/18/17 16:44 Acetaminophen/ Hydrocodone Bitart ([place] 5/325) 1 tab Q4H PRN ORAL Moderate Pain (Pain Scale 4-6) 03/01/17 12:20 03/08/17 12:19 03/01/17 12:58 Amlodipine Besylate (Norvasc) 5 mg BID ORAL 02/19/17 18:00 03/22/17 08:59 03/01/17 09:00 Ciprofloxacin (Cipro 250mg tab) 250 mg EVERY 12 HOURS ORAL 02/27/17 21:00 03/06/17 20:59 03/01/17 09:00 Clindamycin HCl (Cleocin) 300 mg Q8HR ORAL 02/26/17 06:00 03/05/17 05:59 03/01/17 12:58 Clonidine HCl (Catapres) 0.1 mg Q6H PRN ORAL sbp above 160 02/19/17 10:45 03/21/17 10:44 Dextrose (Dextrose 50%) STAT PRN IV Hypoglycemia 02/16/17 16:45 03/18/17 16:44 Dextrose/Sodium Chloride 1,000 ml @ 75 mls/hr [id number] IV 02/26/17 12:00 03/28/17 11:59 03/01/17 06:04 Ergocalciferol (Drisdol) 50,000 intlu QWEEK ORAL 02/19/17 15:00 03/21/17 14:59 02/26/17 15:47 Folic Acid (Folate) 2 mg DAILY ORAL 02/19/17 15:00 03/21/17 14:59 03/01/17 08:55 Haloperidol Lactate (Haldol) 5 mg Q6H PRN IM AGITATION 02/27/17 12:00 03/29/17 11:59 Heparin Sodium (Porcine) (Heparin 5000 units/ml) 5,000 units EVERY 12 HOURS SUBQ 02/16/17 21:00 03/18/17 20:59 03/01/17 08:59 Levothyroxine Sodium (Synthroid) 25 mcg ACBREAKFAST ORAL 02/26/17 06:30 03/28/17 06:29 03/01/17 06:04 Nitroglycerin (Ntg) 0.4 mg Every 5 Minutes PRN SL Prn Chest Pain 02/16/17 16:45 03/18/17 16:44 Ondansetron HCl (Zofran) 4 mg Q6H PRN IVP Nausea & Vomiting 02/16/17 16:45 03/18/17 16:44 Pantoprazole (Protonix) 40 mg DAILY ORAL 02/28/17 09:00 03/30/17 08:59 03/01/17 08:55 Polyethylene Glycol (Miralax) 17 gm DAILYPRN PRN ORAL Constipation 02/16/17 16:45 03/18/17 16:44 Quetiapine Fumarate (SEROquel) 25 mg Q12HR ORAL 02/27/17 12:00 03/29/17 11:59 PELON FELIX M.D. Mar 01, 2017 13:35
--- NOTE | 2017-03-01 14:07 | Pulmonology Progress Note ---
Assessment/Plan Problems: (1) Cellulitis (2) Decubitus ulcers (3) Venous stasis ulcer (4) ATN (acute tubular necrosis) Assessment/Plan pt is noncomplianst continue the same wound care watch renal parameters f/u consultants recommendations placement dc planning for am Subjective ROS Limited/Unobtainable: No Constitutional: Reports: no symptoms Respiratory: Reports: no symptoms, wheezing Cardiovascular: Reports: no symptoms Gastrointestinal/Abdominal: Reports: no symptoms Allergies: Coded Allergies: No Known Allergies (Unverified , 02/11/17) Objective Last 24 Hour Vital Signs Date Time Temp Pulse Resp B/P (MAP) Pulse Ox O2 Delivery O2 Flow Rate FiO2 03/01/17 12:18 97.6 60 18 132/60 99 Room Air 03/01/17 09:00 57 137/60 03/01/17 08:57 97.7 57 18 137/60 99 Room Air 03/01/17 00:00 97.7 60 20 139/67 94 Room Air 02/28/17 19:38 97.7 61 20 133/58 94 Room Air 02/28/17 17:23 97.0 02/28/17 17:23 60 137/57 02/28/17 16:06 97.0 60 18 137/57 96 Room Air Objective General Appearance: WD/WN HEENT: normocephalic, atraumatic Respiratory/Chest: chest wall non-tender, lungs clear Breasts: no masses Cardiovascular: normal peripheral pulses Abdomen: normal bowel sounds, soft, non tender Genitourinary: normal external genitalia Current Medications Medications (Trade) Dose Ordered Sig/Luz Route PRN Reason Start Time Stop Time Status Last Admin Dose Admin Acetaminophen (Tylenol) 650 mg Q4H PRN ORAL fever 02/16/17 16:45 03/18/17 16:44 Acetaminophen/ Hydrocodone Bitart ([place] 5/325) 1 tab Q4H PRN ORAL Moderate Pain (Pain Scale 4-6) 03/01/17 12:20 03/08/17 12:19 03/01/17 12:58 Amlodipine Besylate (Norvasc) 5 mg BID ORAL 02/19/17 18:00 03/22/17 08:59 03/01/17 09:00 Ciprofloxacin (Cipro 250mg tab) 250 mg EVERY 12 HOURS ORAL 02/27/17 21:00 03/06/17 20:59 03/01/17 09:00 Clindamycin HCl (Cleocin) 300 mg Q8HR ORAL 02/26/17 06:00 03/05/17 05:59 03/01/17 12:58 Clonidine HCl (Catapres) 0.1 mg Q6H PRN ORAL sbp above 160 02/19/17 10:45 03/21/17 10:44 Dextrose (Dextrose 50%) STAT PRN IV Hypoglycemia 02/16/17 16:45 03/18/17 16:44 Dextrose/Sodium Chloride 1,000 ml @ 75 mls/hr [id number] IV 02/26/17 12:00 03/28/17 11:59 03/01/17 06:04 Ergocalciferol (Drisdol) 50,000 intlu QWEEK ORAL 02/19/17 15:00 03/21/17 14:59 02/26/17 15:47 Folic Acid (Folate) 2 mg DAILY ORAL 02/19/17 15:00 03/21/17 14:59 03/01/17 08:55 Haloperidol Lactate (Haldol) 5 mg Q6H PRN IM AGITATION 02/27/17 12:00 03/29/17 11:59 Heparin Sodium (Porcine) (Heparin 5000 units/ml) 5,000 units EVERY 12 HOURS SUBQ 02/16/17 21:00 03/18/17 20:59 03/01/17 08:59 Levothyroxine Sodium (Synthroid) 25 mcg ACBREAKFAST ORAL 02/26/17 06:30 03/28/17 06:29 03/01/17 06:04 Nitroglycerin (Ntg) 0.4 mg Every 5 Minutes PRN SL Prn Chest Pain 02/16/17 16:45 03/18/17 16:44 Ondansetron HCl (Zofran) 4 mg Q6H PRN IVP Nausea & Vomiting 02/16/17 16:45 03/18/17 16:44 Pantoprazole (Protonix) 40 mg DAILY ORAL 02/28/17 09:00 03/30/17 08:59 03/01/17 08:55 Polyethylene Glycol (Miralax) 17 gm DAILYPRN PRN ORAL Constipation 02/16/17 16:45 03/18/17 16:44 Quetiapine Fumarate (SEROquel) 25 mg Q12HR ORAL 02/27/17 12:00 03/29/17 11:59 ISMA PEPE Mar 01, 2017 14:07
--- NOTE | 2017-03-01 16:04 | General Progress Note ---
Assessment/Plan Status: stable Assessment/Plan UTI Bilateral posterior thigh chronic nonhealing ulcers Venous stasis ulcers, bilateral, chronic, nonhealing ARF on CKD Obesity homeless anemia w/chair bound obesity Plan; refused Blood add seroquesl IV 75 h check labs in am- Consider DC Bactrim and Cipro per ID??? ( Cr rising) Monitor renal parameters- Add Norvasc for better BP control. adjust dose Avoid nephrotoxics Iron and B12 and gastric support DC planning? Subjective ROS Limited/Unobtainable: No Allergies: Coded Allergies: No Known Allergies (Unverified , 02/11/17) Objective Last 24 Hour Vital Signs Date Time Temp Pulse Resp B/P (MAP) Pulse Ox O2 Delivery O2 Flow Rate FiO2 03/01/17 12:18 97.6 60 18 132/60 99 Room Air 03/01/17 09:00 57 137/60 03/01/17 08:57 97.7 57 18 137/60 99 Room Air 03/01/17 00:00 97.7 60 20 139/67 94 Room Air 02/28/17 19:38 97.7 61 20 133/58 94 Room Air 02/28/17 17:23 97.0 02/28/17 17:23 60 137/57 02/28/17 16:06 97.0 60 18 137/57 96 Room Air Height (Feet): 5 Height (Inches): 4.00 Weight (Pounds): 143 General Appearance: no apparent distress Objective PE not changed EFRA BRODY Mar 01, 2017 16:04
[2017-03-01 16:07] VITALS: BP 135/65
[2017-03-01] MEDS ORDERED: D5NS 1000ml IV ONE (16:28)
[2017-03-02] MEDS: Clindamycin 150mg cap ORAL SCH (05:56)
[2017-03-02] MEDS: Levothyroxine 25mcg tab ORAL SCH (05:56)
[2017-03-02 08:00] VITALS: BP 140/75
--- NOTE | 2017-03-02 09:33 | Infectious Diseases Prog Note ---
Assessment/Plan Assessment/Plan ASSESSMENT: 67 y/o female with: // Possible UTI - UCx :P. 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 bactrim related- bactrim d /c'ed 02/25- improving // Thrombocytosis // Obesity // Homelessness // Wheelchair bound // NKDA // Full Code PLAN: monitor pt off of AB Rx -DC Clindamycin 300mg tid abx d#1 08/13 -DC Cipro (renally dosed) abx # for cellulitis and UTI -s/p 4d Bactrim 02/25 -s/p 6d IV Vancomycin 02/21 -s/p 3d IV Cefepime 02/19 - monitor CBC, temperatures - monitor BMP; trend creatinine - wound care Subjective Allergies: Coded Allergies: No Known Allergies (Unverified , 02/11/17) Subjective Afebrile Objective Vital Signs Last 24 Hour Vital Signs Date Time Temp Pulse Resp B/P (MAP) Pulse Ox O2 Delivery O2 Flow Rate FiO2 03/01/17 17:25 62 135/65 03/01/17 16:07 98.0 62 18 135/65 99 Room Air 03/01/17 12:18 97.6 60 18 132/60 99 Room Air Height (Feet): 5 Height (Inches): 4.00 Weight (Pounds): 143 HEENT: mucous membranes moist Respiratory/Chest: lungs clear Cardiovascular: regular rhythm Abdomen: no organomegaly Current Medications Medications (Trade) Dose Ordered Sig/Luz Route PRN Reason Start Time Stop Time Status Last Admin Dose Admin Acetaminophen (Tylenol) 650 mg Q4H PRN ORAL fever 02/16/17 16:45 03/18/17 16:44 Acetaminophen/ Hydrocodone Bitart ([place] 5/325) 1 tab Q4H PRN ORAL Moderate Pain (Pain Scale 4-6) 03/01/17 12:20 03/08/17 12:19 03/01/17 12:58 Amlodipine Besylate (Norvasc) 5 mg BID ORAL 10/21/17 18:00 03/22/17 08:59 03/01/17 17:25 Ciprofloxacin (Cipro 250mg tab) 250 mg EVERY 12 HOURS ORAL 02/27/17 21:00 03/06/17 20:59 03/01/17 20:48 Clindamycin HCl (Cleocin) 300 mg Q8HR ORAL 02/26/17 06:00 03/05/17 05:59 03/02/17 05:56 Clonidine HCl (Catapres) 0.1 mg Q6H PRN ORAL sbp above 160 02/19/17 10:45 03/21/17 10:44 Dextrose (Dextrose 50%) STAT PRN IV Hypoglycemia 02/16/17 16:45 03/18/17 16:44 Ergocalciferol (Drisdol) 50,000 intlu QWEEK ORAL 02/19/17 15:00 03/21/17 14:59 02/26/17 15:47 Folic Acid (Folate) 2 mg DAILY ORAL 02/19/17 15:00 03/21/17 14:59 03/01/17 08:55 Haloperidol Lactate (Haldol) 5 mg Q6H PRN IM AGITATION 02/27/17 12:00 03/29/17 11:59 Heparin Sodium (Porcine) (Heparin 5000 units/ml) 5,000 units EVERY 12 HOURS SUBQ 02/16/17 21:00 03/18/17 20:59 03/01/17 20:51 Levothyroxine Sodium (Synthroid) 25 mcg ACBREAKFAST ORAL 02/26/17 06:30 03/28/17 06:29 03/02/17 05:56 Nitroglycerin (Ntg) 0.4 mg Every 5 Minutes PRN SL Prn Chest Pain 02/16/17 16:45 03/18/17 16:44 Ondansetron HCl (Zofran) 4 mg Q6H PRN IVP Nausea & Vomiting 02/16/17 16:45 03/18/17 16:44 Pantoprazole (Protonix) 40 mg DAILY ORAL 02/28/17 09:00 03/30/17 08:59 03/01/17 08:55 Polyethylene Glycol (Miralax) 17 gm DAILYPRN PRN ORAL Constipation 02/16/17 16:45 03/18/17 16:44 Quetiapine Fumarate (SEROquel) 25 mg Q12HR ORAL 02/27/17 12:00 03/29/17 11:59 PELON FELIX M.D. Mar 02, 2017 09:33
[2017-03-02] MEDS: Heparin 5000 units/ml inj SUBQ SCH (10:32)
[2017-03-02 12:00] VITALS: BP 140/75
--- NOTE | 2017-03-02 12:28 | General Progress Note ---
Assessment/Plan Status: stable Status Narrative uncoaporative Assessment/Plan UTI Bilateral posterior thigh chronic nonhealing ulcers Venous stasis ulcers, bilateral, chronic, nonhealing ARF on CKD Obesity homeless anemia w/chair bound obesity Plan; refused Blood add seroquesl IV 75 h check labs in am- Consider DC Bactrim and Cipro per ID??? ( Cr rising) Monitor renal parameters- Add Norvasc for better BP control. adjust dose Avoid nephrotoxics Iron and B12 and gastric support DC planning? Subjective ROS Limited/Unobtainable: No Allergies: Coded Allergies: No Known Allergies (Unverified , 02/11/17) Objective Last 24 Hour Vital Signs Date Time Temp Pulse Resp B/P (MAP) Pulse Ox O2 Delivery O2 Flow Rate FiO2 03/02/17 10:27 70 145/75 03/02/17 08:00 96.0 82 16 140/75 96 Room Air 03/01/17 17:25 62 135/65 03/01/17 16:07 98.0 62 18 135/65 99 Room Air Intake and Output 03/02/17 03/03/17 19:00 07:00 # Bowel Movements 1 Height (Feet): 5 Height (Inches): 4.00 Weight (Pounds): 143 General Appearance: no apparent distress Objective PE not changed EFRA BRODY Mar 02, 2017 12:28
--- NOTE | 2017-03-02 16:54 | Pulmonology Progress Note ---
Assessment/Plan Problems: (1) Cellulitis (2) Decubitus ulcers (3) Venous stasis ulcer (4) ATN (acute tubular necrosis) Assessment/Plan pt is non-complianst continue the same wound care dc planning for today Subjective ROS Limited/Unobtainable: No Constitutional: Reports: no symptoms HEENT: Repors: no symptoms Respiratory: Reports: no symptoms Allergies: Coded Allergies: No Known Allergies (Unverified , 02/11/17) Objective Last 24 Hour Vital Signs Date Time Temp Pulse Resp B/P (MAP) Pulse Ox O2 Delivery O2 Flow Rate FiO2 03/02/17 12:00 98.1 67 16 140/75 96 Room Air 03/02/17 10:27 70 145/75 03/02/17 08:00 96.0 82 16 140/75 96 Room Air 03/01/17 17:25 62 135/65 Intake and Output 03/02/17 03/03/17 19:00 07:00 Intake Total 120 ml Balance 120 ml Intake Oral 120 ml # Voids 2 # Bowel Movements 2 Objective General Appearance: WD/WN HEENT: normocephalic, atraumatic Respiratory/Chest: chest wall non-tender, lungs clear Breasts: no masses Cardiovascular: normal peripheral pulses Abdomen: normal bowel sounds, soft, non tender Genitourinary: normal external genitalia ISMA PEPE Mar 02, 2017 16:54
--- NOTE | 2017-03-04 16:00 | Discharge Summary ---
Discharge Summary Hospital Course Date of Admission Feb 16, 2017 at 16:00 Date of Discharge Mar 02, 2017 at 15:10 Admitting Diagnosis cellulitis HPI Sangeeta Marroquin is a 67 year old female who was admitted on Feb 16, 2017 at 16: 00 for Cellulitis Hospital Course [id number] Discharge Discharge Disposition Patient was discharged home Discharge Diagnoses: Chery Choudhary NP Mar 04, 2017 16:00
--- NOTE | 2017-03-05 | Discharge Summary 2 SIG ---
DATE OF ADMISSION: 02/16/2017 DATE OF DISCHARGE: 03/02/2017 CONSULTANTS: 1. Edgar Chi M.D. 2. Es Tian M.D. BRIEF HOSPITAL COURSE: The patient is a 67-year-old female with history of chronic venous stasis ulcer on her posterior thigh and lower extremity. She states that she had been staying in a hotel room as they have lost their apartment. She has been admitted to multiple hospitals and unable to arrange home health for wound care secondary to her living situation. On evaluation at ED, wounds are oozing and has a palpable ulcer. She is nonambulatory and always in a wheelchair, which caused her to develop ulcers on the posterior thigh. There was concern for cellulitis with large amount of foul odor and purulent discharge coming out from the ulcers. She was given IV vancomycin and has major social challenges. She was admitted as she would need to be placed in a correction facility. She was followed by Infectious Diseases specialist. She was given IV vancomycin and cefepime. Urine culture showed growth of Proteus mirabilis and E. coli. Wound culture with MRSA. She was given wound care and underwent physical therapy and occupational therapy. She came in with anemia. Workup showed low iron and was given IV iron and folic acid. She had an episode of increase in creatinine. Renal failure possibly secondary to chronic kidney disease. Bactrim was discontinued. She had a renal ultrasound done that showed negative for hydronephrosis. She was given Norvasc and amlodipine for blood pressure control. She was referred to multiple nursing homes. Social service was called in as the patient verbalized she will not go to a facility where her son could not stay with her 24 hours. Discussed with patient the need for medical interventions that she required. The patient requested to return to [facility]. She was recommended to follow up with patient's capitated provider. She was provided cushion for her wheelchair. Cushion was delivered and the patient was eventually discharged. FINAL DIAGNOSES: 1. Cellulitis. 2. Venous stasis ulcer. 3. Acute renal failure due to acute tubular necrosis. 4. Chronic kidney disease. 5. Noncompliance. 6. Anemia. 7. Obesity. 8. Wheelchair-bound. 9. Homelessness. 10. Possible urinary tract infection with Proteus mirabilis and Escherichia coli. 11. 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 12. Thrombocytosis. DISCHARGE DISPOSITION: The patient signed homeless discharge. DISCHARGE MEDICATIONS: Continue with ciprofloxacin and Bactrim for five more days. FOLLOWUP: The patient was advised to follow up with capitated provider. Sergey Kilgore M.D. I have been assigned to dictate discharge summary on this account and I was not involved in the patient's management. Chery Choudhary N.P. DR: ALMAZ JOB#: [id number] CC:
== END 2017-03-02 15:10 | disposition home or self-care (01) | DRG 383 ==
LOC: EDBD 12:07 → EMR 12:50 → 4W 16:00 → EDBEDREQ 16:27
DX: L03.116 Cellulitis of left lower limb (principal); N17.0 Acute kidney failure with tubular necrosis; L89.150 Pressure ulcer of sacral region, unstageable; L03.115 Cellulitis of right lower limb; N39.0 Urinary tract infection, site not specified; L97.129 Non-pressure chronic ulcer of left thigh with unspecified severity; L97.119 Non-pressure chronic ulcer of right thigh with unspecified severity; I83.211 Varicose veins of right lower extremity with both ulcer of thigh and inflammation; I83.221 Varicose veins of left lower extremity with both ulcer of thigh and inflammation; E66.9 Obesity, unspecified; Z68.24 Body mass index [BMI] 24.0-24.9, adult; D47.3 Essential (hemorrhagic) thrombocythemia; I16.0 Hypertensive urgency; Z99.3 Dependence on wheelchair; Z59.0 Homelessness; D64.9 Anemia, unspecified; I12.9 Hypertensive chronic kidney disease with stage 1 through stage 4 chronic kidney disease, or unspecified chronic kidney disease; N18.9 Chronic kidney disease, unspecified; B96.20 Unspecified Escherichia coli [E. coli] as the cause of diseases classified elsewhere; B96.4 Proteus (mirabilis) (morganii) as the cause of diseases classified elsewhere; B95.62 Methicillin resistant Staphylococcus aureus infection as the cause of diseases classified elsewhere; Z53.29 Procedure and treatment not carried out because of patient's decision for other reasons; Z91.19 Patient's noncompliance with other medical treatment and regimen
CPT/HCPCS: 36415; 71010; 76775; 80048; 80053; 80076; 80202; 81003; 82550; 82607; 82728; 82746; 83036; 83540; 83550; 83605; 83615; 83735; 83880; 84100; 84133; 84300; 84550; 85007; 85025; 85044; 85060; 85610; 85651; 85730; 86140; 87040; 87070; 87081; 87086; 87181; 87205; 89050; 94664; 94760; 99285